=== PATIENT | female | born 1940 | race Caucasian/White ===

== ENCOUNTER 2016-08-03 08:55 | Outpatient (CLI) | payer MEDICARE ==
[2016-08-03 10:13] LABS: #Basophils 0.1 thou/uL (0.0-0.2); #Eosinphils 0.3 thou/uL (0.0-0.7); #Lymphocytes 1.1 thou/uL (1.20-3.40); #Monocytes 0.5 thou/uL (0.11-0.59); %Basophils 1.4 % (0.0-1.0); %Eosinophils 6.7 % (0.0-10.0); %Lymphocytes 21.3 % (21.0-51.0); %Monocytes 10.1 % (0.0-10.0); %Neutrophils 60.5 % (42.0-75.0); Hemoglobin 12.8 g/dL (12.0-16.0); Mean Corpuscular HGB CONC 31.1 g/dL (32.0-36.0); Mean Corpuscular Hemoglobin 30.8 pg (27.0-31.0); Mean Corpuscular Volume 98.8 fl (81.0-99.0); Mean Platelet Volume 9.2 fL (7.4-10.4); Platelet Count 172 thou/uL (130-400); RBC Distribution Width 15.2 % (11.5-14.5); Red Blood Cell (RBC) Count 4.15 mill/uL (4.20-5.40)
[2016-08-03 10:30] LABS: ALT (SGPT) 17 U/L (0-55); AST (SGOT) 25 U/L (5-34); Alkaline Phosphatase 111 U/L (40-150); Anion Gap 15 mmol/L (10-20); BUN (Urea Nitrogen) 16 mg/dL (9.8-20.1); Bilirubin, Total 0.5 mg/dL (0.2-1.2); Calc. Creatinine Clearance 0 mL/min (70-130); Calcium 9.3 mg/dL (7.8-10.44); Carbon Dioxide 27 mmol/L (23-31); Chloride 104 mmol/L (98-107); Cholesterol 200 mg/dL (< 200 Desired); Estimated GFR-MDRD 45; Globulin 2.4 g/dL (2.4-3.5); Glucose 93 mg/dL (83-110); HDL Cholesterol 40 mg/dL (>60 Neg Risk); LDL Cholesterol, Calculated 133 mg/dL; Potassium 4.6 mmol/L (3.5-5.1); Protein, Total 6.4 g/dL (5.8-8.1); Sodium 141 mmol/L (136-145); Triglycerides 137 mg/dL (Less than 150)
[2016-08-03 10:42] LABS: Bilirubin Negative (Negative); Blood, Urine Negative (Negative); Clarity Clear (Clear); Glucose, Urine (Dipstick) Negative (Negative); Leukocyte Negative (Negative); Nitrite Negative (Negative); Protein, Urine (Dipstick) Negative (Neg-Trace); Urobilinogen 0.2 mg/dL (0.2-1.0); pH, Urine 5.5 (5.0-9.0)
[2016-08-03 10:45] LABS: Specific Gravity, Urine 1.028 (1.002-1.036)
[2016-08-03 10:57] LABS: Bacteria/HPF None Seen HPF (None Seen); RBC/HPF None Seen HPF (0-3); Squamous Epithelial 0-3 HPF (0-3); WBC/HPF None Seen HPF (0-3)
[2016-08-03 10:59] LABS: Crystals/HPF 1+ URIC ACID HPF (Negative)
== END 2016-08-03 08:56 ==
LOC: MADLABBHPM 08:55
PROVIDERS: ATTEND Family Medicine
DX: E78.5 Hyperlipidemia, unspecified (principal); I10 Essential (primary) hypertension
CPT/HCPCS: 36415; 80053; 80061; 81001; 84443; 85025

== ENCOUNTER 2016-10-30 09:28 | Outpatient (CLI) | payer MEDICARE ==
[2016-10-30 10:12] LABS: #Basophils 0.1 thou/uL (0.0-0.2); #Eosinphils 0.2 thou/uL (0.0-0.7); #Monocytes 0.5 thou/uL (0.11-0.59); #Neutrophils 4.8 thou/uL (1.40-6.50); %Basophils 1.6 % (0.0-1.0); %Eosinophils 3.1 % (0.0-10.0); %Lymphocytes 15.1 % (21.0-51.0); %Monocytes 7.7 % (0.0-10.0); %Neutrophils 72.5 % (42.0-75.0); Hemoglobin 13.5 g/dL (12.0-16.0); Mean Corpuscular HGB CONC 32.6 g/dL (32.0-36.0); Mean Corpuscular Hemoglobin 32.7 pg (27.0-31.0); Mean Corpuscular Volume 100.2 fl (81.0-99.0); Platelet Count 162 thou/uL (130-400); RBC Distribution Width 13.1 % (11.5-14.5); Red Blood Cell (RBC) Count 4.13 mill/uL (4.20-5.40); White Blood Cell (WBC) Count 6.7 thou/uL (4.8-10.8)
[2016-10-30 10:26] LABS: Hemoglobin A1c 5.1 % (4.0-6.0)
[2016-10-30 10:38] LABS: ALT (SGPT) 18 U/L (8-55); AST (SGOT) 24 U/L (5-34); Albumin 3.7 g/dL (3.4-4.8); Alkaline Phosphatase 122 U/L (40-150); Anion Gap 14 mmol/L (10-20); BUN (Urea Nitrogen) 22 mg/dL (9.8-20.1); Bilirubin, Direct 0.3 mg/dL (0.1-0.3); Bilirubin, Total 0.7 mg/dL (0.2-1.2); Calc. Creatinine Clearance 0 mL/min (70-130); Carbon Dioxide 27 mmol/L (23-31); Cardiac Risk 4.5 (Less than 4.5); Chloride 106 mmol/L (98-107); Cholesterol 174 mg/dl (< 200 Desired); Estimated GFR-MDRD 50; Glucose 98 mg/dL (83-110); HDL Cholesterol 39 mg/dL (>60 Neg Risk); LDL Cholesterol, Calculated 107 mg/dL; Potassium 4.6 mmol/L (3.5-5.1); Protein, Total 6.2 g/dL (6.0-8.3); Sodium 142 mmol/L (136-145); Triglycerides 140 mg/dL (Less than 150)
== END 2016-10-30 09:29 | disposition home or self-care (01) ==
LOC: MADLABBHPM 09:28
PROVIDERS: ATTEND Family Medicine
DX: E78.5 Hyperlipidemia, unspecified (principal); N18.3 Chronic kidney disease, stage 3 (moderate)
CPT/HCPCS: 36415; 80048; 80061; 80076; 83036; 85025

== ENCOUNTER 2017-01-27 09:29 | Outpatient (CLI) | payer MEDICARE ==
[2017-01-27 11:37] LABS: ALT (SGPT) 24 U/L (8-55); AST (SGOT) 28 U/L (5-34); Albumin 3.9 g/dL (3.4-4.8); Alkaline Phosphatase 127 U/L (40-150); Anion Gap 11 mmol/L (10-20); BUN (Urea Nitrogen) 20 mg/dL (9.8-20.1); Bilirubin, Direct 0.2 mg/dL (0.1-0.3); Bilirubin, Total 0.6 mg/dL (0.2-1.2); Calc. Creatinine Clearance 0 mL/min (70-130); Calcium 9.2 mg/dL (7.8-10.44); Carbon Dioxide 26 mmol/L (23-31); Cardiac Risk 5.1 (Less than 4.5); Chloride 108 mmol/L (98-107); Cholesterol 195 mg/dl (< 200 Desired); Estimated GFR-MDRD 43; Glucose 95 mg/dL (83-110); HDL Cholesterol 38 mg/dL (>60 Neg Risk); LDL Cholesterol, Calculated 130 mg/dL; Potassium 4.3 mmol/L (3.5-5.1); Protein, Total 6.7 g/dL (6.0-8.3); Sodium 141 mmol/L (136-145); Triglycerides 133 mg/dL (Less than 150)
== END 2017-01-27 09:30 | disposition home or self-care (01) ==
LOC: MADLABBHPM 09:29
PROVIDERS: ATTEND Family Medicine
DX: E78.5 Hyperlipidemia, unspecified (principal); E55.9 Vitamin D deficiency, unspecified; I10 Essential (primary) hypertension
CPT/HCPCS: 36415; 80048; 80061; 80076; 82306

== ENCOUNTER 2018-03-15 18:49 | Inpatient (IN) | payer MEDICARE ==
[2018-03-15 19:57] VITALS: BMI 38.9
[2018-03-15] MEDS ORDERED: Acetaminophen 325 MG TAB PO PRN (21:47)
[2018-03-15] MEDS ORDERED: traMADol HCl 50 MG TAB PO SCH (22:30)
[2018-03-15] MEDS ORDERED: Fluticasone Propionate Nasal Spray 16 gm Bottle NASAL SCH (22:30)
[2018-03-15] MEDS ORDERED: Acyclovir 200 mg Capsule PO SCH (22:30)
[2018-03-15] MEDS ORDERED: Melatonin 3 MG TAB PO SCH (22:30)
[2018-03-15] MEDS ORDERED: Pregabalin 50 MG CAP PO SCH (22:30)
[2018-03-16] MEDS: Piperacillin/Tazobactam 4.5 GM in Sodium Chloride 0.9% 100 ML IVPB SCH ×4 (01:39→19:20)
[2018-03-16] MEDS: Acyclovir 200 mg Capsule PO SCH ×2 (08:01→20:52)
[2018-03-16] MEDS: Loratadine 10 MG TAB PO SCH (08:02)
[2018-03-16] MEDS: Pregabalin 50 MG CAP PO SCH ×2 (08:02→20:54)
[2018-03-16] MEDS: Diltiazem HCl SR 60 mg Capsule PO SCH (08:03)
[2018-03-16] MEDS: Aspirin 325 MG TAB PO SCH (08:04)
[2018-03-16] MEDS: Donepezil HCl 10 MG TAB PO SCH (08:05)
[2018-03-16] MEDS ORDERED: Prevnar 13-Val Conj/PF 0.5 ML SYRINGE IM ONE (09:00)
--- NOTE | 2018-03-16 13:28 | HP ---
Admitted to [facility] extended care on the evening of 03/15/2018. CHIEF COMPLAINT: Weakness and wound care. PRESENT ILLNESS: The patient is a 77-year-old white female who has a history of hypertension, paroxy smal atrial fibrillation, pulmonary embolism from a deep vein thrombosis in 2011 for which she underw ent an inferior vena caval filter placement. She also has a history of Alzheimer's dementia. The nyla watson lives at home and has been independent of her ADLs. The patient has a history of bunion deform ity of her feet. She has developed a chronic ulcer on the medial aspect of the MP joint of the left great toe. She was admitted to the hospital at [facility] on 03/09/2018 because the foot was red and appeared infected and appeared to be involved in the bone. The patient was hospitalized at [facility] from 03/09/2018 until 03/15/2018. There she was seen by Dr. Mcintosh, a podiat rist and required an amputation of the left great toe and partial amputation of the first metatarsal and debridement of an abscess. The wound was left open and packed with wet to dry dressing. The wou nd grew a Pseudomonas aeruginosa and Enterococcus species. She was seen in consultation by Dr. Sorto , Infectious Disease physician, who recommended treatment for the Pseudomonas, which had brought susc eptibility and for the Enterococcus using the Zosyn. Once the wound looks much better can switch her to Cipro and Augmentin p.o. for a 4-week period. The patient was discharged on the Zosyn with the i ntent to later switch her to these oral medications. The wound gradually improved and it was recomme nded that she be managed with the wound VAC. She was left very weak, had not really been up out of b ed. Her deep venous thrombosis prophylaxis was managed with Lovenox. While in the hospital the giovanna ent underwent an arterial Doppler of the left lower leg that showed no evidence of arterial occlusion . The patient was transferred to [facility] late on the evening of 03/15/2018 and her routine medicines were continued and the Zosyn was continued. The patient was seen early on the morning of 03/16/2018. She said she was feeling better. Her foot felt better and she was having no pain. The patient said she has not been up yet out of bed other th an to sit on the side of the bed. She said she is feeling better. At home she was independent of al l her ADLs. She lives with her and has family that looks in on her frequently. PAST HISTORY: Hospitalized at [facility] from 03/09/2018 until 03/15/2018 for osteomyelit is of the first metatarsal head and proximal phalanx of the left great toe requiring amputation of th e toe and partial amputation of the metatarsal on 03/11/2018. The wound healing by secondary intenti on. The patient has generalized osteoarthritis, has undergone a left total knee replacement in 2014, has hypertension, paroxysmal atrial fibrillation, history of pulmonary embolism of the left leg in 2 012 requiring placement of an inferior vena caval filter. The placement of the filter device was on 09/2013 after development of a deep vein thrombosis, history of a pulmonary embolus was in 2011. She has peripheral neuropathy of the lower extremity, chronic pain from the peripheral neuropathy manage d with Lyrica. She has trouble sleeping at night due to the pain and manages with tramadol. She has gastroesophageal reflux disease, Alzheimer's disease, herpes simplex, intermittent outbreaks managed with prophylactic medication. Obesity. The patient had a resection of the left fifth metatarsal he ad 2011. She has spondylosis of the LS spine. She has had orthoscopic surgery on the right shoulder and rotator cuff repair in 1998, this required a repeat right rotator cuff repair in 2002. She has had a stomach stapling done in 1981 and then removal of the stapling in 1984. She has had a VAN, hem orrhoidectomy, cholecystectomy. She has venous insufficiency of the lower extremities. The patient had a left heart catheterization in 2013 which showed no significant coronary artery disease. PRESENT MEDICATIONS: Acetaminophen 650 mg every 6 hours as needed, acyclovir 400 mg b.i.d., aspirin 325 mg daily, vitamin D3 4000 units daily, Diltiazem SR 120 mg daily, Aricept 5 mg daily, fluticasone 2 sprays in each nostrum daily, melatonin 3 mg at bedtime, Claritin 10 mg daily, Namenda 5 mg daily, pantoprazole 40 mg daily, Zosyn 4.5 grams q.6 hours, Lyrica 50 mg b.i.d., tramadol 50 mg at bedtime. ALLERGIES: MORPHINE. REVIEW OF SYSTEMS: The patient said she is just weak. She has had no fever. She does not think her weight has changed any. HEAD AND NECK: No complaints. PULMONARY: No shortness of breath. CARDIOVASCULAR: No chest pain. GASTROINTESTINAL: No nausea or vomiting. Appetite is not as good as usual. Bowels are moving well. MUSCULOSKELETAL: Left foot is not hurting. The patient said the swelling that she usually has in th e leg is much better since she has been at bed rest. ADLs: Ordinarily independent of her ADLs at [facility] prior to this hospitalization. HABITS: Alcohol none. Tobacco none. SOCIAL HISTORY: The patient lives at home with her , has family that lives close that assists her with her instrumental ADLs. CODE STATUS: Full code. PHYSICAL EXAMINATION: GENERAL: Shows a pleasant 77-year-old white female who is sitting up in bed. She recognizes me, rec ognizes her [id number], knows she is in the hospital and had no complaint. She appeared in no d istress. VITAL SIGNS: Shows a temperature of 98.2, pulse 71, respirations 20, O2 saturation 94% on room air, blood pressure 140/61. Her weight is 256. HEAD: Normocephalic and atraumatic. EYES: Pupils were equal, round, and reactive. EARS: Left TM clear, right TM blocked by some dry cerumen. NOSE: Normal. MOUTH AND THROAT: Normal. NECK: Carotids are equal and strong, no bruits. Thyroid not enlarged. LUNGS: Clear. HEART: Regular rate. No murmurs. ABDOMEN: Obese. There is no organomegaly nor areas of tenderness. EXTREMITIES: Lower extremities, no edema. Right foot, there is no edema. The patient has a very sm all hallux valgus deformity, left foot. The patient has had a recent amputation of the great toe and partial resection of the first metacarpal. The wound is open and there is a deep pocket that was pa cked with moistened gauze. This was removed. The pocket looks clean. There is no odor. The surrou nding tissue is not red. She has 1 holding suture proximal and distal. PT will be packing this usin g a wound VAC. The pulses in the foot are 2+. NEUROLOGIC: The patient is alert, oriented to person, place, and situation. There is no focal weakn ess, just generalized weakness. IMPRESSION: 1. Generalized weakness and deconditioning. A. Following recent amputation of the left first toe and partial resection of the metatarsal for ost eomyelitis. 2. Osteomyelitis involving the left first metatarsal head and proximal phalanx. A. Status post amputation of the left great toe and partial amputation of the metacarpal and debride ment of an abscess of the left foot on 03/11/[address] Paramjit Mcintosh, DPKillian. B. Cultures grew Pseudomonas aeruginosa and Enterococcus species. C. Managed initially with Zosyn and later will be switched to Cipro and Augmentin for a 4-week perio d. D. Wound management with a wound VAC as of 03/16/2018. 3. Hospitalized at [facility] from 03/09/2018 until 03/15/2018 for osteomyelitis of the p roximal phalanx of the left great toe and the metatarsal head. 4. Paroxysmal atrial fibrillation. A. Rate controlled. 5. History of pulmonary embolism from the left leg deep vein thrombosis 2011. A. Recurrence of the deep venous thrombosis of the lower extremity requiring inferior vena caval serafin ter placement in 2014. 6. Peripheral neuropathy of the lower extremities. 7. Spondylosis of the lumbosacral spine. 8. Chronic pain secondary to peripheral neuropathy of the extremities and generalized osteoarthritis . A. Controlled as of 03/16/2018. 9. Gastroesophageal reflux disease. 10. Insomnia. 11. Obesity. 12. Herpes simplex, intermittent. 13. Vitamin D deficiency. 14. Alzheimer's disease. PLAN: The patient has been admitted to [facility] for physical therapy for strengthening, cond itioning and gait training. Also, she has been admitted here for wound care using a wound VAC. PT w ill tend the wound and this wound VAC will be changed on Wednesday, Wednesday, and Fridays. The wound l ooks very clean. We will continue the Zosyn and after wound continues to improve we will switch to o ral medication using Cipro and Augmentin for a 4-week period.
[2018-03-16] MEDS ORDERED: Piperacillin/Tazobactam 4.5 GM VIAL ONE (19:03)
[2018-03-16] MEDS: Fluticasone Propionate Nasal Spray 16 gm Bottle NASAL SCH (20:51)
[2018-03-16] MEDS: traMADol HCl 50 MG TAB PO SCH (20:52)
[2018-03-16] MEDS: Melatonin 3 MG TAB PO SCH (20:54)
[2018-03-17] MEDS: Piperacillin/Tazobactam 4.5 GM in Sodium Chloride 0.9% 100 ML IVPB SCH ×4 (03:27→20:37)
[2018-03-17 05:56] LABS: #Basophils 0.1 thou/uL (0.0-0.2); #Eosinphils 0.5 thou/uL (0.0-0.7); #Monocytes 0.6 thou/uL (0.11-0.59); #Neutrophils 6.3 thou/uL (1.40-6.50); %Basophils 1.4 % (0.0-1.0); %Eosinophils 5.4 % (0.0-10.0); %Lymphocytes 11.7 % (21.0-51.0); %Monocytes 6.9 % (0.0-10.0); %Neutrophils 74.7 % (42.0-75.0); Hemoglobin 11.9 g/dL (12.0-16.0); Mean Corpuscular HGB CONC 32.2 g/dL (32.0-36.0); Mean Corpuscular Hemoglobin 29.5 pg (27.0-31.0); Mean Corpuscular Volume 91.5 fL (78.0-98.0); Mean Platelet Volume 9.4 fL (7.4-10.4); Platelet Count 235 thou/uL (130-400); RBC Distribution Width 13.6 % (11.5-14.5); Red Blood Cell (RBC) Count 4.03 mill/uL (4.20-5.40); White Blood Cell (WBC) Count 8.4 thou/uL (4.8-10.8)
[2018-03-17 06:08] LABS: ALT (SGPT) 9 U/L (8-55); AST (SGOT) 17 U/L (5-34); Albumin 2.9 g/dL (3.4-4.8); Alkaline Phosphatase 74 U/L (40-150); Anion Gap 13 mmol/L (10-20); BUN (Urea Nitrogen) 9 mg/dL (9.8-20.1); Bilirubin, Total 0.4 mg/dL (0.2-1.2); Calc. Creatinine Clearance 115 mL/min (70-130); Calcium 8.8 mg/dL (7.8-10.44); Carbon Dioxide 27 mmol/L (23-31); Chloride 106 mmol/L (98-107); Estimated GFR-MDRD 75; Globulin 2.6 g/dL (2.4-3.5); Glucose 129 mg/dL (83-110); Potassium 3.3 mmol/L (3.5-5.1); Protein, Total 5.5 g/dL (6.0-8.3); Sodium 143 mmol/L (136-145)
[2018-03-17] MEDS: Diltiazem HCl SR 60 mg Capsule PO SCH (08:50)
[2018-03-17] MEDS: Acyclovir 200 mg Capsule PO SCH ×2 (08:50→20:37)
[2018-03-17] MEDS: Pregabalin 50 MG CAP PO SCH ×2 (08:51→20:38)
[2018-03-17] MEDS: Aspirin 325 MG TAB PO SCH (08:52)
[2018-03-17] MEDS: Loratadine 10 MG TAB PO SCH (08:52)
[2018-03-17] MEDS: Donepezil HCl 10 MG TAB PO SCH (08:52)
[2018-03-17] MEDS: Enoxaparin Sodium 40 MG/0.4 ML SYRINGE SC SCH (08:52)
--- NOTE | 2018-03-17 09:07 | PRG ---
DATE OF SERVICE: 03/17/2018 SUBJECTIVE: The patient said that she slept good last night. She is feeling good this morning. Yes terday she sat up some and worked with therapy. The wound VAC was placed in the wound on the left fo ot and has been working fine. OBJECTIVE: The patient is lying in bed this with the head elevated. She is alert, talkative, appear s comfortable and in no distress. Her vital signs show a temperature of 97.4, pulse 72, respirations 20, O2 sat 95% on room air, blood pressure 139/72. Lungs are clear. Heart, regular rate. Extremit ies: No edema. The left foot is bandaged with a wound VAC. Lab shows an H&H of 11.9 and 36.9, WBC count 8400 with 75% segs, 12% lymphocytes, and platelet count of 235,000. Her sodium was 143, potassium 3.3, BUN 9, creatinine 0.75, glucose 129. ASSESSMENT: 1. Generalized weakness and deconditioning. A. Following recent amputation of the left first toe and partial resection of the metatarsal for ost eomyelitis. B. Improved, sitting up in a bedside chair some as of 03/17/2018. 2. Osteomyelitis involving the left first metatarsal head and proximal phalanx. A. Status post amputation of the left great toe and partial amputation of the metacarpal and debride ment of an abscess of the left foot on 03/11/[address] Paramjit Mcintosh, DPM. B. Cultures grew Pseudomonas aeruginosa and Enterococcus species. C. Managed initially with Zosyn and later will be switched to Cipro and Augmentin for a 4-week perio d. D. Wound management with a wound VAC that was initiated on 03/16/2018. 1. Stable as of 03/17/2018. 3. Hospitalized at [facility] from 03/09/2018 until 03/15/2018 for osteomyelitis of the p roximal phalanx of the left great toe and the metatarsal head. 4. Paroxysmal atrial fibrillation. A. Rate controlled. 5. History of pulmonary embolism from the left leg deep vein thrombosis 2011. A. Recurrence of the deep venous thrombosis of the lower extremity requiring inferior vena caval serafin ter placement in 2014. 6. Peripheral neuropathy of the lower extremities. 7. Spondylosis of the lumbosacral spine. 8. Chronic pain secondary to peripheral neuropathy of the extremities and generalized osteoarthritis . A. Controlled as of 03/16/2018. 9. Gastroesophageal reflux disease. 10. Insomnia. 11. Obesity. 12. Herpes simplex, intermittent. 13. Vitamin D deficiency. 14. Alzheimer's disease. 15. Mild hypokalemia. PLAN: Continue present care. Continue PT, OT. Will place the patient on potassium supplementation.
[2018-03-17] MEDS: Potassium Chloride 10 MEQ TAB PO SCH (17:07)
[2018-03-17] MEDS: Fluticasone Propionate Nasal Spray 16 gm Bottle NASAL SCH (20:37)
[2018-03-17] MEDS: Melatonin 3 MG TAB PO SCH (20:37)
[2018-03-17] MEDS: traMADol HCl 50 MG TAB PO SCH (20:39)
[2018-03-18] MEDS: Piperacillin/Tazobactam 4.5 GM in Sodium Chloride 0.9% 100 ML IVPB SCH ×4 (01:59→20:23)
[2018-03-18] MEDS: Aspirin 325 MG TAB PO SCH (09:48)
[2018-03-18] MEDS: Potassium Chloride 10 MEQ TAB PO SCH ×2 (09:49→17:08)
[2018-03-18] MEDS: Pregabalin 50 MG CAP PO SCH ×2 (09:49→20:25)
[2018-03-18] MEDS: Loratadine 10 MG TAB PO SCH (09:50)
[2018-03-18] MEDS: Diltiazem HCl SR 60 mg Capsule PO SCH (09:50)
[2018-03-18] MEDS: Donepezil HCl 10 MG TAB PO SCH (09:50)
[2018-03-18] MEDS: Enoxaparin Sodium 40 MG/0.4 ML SYRINGE SC SCH (09:51)
[2018-03-18] MEDS: Acyclovir 200 mg Capsule PO SCH ×2 (09:51→20:24)
[2018-03-18 10:12] LABS: ALT (SGPT) 9 U/L (8-55); AST (SGOT) 16 U/L (5-34); Albumin 3.2 g/dL (3.4-4.8); Alkaline Phosphatase 75 U/L (40-150); Anion Gap 15 mmol/L (10-20); BUN (Urea Nitrogen) 14 mg/dL (9.8-20.1); Bilirubin, Total 0.4 mg/dL (0.2-1.2); Calc. Creatinine Clearance 104 mL/min (70-130); Calcium 9.1 mg/dL (7.8-10.44); Carbon Dioxide 27 mmol/L (23-31); Chloride 107 mmol/L (98-107); Estimated GFR-MDRD 67; Globulin 2.5 g/dL (2.4-3.5); Glucose 142 mg/dL (83-110); Potassium 3.7 mmol/L (3.5-5.1); Protein, Total 5.7 g/dL (6.0-8.3); Sodium 145 mmol/L (136-145)
--- NOTE | 2018-03-18 10:26 | PRG ---
DATE OF SERVICE: 03/18/2018 SUBJECTIVE: The patient says she is doing better. She has been up sitting in the chair and physical therapy has been working with her. She has been walking up to 30 feet with a rolling walker and ass istance. A wound VAC on the left foot has been changed on Wednesday, Wednesday, and Fridays. OBJECTIVE: GENERAL: The patient is sitting up in a chair, is alert, appears very comfortable in no distress. V ITAL SIGNS: Her temperature is 98.5, pulse 69, respirations 20, O2 sat 95% on room air, blood pressu re 155/67. LUNGS: Clear. HEART: Regular rate. EXTREMITIES: Left foot dressing is dry. Wound VAC is in place. LABORATORY DATA: Hemoglobin A1c last done in October of last year was 5.1. ASSESSMENT: 1. Generalized weakness and deconditioning. A. Following recent amputation of the left first toe and partial resection of the metatarsal for ost eomyelitis. B. Improved, tolerating, sitting in bed, up chair and walking short distances as of 03/18/2018. 2. Osteomyelitis involving the left first metatarsal head and proximal phalanx. A. Status post amputation of the left great toe and partial amputation of the metacarpal and debride ment of an abscess of the left foot on 03/11/[address] Paramjit Mcintosh, DPKillian. B. Cultures grew Pseudomonas aeruginosa and Enterococcus species. C. Managed initially with Zosyn and later will be switched to Cipro and Augmentin for a 4-week perio d. D. Wound management with a wound VAC that was initiated on 03/16/2018. 1. Stable as of 03/18/2018. 3. Hospitalized at [facility] from 03/09/2018 until 03/15/2018 for osteomyelitis of the p roximal phalanx of the left great toe and the metatarsal head. 4. Paroxysmal atrial fibrillation. A. Rate controlled. 5. History of pulmonary embolism from the left leg deep vein thrombosis 2011. A. Recurrence of the deep venous thrombosis of the lower extremity requiring inferior vena caval serafin ter placement in 2014. 6. Peripheral neuropathy of the lower extremities. 7. Spondylosis of the lumbosacral spine. 8. Chronic pain secondary to peripheral neuropathy of the extremities and generalized osteoarthritis . A. Controlled as of 03/16/2018. 9. Gastroesophageal reflux disease. 10. Insomnia. 11. Obesity. 12. Herpes simplex, intermittent. 13. Vitamin D deficiency. 14. Alzheimer's disease. 15. Mild hypokalemia. PLAN: Continue PT and OT. Continue wound care. Continue antibiotics.
[2018-03-18] MEDS: Melatonin 3 MG TAB PO SCH (20:24)
[2018-03-18] MEDS: Fluticasone Propionate Nasal Spray 16 gm Bottle NASAL SCH (20:24)
[2018-03-18] MEDS: traMADol HCl 50 MG TAB PO SCH (20:25)
[2018-03-19] MEDS: Piperacillin/Tazobactam 4.5 GM in Sodium Chloride 0.9% 100 ML IVPB SCH ×4 (04:24→21:59)
[2018-03-19 05:50] LABS: #Basophils 0.2 thou/uL (0.0-0.2); #Eosinphils 0.7 thou/uL (0.0-0.7); #Monocytes 0.8 thou/uL (0.11-0.59); #Neutrophils 4.5 thou/uL (1.40-6.50); %Basophils 2.5 % (0.0-1.0); %Eosinophils 9.5 % (0.0-10.0); %Lymphocytes 13.6 % (21.0-51.0); %Monocytes 11.1 % (0.0-10.0); %Neutrophils 63.3 % (42.0-75.0); Hemoglobin 12.1 g/dL (12.0-16.0); Mean Corpuscular HGB CONC 33.1 g/dL (32.0-36.0); Mean Corpuscular Hemoglobin 30.3 pg (27.0-31.0); Mean Corpuscular Volume 91.5 fL (78.0-98.0); Mean Platelet Volume 8.6 fL (7.4-10.4); Platelet Count 241 thou/uL (130-400); RBC Distribution Width 13.6 % (11.5-14.5); White Blood Cell (WBC) Count 7.1 thou/uL (4.8-10.8)
[2018-03-19] MEDS: Diltiazem HCl SR 60 mg Capsule PO SCH (10:00)
[2018-03-19] MEDS: Loratadine 10 MG TAB PO SCH (10:00)
[2018-03-19] MEDS: Aspirin 325 MG TAB PO SCH (10:00)
[2018-03-19] MEDS: Potassium Chloride 10 MEQ TAB PO SCH ×2 (10:02→17:15)
[2018-03-19] MEDS: Acyclovir 200 mg Capsule PO SCH ×2 (10:02→20:34)
[2018-03-19] MEDS: Pregabalin 50 MG CAP PO SCH ×2 (10:02→20:35)
[2018-03-19] MEDS: Donepezil HCl 10 MG TAB PO SCH (10:03)
[2018-03-19] MEDS: Enoxaparin Sodium 40 MG/0.4 ML SYRINGE SC SCH (10:03)
[2018-03-19 15:17] LABS: Hemoglobin A1c 5.7 % (4.0-6.0)
[2018-03-19] MEDS: Melatonin 3 MG TAB PO SCH (20:35)
[2018-03-19] MEDS: Fluticasone Propionate Nasal Spray 16 gm Bottle NASAL SCH (20:35)
[2018-03-19] MEDS: traMADol HCl 50 MG TAB PO SCH (20:36)
[2018-03-20] MEDS: Piperacillin/Tazobactam 4.5 GM in Sodium Chloride 0.9% 100 ML IVPB SCH ×3 (04:15→17:08)
[2018-03-20] MEDS: Donepezil HCl 10 MG TAB PO SCH (09:00)
[2018-03-20] MEDS: Saccharomyces boulardii 250 MG CAP PO SCH (09:00)
[2018-03-20] MEDS: Acyclovir 200 mg Capsule PO SCH ×2 (09:00→20:25)
[2018-03-20] MEDS: Aspirin 325 MG TAB PO SCH (09:01)
[2018-03-20] MEDS: Loratadine 10 MG TAB PO SCH (09:01)
[2018-03-20] MEDS: Diltiazem HCl SR 60 mg Capsule PO SCH (09:01)
[2018-03-20] MEDS: Potassium Chloride 10 MEQ TAB PO SCH ×2 (09:01→17:08)
[2018-03-20] MEDS: Pregabalin 50 MG CAP PO SCH ×2 (09:01→20:26)
[2018-03-20] MEDS: Enoxaparin Sodium 40 MG/0.4 ML SYRINGE SC SCH (09:02)
[2018-03-20] MEDS ORDERED: Amoxicillin/Potassium Clav 875 MG TAB PO SCH (19:45)
[2018-03-20] MEDS: Fluticasone Propionate Nasal Spray 16 gm Bottle NASAL SCH (20:25)
[2018-03-20] MEDS: Ciprofloxacin 500 MG TAB PO SCH (20:25)
[2018-03-20] MEDS: Melatonin 3 MG TAB PO SCH (20:26)
[2018-03-20] MEDS: traMADol HCl 50 MG TAB PO SCH (20:27)
[2018-03-21] MEDS: Ciprofloxacin 500 MG TAB PO SCH ×2 (05:37→20:11)
[2018-03-21] MEDS: Acyclovir 200 mg Capsule PO SCH ×2 (08:34→20:11)
[2018-03-21] MEDS: Diltiazem HCl SR 60 mg Capsule PO SCH (08:34)
[2018-03-21] MEDS: Saccharomyces boulardii 250 MG CAP PO SCH (08:35)
[2018-03-21] MEDS: Amoxicillin/Potassium Clav 875 MG TAB PO SCH ×2 (08:35→17:17)
[2018-03-21] MEDS: Pregabalin 50 MG CAP PO SCH ×2 (08:35→20:11)
[2018-03-21] MEDS: Loratadine 10 MG TAB PO SCH (08:35)
[2018-03-21] MEDS: Potassium Chloride 10 MEQ TAB PO SCH ×2 (08:35→17:17)
[2018-03-21] MEDS: Aspirin 325 MG TAB PO SCH (08:36)
[2018-03-21] MEDS: Enoxaparin Sodium 40 MG/0.4 ML SYRINGE SC SCH (08:36)
[2018-03-21] MEDS: Donepezil HCl 10 MG TAB PO SCH (08:36)
--- NOTE | 2018-03-21 11:43 | PRG ---
DATE OF SERVICE: 03/19/2018 SUBJECTIVE: The patient said overall she is feeling better. They did have some trouble with restart ing of her IV that ceased working yesterday, but was able to be restarted. Hope to try to keep the s ite until 03/21/2018, in order to continue the piperacillin and tazobactam, plan on stopping that then. If the IV is lost, it cannot not be easily restarted. We will go ahead and make the swit ch to oral antibiotics before then. Nurses said that when the wound VAC was changed yesterday, [facility] said that the wound looked very, very good and clean. The patient has developed some diarrhea. Has not had the odor of C. difficile. She was recently started on some supplements that may be the c ulprit. She is not on any laxatives. OBJECTIVE: The patient is sitting up in a chair. She is alert, talkative, looks better, and appears in no acute distress. Her vital signs show a temperature 97.1, pulse 56, respirations 16, O2 sat 96 % on room air, blood pressure 167/88. Lungs are clear. Heart, regular rate. Lower extremities with trace edema. Left foot is wrapped and dressing is dry. There is a wound VAC present. LABORATORY DATA: Her lab shows an H and H of 12.1 and 36.6, white cell count 7100 with 63% segs, 14% lymphocytes, and a platelet count of 241,000. Sed rate 55. Sodium 145, potassium 3.7, BUN 14, crea tinine 0.83, GFR 67, glucose 142. ASSESSMENT: 1. Generalized weakness and deconditioning. A. Following recent amputation of the left first toe and partial resection of the metatarsal for ost eomyelitis. B. Improved, tolerating, sitting in bed, up chair and walking short distances as of 03/19/2018. 2. Osteomyelitis involving the left first metatarsal head and proximal phalanx. A. Status post amputation of the left great toe and partial amputation of the metacarpal and debride ment of an abscess of the left foot on 03/11/[address] Paramjit Mcintosh, DPKillian. B. Cultures grew Pseudomonas aeruginosa and Enterococcus species. C. Managed initially with Zosyn and later will be switched to Cipro and Augmentin for a 4-week perio d. D. Wound management with a wound VAC that was initiated on 03/16/2018. 1. Gradual improvement, VAC system working well as of 03/19/2018. 3. Hospitalized at [facility] from 03/09/2018 until 03/15/2018 for osteomyelitis of the p roximal phalanx of the left great toe and the metatarsal head. 4. Paroxysmal atrial fibrillation. A. Rate controlled. 5. History of pulmonary embolism from the left leg deep vein thrombosis 2011. A. Recurrence of the deep venous thrombosis of the lower extremity requiring inferior vena caval serafin ter placement in 2014. 6. Peripheral neuropathy of the lower extremities. 7. Spondylosis of the lumbosacral spine. 8. Chronic pain secondary to peripheral neuropathy of the extremities and generalized osteoarthritis . A. Controlled as of 03/16/2018. 9. Gastroesophageal reflux disease. 10. Insomnia. 11. Obesity. 12. Herpes simplex, intermittent. 13. Vitamin D deficiency. 14. Alzheimer's disease. 15. Mild hypokalemia. A. Improved with potassium up to 3.7. 16. Diarrhea. PLAN: We will continue present care. Continue wound VAC care. Continue PT/OT. We will stop the di etary supplements that may be contributing to the diarrhea and place patient on a probiotic. If the patient loses her IV site, we will switch to the oral antibiotics that she has Augmentin and Cipro fo r a 4-week period.
--- NOTE | 2018-03-21 11:45 | PRG ---
DATE OF SERVICE: 03/21/2018 SUBJECTIVE: The patient said she is doing better, feeling better. Her diarrhea is much improved. T he patient's IV infiltrated last night and the Zosyn was stopped and she was started on oral antibiot ics using Cipro 500 mg b.i.d. for 1 month, and Augmentin 875 b.i.d. for one month. The patient is ju st walking back to the bathroom to her room aid carrying her wound VAC and with her walker. She is s itting in a chair and looks comfortable and in no distress. Her vital signs show a temperature of 97 .7, pulse 68, respirations 97, blood pressure this morning is pending, yesterday morning 142/69, in t he evening, 178/84. Lungs are clear. Heart, regular rate. Lower extremities, no edema. Left foot is wrapped with a bandage and has the wound VAC attached. This is due to be changed by PT later toda y. The patient's hemoglobin A1c was 5.7. C-reactive protein was 2.38. ASSESSMENT: 1. Generalized weakness and deconditioning. A. Following recent amputation of the left first toe and partial resection of the metatarsal for ost eomyelitis. B. Improved, transferring easier and walking longer distances with the use of a walker as of 018. 2. Osteomyelitis involving the left first metatarsal head and proximal phalanx. A. Status post amputation of the left great toe and partial amputation of the metacarpal and debride ment of an abscess of the left foot on 03/11/[address] Paramjit Mcintosh, DPM. B. Cultures grew Pseudomonas aeruginosa and Enterococcus species. C. Initial management with Zosyn was stopped on the evening of 03/20/2018. The patient was switched to Cipro and Augmentin orally for a 4-week period as of the evening of 03/20/2018. D. Wound management with a wound VAC that was initiated on 03/16/2018. 1. Improved as of 03/21/2018. 3. Hospitalized at [facility] from 03/09/2018 until 03/15/2018 for osteomyelitis of the p roximal phalanx of the left great toe and the metatarsal head. 4. Paroxysmal atrial fibrillation. A. Rate controlled. 5. History of pulmonary embolism from the left leg deep vein thrombosis 2011. A. Recurrence of the deep venous thrombosis of the lower extremity requiring inferior vena caval serafin ter placement in 2014. 6. Peripheral neuropathy of the lower extremities. 7. Spondylosis of the lumbosacral spine. 8. Chronic pain secondary to peripheral neuropathy of the extremities and generalized osteoarthritis . A. Controlled as of 03/16/2018. 9. Gastroesophageal reflux disease. 10. Insomnia. 11. Obesity. 12. Herpes simplex, intermittent. 13. Vitamin D deficiency. 14. Alzheimer's disease. 15. Mild hypokalemia. PLAN: Continue present care. We will continue the PT. Continue the wound VAC. The patient will be on the Augmentin 875 mg b.i.d. and the Cipro 500 mg b.i.d. for 4 weeks. This was started on the nareshsandy shelbyg of 03/20/2018.
[2018-03-21] MEDS: Melatonin 3 MG TAB PO SCH (20:11)
[2018-03-21] MEDS: Fluticasone Propionate Nasal Spray 16 gm Bottle NASAL SCH (20:11)
[2018-03-21] MEDS: traMADol HCl 50 MG TAB PO SCH (20:12)
[2018-03-22] MEDS: Ciprofloxacin 500 MG TAB PO SCH ×2 (05:47→20:23)
[2018-03-22] MEDS: Enoxaparin Sodium 40 MG/0.4 ML SYRINGE SC SCH (09:00)
[2018-03-22] MEDS: Amoxicillin/Potassium Clav 875 MG TAB PO SCH ×2 (09:00→17:06)
[2018-03-22] MEDS: Acyclovir 200 mg Capsule PO SCH ×2 (09:01→20:23)
[2018-03-22] MEDS: Aspirin 325 MG TAB PO SCH (09:01)
[2018-03-22] MEDS: Donepezil HCl 10 MG TAB PO SCH (09:01)
[2018-03-22] MEDS: Diltiazem HCl SR 60 mg Capsule PO SCH (09:03)
[2018-03-22] MEDS: Loratadine 10 MG TAB PO SCH (09:03)
[2018-03-22] MEDS: Potassium Chloride 10 MEQ TAB PO SCH ×2 (09:03→17:07)
[2018-03-22] MEDS: Pregabalin 50 MG CAP PO SCH ×2 (09:04→20:24)
[2018-03-22] MEDS: Saccharomyces boulardii 250 MG CAP PO SCH (09:04)
--- NOTE | 2018-03-22 09:15 | PRG ---
DATE OF SERVICE: 03/22/2018 SUBJECTIVE: The patient thinks she is doing better. She said she is walking further with physical t herapy. Therapist had changed her dressing on the wound VAC on the left foot yesterday. Wound is do ing better. OBJECTIVE: The patient lying in bed, alert, appears comfortable, in no distress. Her vital signs sh ow a temperature of 97.5, pulse 57, respirations 18, O2 sat 97% on room air, blood pressure 156/81. Lungs are clear. Heart, regular rate. Extremities, no edema. Left foot has dressing on the wound V AC present. ASSESSMENT: 1. Generalized weakness and deconditioning. A. Following recent amputation of the left first toe and partial resection of the metatarsal for ost eomyelitis. B. Improved, transferring easier and walking longer distances with the use of a walker as of 018. 2. Osteomyelitis involving the left first metatarsal head and proximal phalanx. A. Status post amputation of the left great toe and partial amputation of the metacarpal and debride ment of an abscess of the left foot on 03/11/[address] Paramjit Mcintosh, DPM. B. Cultures grew Pseudomonas aeruginosa and Enterococcus species. C. Initial management with Zosyn was stopped on the evening of 03/20/2018. The patient was switched to Cipro and Augmentin orally for a 4-week period as of the evening of 03/20/2018. D. Wound management with a wound VAC that was initiated on 03/16/2018. 1. Improved as of 03/22/2018. 3. Hospitalized at [facility] from 03/09/2018 until 03/15/2018 for osteomyelitis of the p roximal phalanx of the left great toe and the metatarsal head. 4. Paroxysmal atrial fibrillation. A. Rate controlled. 5. History of pulmonary embolism from the left leg deep vein thrombosis 2011. A. Recurrence of the deep venous thrombosis of the lower extremity requiring inferior vena caval serafin ter placement in 2014. 6. Peripheral neuropathy of the lower extremities. 7. Spondylosis of the lumbosacral spine. 8. Chronic pain secondary to peripheral neuropathy of the extremities and generalized osteoarthritis . A. Controlled as of 03/16/2018. 9. Gastroesophageal reflux disease. 10. Insomnia. 11. Obesity. 12. Herpes simplex, intermittent. 13. Vitamin D deficiency. 14. Alzheimer's disease. 15. Mild hypokalemia. PLAN: Continue present care. Continue PT. Continue wound care with the wound VAC.
[2018-03-22] MEDS: Fluticasone Propionate Nasal Spray 16 gm Bottle NASAL SCH (20:23)
[2018-03-22] MEDS: Melatonin 3 MG TAB PO SCH (20:24)
[2018-03-22] MEDS: traMADol HCl 50 MG TAB PO SCH (20:25)
[2018-03-23] MEDS: Ciprofloxacin 500 MG TAB PO SCH ×2 (05:52→20:26)
[2018-03-23] MEDS: Loratadine 10 MG TAB PO SCH (08:57)
[2018-03-23] MEDS: Enoxaparin Sodium 40 MG/0.4 ML SYRINGE SC SCH (08:57)
[2018-03-23] MEDS: Potassium Chloride 10 MEQ TAB PO SCH ×2 (08:57→17:09)
[2018-03-23] MEDS: Saccharomyces boulardii 250 MG CAP PO SCH (08:58)
[2018-03-23] MEDS: Acyclovir 200 mg Capsule PO SCH ×2 (08:58→20:26)
[2018-03-23] MEDS: Diltiazem HCl SR 60 mg Capsule PO SCH (08:58)
[2018-03-23] MEDS: Donepezil HCl 10 MG TAB PO SCH (08:58)
[2018-03-23] MEDS: Aspirin 325 MG TAB PO SCH (08:59)
[2018-03-23] MEDS: Amoxicillin/Potassium Clav 875 MG TAB PO SCH ×2 (08:59→17:09)
[2018-03-23] MEDS: Pregabalin 50 MG CAP PO SCH ×2 (08:59→20:26)
--- NOTE | 2018-03-23 11:04 | PRG ---
DATE OF SERVICE: 03/23/2018 SUBJECTIVE: The patient said she is doing better. She is doing much better with therapy, walking fu rther. The patient said that she wants to go home. She lives with her family and they think that he r will be able to assist her as needed along with home health, to assist with in-home therapy and for the wound VAC care. OBJECTIVE: GENERAL: The patient is sitting up in a chair, preparing to eat breakfast. She is alert, talkative, in good spirits, in no distress. VITAL SIGNS: Shows a temperature of 97.4, pulse 70, respirations 18, O2 sat 97% on room air, blood p ressure 136/76. LUNGS: Clear. HEART: Regular rate. EXTREMITIES: No edema. A wrap on the left foot with wound VAC. ASSESSMENT: 1. Generalized weakness and deconditioning. A. Following recent amputation of the left first toe and partial resection of the metatarsal for ost eomyelitis. B. Improved, transferring easier and walking longer distances with the use of a walker as of 018. 2. Osteomyelitis involving the left first metatarsal head and proximal phalanx. A. Status post amputation of the left great toe and partial amputation of the metacarpal and debride ment of an abscess of the left foot on 03/11/[address] Paramjit Mcintosh, DPM. B. Cultures grew Pseudomonas aeruginosa and Enterococcus species. C. Initial management with Zosyn was stopped on the evening of 03/20/2018. The patient was switched to Cipro and Augmentin orally for a 4-week period as of the evening of 03/20/2018. D. Wound management with a wound VAC that was initiated on 03/16/2018. 1. Improved as of 03/23/2018. 3. Hospitalized at [facility] from 03/09/2018 until 03/15/2018 for osteomyelitis of the p roximal phalanx of the left great toe and the metatarsal head. 4. Paroxysmal atrial fibrillation. A. Rate controlled. 5. History of pulmonary embolism from the left leg deep vein thrombosis 2011. A. Recurrence of the deep venous thrombosis of the lower extremity requiring inferior vena caval serafin ter placement in 2014. 6. Peripheral neuropathy of the lower extremities. 7. Spondylosis of the lumbosacral spine. 8. Chronic pain secondary to peripheral neuropathy of the extremities and generalized osteoarthritis . A. Controlled as of 03/16/2018. 9. Gastroesophageal reflux disease. 10. Insomnia. 11. Obesity. 12. Herpes simplex, intermittent. 13. Vitamin D deficiency. 14. Alzheimer's disease. 15. Mild hypokalemia. PLAN: Continue present care. Continue PT. Continue wound VAC care. Nurses family are making arran gements for her discharge on 03/25/2018. Home health will be contacted for in-home PT and OT and wound VAC care.
[2018-03-23] MEDS: Melatonin 3 MG TAB PO SCH (20:26)
[2018-03-23] MEDS: Fluticasone Propionate Nasal Spray 16 gm Bottle NASAL SCH (20:26)
[2018-03-23] MEDS: traMADol HCl 50 MG TAB PO SCH (20:27)
[2018-03-24 05:27] LABS: #Basophils 0.1 thou/uL (0.0-0.2); #Eosinphils 0.5 thou/uL (0.0-0.7); #Lymphocytes 1.4 thou/uL (1.20-3.40); #Monocytes 0.7 thou/uL (0.11-0.59); #Neutrophils 4.4 thou/uL (1.40-6.50); %Basophils 1.7 % (0.0-1.0); %Eosinophils 6.7 % (0.0-10.0); %Lymphocytes 19.4 % (21.0-51.0); %Monocytes 9.5 % (0.0-10.0); %Neutrophils 62.7 % (42.0-75.0); Mean Corpuscular HGB CONC 32.3 g/dL (32.0-36.0); Mean Corpuscular Hemoglobin 29.9 pg (27.0-31.0); Mean Corpuscular Volume 92.5 fL (78.0-98.0); Mean Platelet Volume 8.4 fL (7.4-10.4); Platelet Count 292 thou/uL (130-400); RBC Distribution Width 13.8 % (11.5-14.5); Red Blood Cell (RBC) Count 4.01 mill/uL (4.20-5.40); White Blood Cell (WBC) Count 6.9 thou/uL (4.8-10.8)
[2018-03-24 05:33] LABS: Anion Gap 12 mmol/L (10-20); BUN (Urea Nitrogen) 11 mg/dL (9.8-20.1); Calc. Creatinine Clearance 107 mL/min (70-130); Calcium 9.3 mg/dL (7.8-10.44); Carbon Dioxide 27 mmol/L (23-31); Chloride 109 mmol/L (98-107); Estimated GFR-MDRD 69; Glucose 109 mg/dL (83-110); Potassium 4.5 mmol/L (3.5-5.1); Sodium 143 mmol/L (136-145)
[2018-03-24] MEDS: Ciprofloxacin 500 MG TAB PO SCH ×2 (05:33→19:59)
[2018-03-24] MEDS: Enoxaparin Sodium 40 MG/0.4 ML SYRINGE SC SCH (08:55)
[2018-03-24] MEDS: Aspirin 325 MG TAB PO SCH (08:56)
[2018-03-24] MEDS: Acyclovir 200 mg Capsule PO SCH ×2 (08:56→19:59)
[2018-03-24] MEDS: Saccharomyces boulardii 250 MG CAP PO SCH (08:56)
[2018-03-24] MEDS: Loratadine 10 MG TAB PO SCH (08:57)
[2018-03-24] MEDS: Diltiazem HCl SR 60 mg Capsule PO SCH (08:57)
[2018-03-24] MEDS: Pregabalin 50 MG CAP PO SCH ×2 (08:58→20:00)
[2018-03-24] MEDS: Amoxicillin/Potassium Clav 875 MG TAB PO SCH ×2 (08:58→17:10)
[2018-03-24] MEDS: Donepezil HCl 10 MG TAB PO SCH (08:58)
[2018-03-24] MEDS: Potassium Chloride 10 MEQ TAB PO SCH (09:58)
--- NOTE | 2018-03-24 09:59 | PRG ---
DATE OF SERVICE: 03/24/2018 SUBJECTIVE: The patient has been doing very well with her therapy. Yesterday observed while PT nathanael dos santosd the wound VAC and her wound on her left foot looked much better. The two sutures were removed on the proximal and distal end of the incisions. The wound looks much better, it is smaller. There is excellent granulation filling in and the depth of the wound is less. There was no surrounding redne ss, no odor, no drainage. The wound was redressed with the wound VAC. The patient said that they ar e making preparations for her discharge tomorrow 03/25/2018. Home health will hand picker on her care an d do the wound VAC care. OBJECTIVE: The patient is sitting up in her bedside chair. She is alert, is in no distress. She lo oks very comfortable. Her temperature is 96.8, pulse 72, respirations 20, O2 sat 96% on room air, bl ood pressure 145/69. Lungs are clear. Heart, regular rate. Extremities; no edema. Lab shows an H&H of 12 and 37.1, WBC count 6900 with 63% segs, 19% lymphocytes, platelet count of 292 ,000. Sodium 143, potassium 4.5, BUN 11, creatinine 0.81, GFR 69, glucose 109, hemoglobin A1c is 5.7 , done on 03/19/2018, C-reactive protein pending. ASSESSMENT: 1. Generalized weakness and deconditioning. A. Following recent amputation of the left first toe and partial resection of the metatarsal for ost eomyelitis. B. Improved, transferring easier and walking longer distances with the use of a walker as of 018. 2. Osteomyelitis involving the left first metatarsal head and proximal phalanx. A. Status post amputation of the left great toe and partial amputation of the metacarpal and debride ment of an abscess of the left foot on 03/11/[address] Paramjit Mcintosh, AKILAH. B. Cultures grew Pseudomonas aeruginosa and Enterococcus species. C. Initial management with Zosyn was stopped on the evening of 03/20/2018. The patient was switched to Cipro and Augmentin orally for a 4-week period as of the evening of 03/20/2018. D. Wound management with a wound VAC that was initiated on 03/16/2018. 1. Continued improvement as of 03/24/2018. 3. Hospitalized at [facility] from 03/09/2018 until 03/15/2018 for osteomyelitis of the p roximal phalanx of the left great toe and the metatarsal head. 4. Paroxysmal atrial fibrillation. A. Rate controlled. 5. History of pulmonary embolism from the left leg deep vein thrombosis 2011. A. Recurrence of the deep venous thrombosis of the lower extremity requiring inferior vena caval serafin ter placement in 2014. 6. Peripheral neuropathy of the lower extremities. 7. Spondylosis of the lumbosacral spine. 8. Chronic pain secondary to peripheral neuropathy of the extremities and generalized osteoarthritis . A. Controlled as of 03/24/2018. 9. Gastroesophageal reflux disease. 10. Insomnia. 11. Obesity. 12. Herpes simplex, intermittent. 13. Vitamin D deficiency. 14. Alzheimer's disease. 15. Mild hypokalemia. A. Resolved as of 03/24/2018. PLAN: Continue present care. Continue PT. Will stop the potassium supplementation. The patient is anticipating discharge tomorrow. Home health has been contacted and will hand picker on her wound VAC c are in the home.
[2018-03-24 12:46] LABS: CRP (Inflammatory) 1.18 mg/dL (= or < 0.5)
[2018-03-24] MEDS ORDERED: Bismuth Subs 17.5mg/mL Susp 120 ML BOT PO PRN ×4 (14:16→15:39)
[2018-03-24] MEDS: traMADol HCl 50 MG TAB PO SCH (19:59)
[2018-03-24] MEDS: Fluticasone Propionate Nasal Spray 16 gm Bottle NASAL SCH (20:00)
[2018-03-24] MEDS: Melatonin 3 MG TAB PO SCH (20:00)
[2018-03-25] MEDS: Ciprofloxacin 500 MG TAB PO SCH (05:42)
[2018-03-25 07:28] VITALS: BP 132/61; TEMP 97.8
[2018-03-25] MEDS: Diltiazem HCl SR 60 mg Capsule PO SCH (08:43)
[2018-03-25] MEDS: Enoxaparin Sodium 40 MG/0.4 ML SYRINGE SC SCH (08:43)
[2018-03-25] MEDS: Donepezil HCl 10 MG TAB PO SCH (08:44)
[2018-03-25] MEDS: Saccharomyces boulardii 250 MG CAP PO SCH (08:44)
[2018-03-25] MEDS: Loratadine 10 MG TAB PO SCH (08:44)
[2018-03-25] MEDS: Aspirin 325 MG TAB PO SCH (08:44)
[2018-03-25] MEDS: Amoxicillin/Potassium Clav 875 MG TAB PO SCH (08:45)
[2018-03-25] MEDS: Pregabalin 50 MG CAP PO SCH (08:45)
[2018-03-25] MEDS: Acyclovir 200 mg Capsule PO SCH (08:45)
[2018-03-25] MEDS ORDERED: AMOXicillin 250 MG CAP PO SCH (15:00)
--- NOTE | 2018-03-28 08:38 | DIS ---
DATE OF ADMISSION: 03/15/2018 DATE OF DISCHARGE: 03/25/2018 The patient was admitted to [facility] on 03/15/2018 and discharged on 03/25/2018 . FINAL DIAGNOSES: 1. Generalized weakness and deconditioning. A. Following recent amputation of the left first toe and partial resection of the metatarsal for ost eomyelitis. B. Improved as of 03/25/2018. Walking from 100-200 feet with a rolling walker. Transferring was [facility]. 2. Osteomyelitis involving the left first metatarsal head and proximal phalanx. A. Status post amputation of the left great toe and partial amputation of the metacarpal and debride ment of an abscess of the left foot on 03/11/[address] Paramjit Mcintosh, AKILAH. B. Cultures grew Pseudomonas aeruginosa and Enterococcus species. C. Initial management with Zosyn was stopped on the evening of 03/20/2018. The patient was switched to Cipro and Augmentin orally for a 4-week period as of the evening of 03/20/2018. D. Wound management with a wound VAC that was initiated on 03/16/2018. 1. Continued improvement with excellent granulation tissue formation as of 03/25/2018. 3. Hospitalized at [facility] from 03/09/2018 until 03/15/2018 for osteomyelitis of the p roximal phalanx of the left great toe and the metatarsal head. 4. Paroxysmal atrial fibrillation. A. Rate controlled. 5. History of pulmonary embolism from the left leg deep vein thrombosis 2011. A. Recurrence of the deep venous thrombosis of the lower extremity requiring inferior vena caval serafin ter placement in 2014. 6. Peripheral neuropathy of the lower extremities. 7. Spondylosis of the lumbosacral spine. 8. Chronic pain secondary to peripheral neuropathy of the extremities and generalized osteoarthritis . A. Controlled as of 03/24/2018. 9. Gastroesophageal reflux disease. 10. Insomnia. 11. Obesity. 12. Herpes simplex, intermittent. 13. Vitamin D deficiency. 14. Alzheimer's disease. 15. Mild hypokalemia. A. Resolved as of 03/24/2018. 16. Diarrhea. A. Suspect secondary to the antibiotic, Augmentin. SUMMARY: The patient is a 77-year-old white female who has a history of hypertension, paroxysmal atr ial fibrillation, pulmonary embolism from a deep vein thrombosis in 2011 for which she underwent an i nferior vena caval filtration placement. She has a history of Alzheimer's dementia. She is ordinari ly independent of all her ADLs. She lives at home with her , has her family that is there to assist her for all her instrumental ADLs. The patient had bunion formations on her feet and as a res ult had developed a chronic ulcer over the bunion on the left foot involving the first MP joint. Thi s gradually had eroded into the bone and she had developed an osteomyelitis. She was hospitalized at [facility] from 03/09/2018 until 03/15/2018. There, Dr. Mcintosh, her Podiatr y performed an amputation of left great toe and partial amputation of the first metatarsal distally w ith debridement of the abscess. Wound was left open with healing by secondary intention. Initially, they used wet to dry dressing and have switched her to a wound VAC. The wound grew Pseudomonas aeru ginosa and Enterococcus. These bacteria were sensitive to the Zosyn that she was receiving IV, also sensitive to amoxicillin, Augmentin and Cipro. The Infectious Disease mgmt consultant, Dr. Sorto had trevon mmended continuation of the Zosyn for a little longer and then switching her to Cipro and Augmentin f or a 4-week period. The patient underwent an arterial Doppler of the left lower leg that showed no e vidence of any arterial occlusion. She was referred to [facility] extended care for PT for str engthening exercise, gait training, conditioning exercise and also for wound care with the wound VAC. HOSPITAL COURSE: The patient made excellent progress with her physical therapy, had gone essentially just bed and chair rest to where she was walking 100-200 feet with a rolling walker, was able to tra nsfer independently with just standby assistance. Her wound over her left foot showed great improvem ent. The depth to the wound looked much smaller. There was excellent development of granulation tis mary carmen in the wound bed. She had a simple suture applied in the proximal and distal extent of the incis ion that were removed. The wound was the wound VAC on Wednesday, Wednesday and Wednesday. The patie nt was left on the Zosyn until 03/19/2018. Her IV had infiltrated and it had already been restarted on one occasion with difficulty. It was left out since the wound was doing very well and she was sta rted on Augmentin and Cipro. The patient later developed some very loose watery bowel movements that did not have any appearance or odor of C. diff. It is felt this may be related to the supplements s he was receiving, that is, the Zion and the Ensure. Both of these were stopped. She still had the diarrhea. It was felt that this may be related to the Augmentin. In review of the cultures from the foot, the Enterococcus was sensitive also to the amoxicillin and the Augmentin. Since the Augmentin is frequently the cause of upset stomach and diarrhea, we will try switching her to amoxicillin and see if this will help. This should give adequate coverage to the organism. The patient also had sto ol specimens ordered to be collected on the morning of the day of her discharge to ensure there was n ot a pathogen. Stools for C and S were ordered, stools for lactoferrin and stools for C. diff. Thes e hopefully will be collected prior to her discharge. If not, then this will be collected as an outp atient. The patient markedly improved and wanted to go home. The family felt that they could adequa tely take care of her there. Her son and [id number] live very close and are there to assist as needed and arrangements have been made for [facility] to come out and do the wound VAC care and the wound VAC reapplied on the day of her discharge, 03/25/2018. Home health will also continue with PT and OT. The patient was discharged in good condition on 03/25/2018. DISPOSITION: Regular diet. Activities, ambulate with the use of a walker. Wound care, [facility] will continue the wound VAC care to her left foot 3 days a week on Wednesday, Wednesday and Wed. The patient had been set up and has the equipment that she will need. Followup, the patient du e to be seen by her promotional model, Dr. Mcintosh on 03/28/2018. MEDICATIONS: Acetaminophen 325 mg 2 every 6 hours as needed; acyclovir 400 mg b.i.d.; amoxicillin 50 0 mg t.i.d. until 04/17/2018; aspirin 325 mg daily; vitamin D3 4000 units daily; Cipro 500 mg b.i.d. until 04/17/2018, that is, 23 more days; diltiazem SR 120 mg daily; donepezil 5 mg daily; fluticasone 2 sprays in each nostrum at bedtime; loratadine 10 mg daily; melatonin 10 mg at bedtime; Namenda 5 m g daily; pantoprazole 40 mg daily; Lyrica 50 mg b.i.d.; Florastor 250 mg daily and tramadol 50 mg at bedtime. FOLLOWUP: The patient will be seen in followup by myself in 2 weeks with a CBC, basic metabolic pane l, sed rate and CRP. The patient will follow up with Dr. Mcintosh, her promotional model on 03/28/2018 . CODE STATUS: Full code.
== END 2018-03-25 11:45 | disposition home health service (06) | DRG 540 ==
LOC: MADMS 18:49
PROVIDERS: ADMIT Family Medicine; ATTEND Family Medicine
DX: M86.8X7 Other osteomyelitis, ankle and foot (principal); K52.1 Toxic gastroenteritis and colitis; R53.1 Weakness; Z51.89 Encounter for other specified aftercare; I10 Essential (primary) hypertension; I48.0 Paroxysmal atrial fibrillation; Z86.711 Personal history of pulmonary embolism; Z86.718 Personal history of other venous thrombosis and embolism; G30.9 Alzheimer's disease, unspecified; F02.80 Dementia in other diseases classified elsewhere, unspecified severity, without behavioral disturbance, psychotic disturbance, mood disturbance, and anxiety; L97.529 Non-pressure chronic ulcer of other part of left foot with unspecified severity; Z89.412 Acquired absence of left great toe; M15.9 Polyosteoarthritis, unspecified; Z96.652 Presence of left artificial knee joint; K21.9 Gastro-esophageal reflux disease without esophagitis; B00.9 Herpesviral infection, unspecified; E66.9 Obesity, unspecified; G62.9 Polyneuropathy, unspecified; M47.897 Other spondylosis, lumbosacral region; G89.29 Other chronic pain; G47.00 Insomnia, unspecified; E55.9 Vitamin D deficiency, unspecified; E87.6 Hypokalemia; T36.95XA Adverse effect of unspecified systemic antibiotic, initial encounter; Z68.38 Body mass index [BMI] 38.0-38.9, adult
CPT/HCPCS: 36415; 36416; 80048; 80053; 83036; 85025; 85652; 86140; G8987-GO-CL; G8988-GO-CI; J1650; J2543; J7050

== ENCOUNTER 2018-04-09 08:15 | Outpatient (CLI) | payer MEDICARE ==
[2018-04-09 08:25] LABS: #Basophils 0.2 thou/uL (0.0-0.2); #Eosinphils 0.3 thou/uL (0.0-0.7); #Lymphocytes 1.3 thou/uL (1.20-3.40); #Monocytes 0.7 thou/uL (0.11-0.59); %Basophils 2.4 % (0.0-1.0); %Eosinophils 4.5 % (0.0-10.0); %Lymphocytes 17.1 % (21.0-51.0); %Monocytes 9.1 % (0.0-10.0); Mean Corpuscular HGB CONC 29.8 g/dL (32.0-36.0); Mean Corpuscular Volume 97.3 fL (78.0-98.0); Mean Platelet Volume 6.8 fL (7.4-10.4); Platelet Count 204 thou/uL (130-400); RBC Distribution Width 15.3 % (11.5-14.5); Red Blood Cell (RBC) Count 4.48 mill/uL (4.20-5.40); White Blood Cell (WBC) Count 7.5 thou/uL (4.8-10.8)
[2018-04-09 08:36] LABS: Anion Gap 22 mmol/L (10-20); BUN (Urea Nitrogen) 10 mg/dL (9.8-20.1); Calc. Creatinine Clearance 0 mL/min (70-130); Calcium 9.1 mg/dL (7.8-10.44); Carbon Dioxide 24 mmol/L (23-31); Chloride 105 mmol/L (98-107); Estimated GFR-MDRD 71; Potassium 4.3 mmol/L (3.5-5.1); Sodium 147 mmol/L (136-145)
[2018-04-09 11:14] LABS: Glucose 39 mg/dL (83-110)
[2018-04-09 15:02] LABS: ALT (SGPT) 21 U/L (8-55); AST (SGOT) 36 U/L (5-34); Albumin 3.4 g/dL (3.4-4.8); Alkaline Phosphatase 108 U/L (40-150); Anion Gap 13 mmol/L (10-20); BUN (Urea Nitrogen) 9 mg/dL (9.8-20.1); Bilirubin, Total 0.6 mg/dL (0.2-1.2); Calc. Creatinine Clearance 0 mL/min (70-130); Calcium 9.2 mg/dL (7.8-10.44); Carbon Dioxide 27 mmol/L (23-31); Chloride 107 mmol/L (98-107); Estimated GFR-MDRD 70; Globulin 2.8 g/dL (2.4-3.5); Glucose 121 mg/dL (83-110); Potassium 4.2 mmol/L (3.5-5.1); Protein, Total 6.2 g/dL (6.0-8.3); Sodium 143 mmol/L (136-145)
[2018-04-09 15:28] LABS: CRP (Inflammatory) 1.35 mg/dL (= or < 0.5)
[2018-04-12 18:11] LABS: Neutral Fats And/Or Soaps Normal (.)
== END 2018-04-09 08:16 | disposition home or self-care (01) ==
LOC: MADLAB 08:15
PROVIDERS: ATTEND Emergency Medicine Emergency Medical Services
DX: R19.7 Diarrhea, unspecified (principal); I48.0 Paroxysmal atrial fibrillation; I10 Essential (primary) hypertension; Z79.2 Long term (current) use of antibiotics
CPT/HCPCS: 80048; 80053; 82705; 85025; 85652; 86140; 87045; 87046; 87324; 87449; 87899

== ENCOUNTER 2018-12-23 11:04 | Emergency (ER) | payer MEDICARE ==
[2018-12-23 12:03] LABS: #Basophils 0.1 thou/uL (0.0-0.2); #Eosinphils 0.2 thou/uL (0.0-0.7); #Lymphocytes 0.9 thou/uL (1.20-3.40); #Monocytes 0.8 thou/uL (0.11-0.59); #Neutrophils 7.4 thou/uL (1.40-6.50); %Basophils 0.9 % (0.0-1.0); %Eosinophils 1.7 % (0.0-10.0); %Lymphocytes 9.8 % (21.0-51.0); %Monocytes 8.6 % (0.0-10.0); Hemoglobin 12.1 g/dL (12.0-16.0); Mean Corpuscular HGB CONC 30.6 g/dL (32.0-36.0); Mean Corpuscular Hemoglobin 27.2 pg (27.0-31.0); Mean Platelet Volume 9.4 fL (7.4-10.4); Platelet Count 155 thou/uL (130-400); RBC Distribution Width 16.5 % (11.5-14.5); Red Blood Cell (RBC) Count 4.43 mill/uL (4.20-5.40); White Blood Cell (WBC) Count 9.4 thou/uL (4.8-10.8)
[2018-12-23] MEDS ORDERED: cefTRIAXone\\ROCEPHIN 1 GM VIAL ONE (12:05)
[2018-12-23 12:16] LABS: Anion Gap 14 mmol/L (10-20); BUN (Urea Nitrogen) 20 mg/dL (9.8-20.1); Calc. Creatinine Clearance 0 mL/min (70-130); Calcium 9.1 mg/dL (7.8-10.44); Carbon Dioxide 24 mmol/L (23-31); Chloride 109 mmol/L (98-107); Estimated GFR-MDRD 49; Glucose 107 mg/dL (83-110); Sodium 143 mmol/L (136-145)
[2018-12-23] MEDS ORDERED: Sodium Chloride 0.9% 250 ML 250 ML ONE (13:01)
--- NOTE | 2018-12-23 13:24 | RAD ---
RIGHT FOOT 3 VIEWS: Date: 12/23/18 HISTORY: Wound infection. Redness and cellulitis. FINDINGS: Degenerative changes in the intertarsal joints and at the tarsometatarsal joints. Degenerative changes at the MTP joints. There are erosive changes involving the head of the fifth metatarsal which could represent changes of osteomyelitis. There is soft tissue swelling at this site. Soft tissue swelling is seen dorsally involving the midfoot and forefoot. IMPRESSION: Osteopenia and degenerative changes of the foot as described. Erosive changes involving the lateral a spect of the distal fifth metatarsal could represent changes of osteomyelitis. Diffuse soft tissue sw elling in the midfoot and forefoot. POS: [facility]
== END 2018-12-23 14:28 | disposition short-term general hospital (02) ==
LOC: MADERS 11:04
DX: M86.9 Osteomyelitis, unspecified (principal); I48.91 Unspecified atrial fibrillation; I49.9 Cardiac arrhythmia, unspecified; K21.9 Gastro-esophageal reflux disease without esophagitis; F03.90 Unspecified dementia, unspecified severity, without behavioral disturbance, psychotic disturbance, mood disturbance, and anxiety; Z79.899 Other long term (current) drug therapy; Z79.82 Long term (current) use of aspirin
CPT/HCPCS: 80048; 85025; 87040; 96365; 96375; J0696; J3370; J7050

== ENCOUNTER 2018-12-28 13:16 | Inpatient (IN) | payer MEDICARE ==
[2018-12-30] MEDS ORDERED: traMADol HCl 50 MG TAB PO PRN (18:12)
[2018-12-30] MEDS: AMOXicillin 250 MG CAP PO SCH (22:50)
[2018-12-31 05:08] LABS: #Basophils 0.1 thou/uL (0.0-0.2); #Eosinphils 0.4 thou/uL (0.0-0.7); #Lymphocytes 0.8 thou/uL (1.20-3.40); #Monocytes 0.7 thou/uL (0.11-0.59); #Neutrophils 6.7 thou/uL (1.40-6.50); %Basophils 1.2 % (0.0-1.0); %Eosinophils 4.5 % (0.0-10.0); %Lymphocytes 8.7 % (21.0-51.0); %Monocytes 7.6 % (0.0-10.0); %Neutrophils 77.9 % (42.0-75.0); Hemoglobin 11.3 g/dL (12.0-16.0); Mean Corpuscular HGB CONC 32.6 g/dL (32.0-36.0); Mean Corpuscular Hemoglobin 28.2 pg (27.0-31.0); Mean Corpuscular Volume 86.3 fL (78.0-98.0); Mean Platelet Volume 8.4 fL (7.4-10.4); Platelet Count 151 thou/uL (130-400); RBC Distribution Width 15.4 % (11.5-14.5); Red Blood Cell (RBC) Count 4.02 mill/uL (4.20-5.40); White Blood Cell (WBC) Count 8.6 thou/uL (4.8-10.8)
[2018-12-31 05:22] LABS: ALT (SGPT) 25 U/L (8-55); AST (SGOT) 25 U/L (5-34); Albumin 3.3 g/dL (3.4-4.8); Alkaline Phosphatase 94 U/L (40-150); Anion Gap 15 mmol/L (10-20); BUN (Urea Nitrogen) 30 mg/dL (9.8-20.1); Bilirubin, Total 0.4 mg/dL (0.2-1.2); Calc. Creatinine Clearance 40 mL/min (70-130); Carbon Dioxide 24 mmol/L (23-31); Chloride 112 mmol/L (98-107); Estimated GFR-MDRD 23; Globulin 2.8 g/dL (2.4-3.5); Glucose 117 mg/dL (83-110); Potassium 3.5 mmol/L (3.5-5.1); Protein, Total 6.1 g/dL (6.0-8.3); Sodium 147 mmol/L (136-145)
[2018-12-31] MEDS: AMOXicillin 250 MG CAP PO SCH ×2 (08:26→20:10)
[2018-12-31] MEDS: Donepezil HCl 10 MG TAB PO SCH (08:26)
[2018-12-31] MEDS: Aspirin 325 MG TAB PO SCH (08:26)
[2018-12-31] MEDS: Fluconazole 100 MG TAB PO SCH ×2 (08:32→08:33)
[2018-12-31] MEDS: Acetaminophen 325 MG TAB PO PRN (20:10)
[2019-01-01] MEDS: Aspirin 325 MG TAB PO SCH (08:29)
[2019-01-01] MEDS: AMOXicillin 250 MG CAP PO SCH ×2 (08:30→20:54)
[2019-01-01] MEDS: Donepezil HCl 10 MG TAB PO SCH (08:30)
[2019-01-01] MEDS: Fluconazole 100 MG TAB PO SCH (08:30)
[2019-01-01] MEDS ORDERED: Hydrocerin (Eucerin) Cream 120 gm Jar TOP PRN (13:30)
[2019-01-01] MEDS ORDERED: EUCERIN CREME 57 GRAM TUBE TP PRN (18:02)
[2019-01-01] MEDS: EUCERIN CREME 57 GRAM TUBE TP SCH (20:53)
[2019-01-01] MEDS: Acetaminophen 325 MG TAB PO PRN (20:54)
[2019-01-01] MEDS: Acyclovir 200 mg Capsule PO SCH (20:54)
[2019-01-01] MEDS ORDERED: Hydrocerin (Eucerin) Cream 120 gm Jar TOP SCH (21:00)
--- NOTE | 2019-01-02 07:53 | PRG ---
DATE OF SERVICE: 12/31/2018 SUBJECTIVE: Last night, the patient became much more alert and interactive and was talking to the nurses and trying to crawl out of bed with nurses are able to gradually comfort her and settle her down. Apparently, she had an uneventful night. This morning, she has been awake and talkative and very calm and has eaten breakfast. Her son, Gab, and [id number], Rosa are with her. Apparently, these episodes where she becomes just virtually unresponsive with her eyes open and not talking and not moving are interspersed with episodes where she is alert and will carry on conversation. This morning though, she seems to be markedly improved. OBJECTIVE: GENERAL: The patient is lying in bed with the head elevated about 45 degrees. She is alert, talkative, had no complaint. She said nothing is hurting her. She seems very calm. VITAL SIGNS: Show a temperature of 96.3, pulse 84, respirations 16, O2 saturation 93% on room air, blood pressure 180/81. LUNGS: Clear. HEART: Regular rate. EXTREMITIES: The amputation site of fifth toe with ulcer removed from the metatarsal head and is being changed by physical therapy. The wound looks excellent. It is very clean and red tissue. There is no surrounding redness. No odor. This is being cleaned and then repacked using the VAC system. LABORATORY DATA: Her lab shows an H and H of 11.3 and 34.7, white cell count 8600 with 78% segs, 9% lymphocytes, and a platelet count of 151,000. Sodium 147, potassium 3.5, BUN is 30, creatinine down to 2.08, glucose 117. ASSESSMENT: 1. Generalized weakness and deconditioning. 2. Osteomyelitis of the right fifth toe and metatarsal head. a. Status post amputation of the toe and the head of the fifth metatarsal on 12/27/[address] Paramjit Mcintosh, service coordinator. b. Healing by secondary intention with the aid of a wound VAC. c. On amoxicillin, Diflucan for 2 weeks. d. Wound very clean as of 12/31/2018. 3. Osteomyelitis of the left great toe and metatarsal head requiring: a. Status post amputation of the left great toe and metatarsal head on 03/11. b. Healing by secondary intention. c. Wound of superficial and down to 1.5 cm in diameter and clean as of 12/31. 4. Alzheimer dementia. a. Complicated by episodes of apathy and minimal responsiveness. b. Marked improvement where she is alert and interactive and in no distress as of the morning of 12/31/2018. 5. Hypertension. 6. Chronic renal disease. a. Creatinine down to 2.08 and GFR 23 as of 12/31/2018. PLAN: Continue present care. Continue wound care. Continue PT. Continue supportive care. We will continue the amoxicillin and Diflucan for 2 weeks. We will continue to monitor renal function. Job ID: [id number] [facility]
--- NOTE | 2019-01-02 08:16 | HP ---
CHIEF COMPLAINT: Generalized weakness and deconditioning following amputation of her right 5th toe and part of the metatarsal. HISTORY OF PRESENT ILLNESS: The patient is a 78-year-old white female, who has a history of hypertension, paroxysmal atrial fibrillation, pulmonary embolism from a DVT in 2011, for which she underwent an inferior vena cava filtration device. She also has had history of Alzheimer dementia that has been progressive. She has had a sore that developed initially on her left great toe that developed into an osteomyelitis and required an amputation of the left great toe and metatarsal head in 02/2018, post op this was managed with a wound VAC and is gradually healing and has diminished to about a cm in diameter. She recently developed redness, swelling, and drainage from her right 5th toe for which she was hospitalized at [facility] from 12/23/2018 until 12/30/2018. During this admission, she was initially treated with IV antibiotics including vancomycin. X-rays suggested osteomyelitis of the right 5th toe and metatarsal head. MRI was confirmatory. On 12/27/2018, her radio communications mechanician, Dr. Paramjit Mcintosh did an amputation of the right 5th toe along with resection of the portion of the distal metatarsal. The wound has been left open in order to heal by secondary intention and a wound VAC has being utilized to assist with this healing. At home, the patient lives with her who assists her with her care along with family that lives close that also assist her. She ambulates usually with a walker, is usually able to eat. With her Alzheimer's, she frequently has episodes where she is very confused and very quite and says very little. According to the nurses who were visiting with our nursing staff during her stay at [facility], she would have periods where she was basically unresponsive , nonverbal and weak and would not move any of the extremities. Later, she would be more mentally alert and was able to sit up in a chair with two-people assist and ambulate short distance with a walker with two-people assist. Her speech was usually very difficult to understand and often times she would not speak at all and when she did speak, it made a little sense. She had generalized weakness, but no focal weakness. Apparently, this has been her baseline. She was referred to [facility] for efforts at physical therapy and occupational therapy in the hopes to improve her general functional capability and also for wound care of the recent amputation of the right 5th toe and continued care of the amputation site of the left great toe. The patient was seen and examined soon after her admission. The patient was lying in bed with the head elevated. The nurse said that she would accept some pudding that she was given her and drink some fluids. Her eyes were open, but she would not move any of the extremities or talk. She did not appear in any distress. The patient could not give any history of what had happened. Her chart from [facility] was reviewed and my chart in recent hospitalization had been reviewed. PAST MEDICAL HISTORY: Hospitalized at [facility] from 12/23/2018 until 12/30/2018 for osteomyelitis of the right 5th toe and metatarsal head for which she underwent an amputation of the right 5th toe and metatarsal head. The wound healing by secondary intention. During this admission, she had problems with acute kidney injury that may be related to the vancomycin. Her creatinine subha from admission of 1.08 on 12/23 to a high of 2.7 on 12/28 and dropped to 2.14 on 12/30. The patient was hospitalized at [facility] on 03/11/2018 to 03/15/2018 for amputation of the left great toe and resection of the metatarsal head secondary to the osteomyelitis by Dr. Paramjit Mcintosh. The patient then was managed at [facility] from 03/15 to 03/25. The patient has paroxysmal atrial fibrillation with rates controlled. She had a pulmonary embolism from the left leg DVT, 2011. She had a recurrence of the deep vein thrombosis of the lower extremity for which she received an inferior vena caval filtration device in 2014. She has a peripheral neuropathy of the lower extremities, spondylosis of the lumbar spine, chronic pain from the peripheral neuropathy, gastroesophageal reflux disease, obesity, insomnia, intermittent herpes simplex, vitamin D deficiency, Alzheimer dementia, that has been progressive. The patient has also undergone a right rotator cuff repair in 2002 and also in 1998. She has had a stomach stapling in 1981 and removal of the stapling in 1984. She has had a VAN, hemorrhoidectomy, cholecystectomy. She had a left heart catheterization in 2013, which showed no significant coronary artery disease. She has venous insufficiency of the lower extremities. PRESENT MEDICINES: 1. Pepto-Bismol 30 mL t.i.d. p.r.n. 2. Atorvastatin 40 mg daily. 3. Acetaminophen 325 mg two every 4 hours as needed. 4. Tramadol 50 mg at bedtime. 5. Lyrica 50 mg in the morning, 75 mg in the evening. 6. Aspirin 325 mg daily. 7. Namenda 5 mg daily. 8. Donepezil 5 mg daily. 9. Omeprazole 20 mg at bedtime. 10. Diltiazem ER 120 mg daily. 11. Vitamin D3 4000 units daily. 12. Amoxicillin 500 mg b.i.d. ALLERGIES: MORPHINE, CODEINE, AND MELOXICAM UPSETS HER STOMACH. MECLIZINE INCREASES VERTIGO SYMPTOMS. REVIEW OF SYSTEMS: The patient is not able to answer review of systems. HABITS: Alcohol, none. Tobacco, none. SOCIAL HISTORY: The patient had been living at home with her and family that lives close, assisting with her care. She ambulates with the use of a walker. Requires some assistance bathing and dressing, usually able to feed herself. CODE STATUS: Full code. PHYSICAL EXAMINATION: GENERAL: Shows a 78-year-old white female, who is lying in bed with the head elevated about 45 degrees. The nurses feeding her some pudding and she is taking sips of water. Her eyes are open, but she would not answer any question or really participate in her exam. She looks very weak, will not move any extremities. VITAL SIGNS: Show a temperature 97.1, her pulse is 69, respirations 18, O2 saturation 96% on room air, blood pressure is 194/88. HEENT: Head, normocephalic and atraumatic. Eyes, pupils are equal, round, and reactive. Sclerae are nonicteric. Ears, TMs are blocked by some cerumen. Nose is normal. Mouth and throat are normal. NECK: Carotids are equal and strong with no bruits. Thyroid is not enlarged. LUNGS: Clear. HEART: Regular rate. No murmurs. ABDOMEN: Soft. No organomegaly in the mid abdomen. There is a ventral hernia that is not incarcerated and nontender. The patient has a little bruising on the abdomen from Lovenox injections. LOWER EXTREMITIES: No edema. Left foot, the patient has a healing wound on the left foot from an amputation of the left great toe and metatarsal head. The wound is down to 1.5 cm in diameter. The red base is being dressed and covered with a Medihoney pad and Allevyn dressing. Her right foot, the patient has had an amputation of the right 5th toe and metatarsal head. The wound has a wound VAC and is covered. NEUROLOGIC: The patient eyes are open. She would not attempt to answer any questions or participate with any exam. She has severe generalized weakness and will not move any of the extremities. The extremities can be picked up and moved and she does not resist this movement. She would not respond to verbal or tactile stimulation. IMPRESSION: 1. Generalized weakness and deconditioning. a. Following amputation of her right 5th toe and metatarsal head on 2018. b. Requires assistance with all her ADLs. c. Ambulating with maximum assist, very short distance. 2. Advanced Alzheimer disease. a. Manifest with marked decline in her speech capabilities and very poor memory. b. Manifest with episodes where she becomes just very apathetic with eyes open, will not move any extremities and later will awake and help participate in her care and sitting in chair, walking. 3. Osteomyelitis of the right 5th toe and metatarsal head. a. Status post amputation of the right 5th toe and metatarsal head on 2018, surgeon Paramjit Mcintosh, radio communications mechanician. b. Wound will heal by secondary intention with the aid of a wound VAC. 4. Osteomyelitis involving the left 1st toe and metatarsal head. a. Status post amputation of the left great toe metatarsal head on 2017. b. Wound healing by secondary intention and down to approximately 1.5 cm in diameter and superficial. 5. Paroxysmal atrial fibrillation. 6. History of pulmonary embolism from deep vein thrombosis in the left leg, 2011. a. History of recurrence of the deep vein thrombosis in the lower extremity. b. Status post placement of an inferior vena cava filtration device in 2014. 7. Peripheral neuropathy of the lower extremity. 8. Spondylosis of the lumbar spine. 9. Ventral hernia, not incarcerated, asymptomatic. 10. Obesity. 11. Herpes simplex, intermittent. a. Presently asymptomatic. PLAN: The patient has been admitted to [facility]. She presently in a very apathetic state where her eyes are open, but she does not move any of extremities or attempts to talk, but will eat and drink fluid when given to her. Apparently, this waxes and wanes. We will stop her Lyrica in the event this is creating any lethargy. We will increase her donepezil to 10 mg daily. We will continue the wound care to the left foot with cleansing and application of a Medihoney pad and covering it an Allevyn every 2-3 days. Right foot wound will be dressed with a wound VAC and changed ever 3 days. We will utilize Tylenol for pain and we will utilize tramadol at nighttime if she needs it for any discomfort. We will gradually work her back up into a chair and have PT, OT evaluation. Code status, full. Job ID: [id number] [facility]
[2019-01-02] MEDS: Donepezil HCl 10 MG TAB PO SCH (08:19)
[2019-01-02] MEDS: AMOXicillin 250 MG CAP PO SCH ×2 (08:19→21:23)
[2019-01-02] MEDS: Acyclovir 200 mg Capsule PO SCH ×2 (08:19→21:23)
[2019-01-02] MEDS: Fluconazole 100 MG TAB PO SCH (08:19)
[2019-01-02] MEDS: Aspirin 325 MG TAB PO SCH (08:19)
[2019-01-02] MEDS: EUCERIN CREME 57 GRAM TUBE TP SCH ×2 (08:19→21:23)
[2019-01-02] MEDS ORDERED: Clotrimazole 1% Cream 15 GM TUBE TOP PRN (12:25)
--- NOTE | 2019-01-02 13:43 | PRG ---
DATE OF SERVICE: 01/02/2019 SUBJECTIVE: The patient is feeling a little better. She has not required any of the tramadol and she has not complained any more with her peripheral neuropathy since she has been off the Neurontin. There have not been any major behavioral issues. This morning, she is up in a Karolina chair, preparing for lunch. Physical Therapy is working with her. She is requiring moderate assistance with any transfers and is only walking 3 to 4 feet with a rolling walker and moderate assistance. She is due to have the wound VAC change on her right foot today. Nurses have found that she has had a little outbreak of the herpes simplex on her buttock that being cleaned, overlying dressing applied, and she has been started back on her acyclovir. OBJECTIVE: GENERAL: The patient is sitting up in a chair. She is alert, recognizes me and said she is okay and does not need anything. She is slow to speech and speaks in a very low tone, but she appears in no distress. VITAL SIGNS: Her temperature is 97, pulse 63, respirations 20, O2 saturation 97 % on room air, blood pressure was 190/88, earlier it has been down to 166/75. LUNGS: Clear. HEART: Regular rate. EXTREMITIES: No edema. Dressings are all intact. The wound VAC on the right foot is intact. On the lower skin just above the gluteal crease, there is a little small cluster of blisters and some red spots on the right and the left side. ASSESSMENT: 1. Generalized weakness and deconditioning. a. Improved. Walking 3 or 4 steps with rolling walker and assistance. Requiring moderate assistance with any transfers as 01/02/2019. 2. Osteomyelitis of the right fifth toe and metatarsal head. a. Status post amputation of the toe and the head of the fifth metatarsal on 12/27/[address] Paramjit Mcintosh, connie cleaner. b. Healing by secondary intention with the aid of a wound VAC. c. On amoxicillin, Diflucan for 2 weeks. d. Wound very clean as of 12/31/2018. 3. Osteomyelitis of the left great toe and metatarsal head requiring: a. Status post amputation of the left great toe and metatarsal head on 2017. b. Healing by secondary intention. c. Wound of superficial and down to 1.5 cm in diameter and clean as of 2018. 4. Alzheimer dementia. a. Complicated by episodes of apathy and minimal responsiveness. b. Marked improvement where she is alert and interactive and in no distress as of the morning of 12/31/2018. c. Controlled. 5. Hypertension. 6. Chronic renal disease. a. Creatinine down to 2.08 and GFR 23 as of 12/31/2018. 7. Peripheral neuropathy. a. Presently asymptomatic. 8. Spondylosis of the LS spine. 9. Herpes simplex, intermittent. a. Acute outbreak over the low back as of 01/01/2019. PLAN: The patient has been started back on the acyclovir. Continue PT/OT. Continue wound care to the feet. We will stop the tramadol since she has not required this. Continue the amoxicillin and fluconazole. The patient has little redness in the perineal area, for which she will be placed on clotrimazole cream. The Diflucan will also assists this. Job ID: [id number] [facility]
[2019-01-02] MEDS: Clotrimazole 1% Cream 15 GM TUBE TOP SCH (21:23)
[2019-01-03] MEDS: Aspirin 325 MG TAB PO SCH (08:54)
[2019-01-03] MEDS: Acyclovir 200 mg Capsule PO SCH ×2 (08:54→21:06)
[2019-01-03] MEDS: AMOXicillin 250 MG CAP PO SCH ×2 (08:54→21:06)
[2019-01-03] MEDS: Donepezil HCl 10 MG TAB PO SCH (08:55)
[2019-01-03] MEDS: Fluconazole 100 MG TAB PO SCH (08:55)
[2019-01-03] MEDS: Clotrimazole 1% Cream 15 GM TUBE TOP SCH ×2 (09:01→21:06)
[2019-01-03] MEDS: EUCERIN CREME 57 GRAM TUBE TP SCH ×2 (09:02→21:05)
[2019-01-03] MEDS ORDERED: Amlodipine 5 MG TAB PO SCH (10:45)
--- NOTE | 2019-01-03 12:17 | PRG ---
DATE OF SERVICE: 01/03/2019 SUBJECTIVE: The patient has been up and worked with physical therapy and walked just a few steps. Nurses said she is having a little trouble with her swallowing. The patient did not have any complaints. She did answer questions, but answers slowly in a low tone. OBJECTIVE: GENERAL: The patient is sitting up in a geriatric chair. She is alert, interactive, appears comfortable, in no distress. VITAL SIGNS: Her blood pressure was 179/89, pulse 64, temperature 97.9, respirations 16, and O2 saturation 98% on room air. LUNGS: Clear. HEART: Regular rate. EXTREMITIES: No edema. Dressings over both feet with a wound VAC over the right foot. ASSESSMENT: 1. Generalized weakness and deconditioning. a. Improved. Walking 3 or 4 steps with rolling walker and assistance. Requiring moderate assistance with any transfers as 01/03/2019. 2. Osteomyelitis of the right fifth toe and metatarsal head. a. Status post amputation of the toe and the head of the fifth metatarsal on 12/27/[address] Paramjit Mcintosh, food crops farm hand. b. Healing by secondary intention with the aid of a wound VAC. c. On amoxicillin, Diflucan for 2 weeks. d. Wound change every 3 days. Changed yesterday and wound clean as of 01/03. 3. Osteomyelitis of the left great toe and metatarsal head requiring: a. Status post amputation of the left great toe and metatarsal head on 03/11. b. Healing by secondary intention. c. Wound of superficial and down to 1.5 cm in diameter and clean as of 01/03. 4. Alzheimer dementia. a. Complicated by episodes of apathy and minimal responsiveness. b. Marked improvement where she is alert and interactive and in no distress as of the morning of 12/31/2018. c. Stable. Slow to respond to answers in low tone, but no more episodes of unresponsiveness as of 01/03/2019. 5. Hypertension. a. Not adequately controlled as of 01/03/2019. 6. Chronic renal disease. a. Creatinine down to 2.08 and GFR 23 as of 12/31/2018. 7. Peripheral neuropathy. a. Presently asymptomatic. 8. Spondylosis of the LS spine. 9. Herpes simplex, intermittent. a. Acute outbreak over the low back as of 01/01/2019. PLAN: We will start the patient on amlodipine 5 mg daily for blood pressure. Continue wound care. Continue the amoxicillin and the fluconazole. [facility] [id number] [facility]
[2019-01-03] MEDS: Acetaminophen 325 MG TAB PO PRN (21:06)
[2019-01-04 05:04] LABS: #Basophils 0.1 thou/uL (0.0-0.2); #Eosinphils 0.4 thou/uL (0.0-0.7); #Lymphocytes 1.2 thou/uL (1.20-3.40); #Monocytes 0.6 thou/uL (0.11-0.59); #Neutrophils 7.8 thou/uL (1.40-6.50); %Eosinophils 4.2 % (0.0-10.0); %Lymphocytes 12.2 % (21.0-51.0); %Monocytes 5.7 % (0.0-10.0); %Neutrophils 76.8 % (42.0-75.0); Hemoglobin 12.9 g/dL (12.0-16.0); Mean Corpuscular HGB CONC 32.1 g/dL (32.0-36.0); Mean Corpuscular Hemoglobin 27.5 pg (27.0-31.0); Mean Corpuscular Volume 85.8 fL (78.0-98.0); Platelet Count 208 thou/uL (130-400); RBC Distribution Width 15.4 % (11.5-14.5); Red Blood Cell (RBC) Count 4.69 mill/uL (4.20-5.40); White Blood Cell (WBC) Count 10.1 thou/uL (4.8-10.8)
[2019-01-04 05:20] LABS: Anion Gap 18 mmol/L (10-20); BUN (Urea Nitrogen) 25 mg/dL (9.8-20.1); Calc. Creatinine Clearance 50 mL/min (70-130); Carbon Dioxide 26 mmol/L (23-31); Chloride 109 mmol/L (98-107); Estimated GFR-MDRD 32; Glucose 128 mg/dL (83-110); Sodium 150 mmol/L (136-145)
[2019-01-04 05:34] LABS: Potassium 2.6 mmol/L (3.5-5.1)
[2019-01-04] MEDS: Aspirin 325 MG TAB PO SCH (08:35)
[2019-01-04] MEDS: Donepezil HCl 10 MG TAB PO SCH (08:35)
[2019-01-04] MEDS: Acyclovir 200 mg Capsule PO SCH ×2 (08:35→21:00)
[2019-01-04] MEDS: AMOXicillin 250 MG CAP PO SCH ×2 (08:35→21:00)
[2019-01-04] MEDS: Potassium Chloride 20 MEQ TAB PO SCH ×2 (08:35→21:00)
[2019-01-04] MEDS: EUCERIN CREME 57 GRAM TUBE TP SCH ×2 (08:36→21:00)
[2019-01-04] MEDS: Fluconazole 100 MG TAB PO SCH (08:36)
[2019-01-04] MEDS: Amlodipine 5 MG TAB PO SCH (08:36)
[2019-01-04] MEDS: Clotrimazole 1% Cream 15 GM TUBE TOP SCH ×2 (08:36→21:00)
--- NOTE | 2019-01-04 09:22 | PRG ---
DATE OF SERVICE: 01/04/2019 SUBJECTIVE: The patient said she is doing okay. She had no complaint. Speech therapy had seen yesterday because the nurses noticed that she was coughing a little bit after eating and drinking. Speech therapist has modified her diet to mechanical soft with added gravies. OBJECTIVE: GENERAL: The patient is lying in bed. She is alert, answers questions appropriately. Appears in no distress. VITAL SIGNS: Her vital signs shows a temperature of 97.5, pulse 92, respirations 16, O2 saturation 94% on room air, and blood pressure 180/74, last night was 147 /65 and 124/61. LUNGS: Clear. HEART: Regular rate. EXTREMITIES: Her right foot wound from the amputation of the first toe and metatarsal head is healing. The wound is now is 1.5 cm in diameter with a good red granulation base. No surrounding redness. The right foot has a wound VAC present. This was changed yesterday and reported the wound looked very clean. LABORATORY DATA: Her lab showed an H and H of 12.9 and 40.2 with a white cell count of 10,100 with 77% segs, 12% lymphocytes, and a platelet count of 208. Sodium is 150, potassium 2.6, her BUN is 25, creatinine down to 1.57, and glucose 128. ASSESSMENT: 1. Generalized weakness and deconditioning. a. Improved, walking some in her room with a rolling walker with assistance. Requiring moderate assistance with transfers as of 01/04/2019. 2. Osteomyelitis of the right fifth toe and metatarsal head. a. Status post amputation of the toe and the head of the fifth metatarsal on 12/27/[address] Paramjit Mcintosh, duct layer. b. Healing by secondary intention with the aid of a wound VAC. c. On amoxicillin, Diflucan for 2 weeks. d. Wound change every 3 days. Changed yesterday and wound clean as of 01/03. 3. Osteomyelitis of the left great toe and metatarsal head requiring: a. Status post amputation of the left great toe and metatarsal head on 03/11. b. Healing by secondary intention. c. Wound of superficial and down to 1.5 cm in diameter and clean as of 01/04. 4. Alzheimer dementia. a. Complicated by episodes of apathy and minimal responsiveness. b. Marked improvement where she is alert and interactive and in no distress as of the morning of 12/31/2018. c. Stable. Answers questions appropriately as of 01/04/2019. 5. Hypertension. a. Control improved as of 01/04/2019. 6. Chronic renal disease. a. Improved with creatinine down to 1.57 and GFR up to 32 as of 01/04/2019. 7. Peripheral neuropathy. a. Presently asymptomatic. 8. Spondylosis of the LS spine. 9. Herpes simplex, intermittent. a. Acute outbreak over the low back as of 01/01/2019. 10. Hypokalemia. a. Potassium 2.6 as of 01/04/2019. Started on potassium supplementation. 11. Hypernatremia. a. Sodium 150 as of 01/04/2019. PLAN: We will place the patient on potassium supplementation with 20 mEq b.i.d. The patient is not on any diuretics. We will encourage liquids. We will recheck electrolytes in the morning. [facility] ID: [id number] [facility]
[2019-01-04] MEDS: Acetaminophen 325 MG TAB PO PRN (21:01)
[2019-01-05 05:19] LABS: Anion Gap 18 mmol/L (10-20); BUN (Urea Nitrogen) 28 mg/dL (9.8-20.1); Calc. Creatinine Clearance 52 mL/min (70-130); Calcium 9.2 mg/dL (7.8-10.44); Carbon Dioxide 26 mmol/L (23-31); Chloride 108 mmol/L (98-107); Estimated GFR-MDRD 33; Glucose 123 mg/dL (83-110); Potassium 3.1 mmol/L (3.5-5.1); Sodium 149 mmol/L (136-145)
[2019-01-05] MEDS: Aspirin 325 MG TAB PO SCH (08:35)
[2019-01-05] MEDS: Acyclovir 200 mg Capsule PO SCH ×2 (08:35→20:30)
[2019-01-05] MEDS: AMOXicillin 250 MG CAP PO SCH ×2 (08:35→20:29)
[2019-01-05] MEDS: Amlodipine 5 MG TAB PO SCH (08:36)
[2019-01-05] MEDS: EUCERIN CREME 57 GRAM TUBE TP SCH ×2 (08:36→20:30)
[2019-01-05] MEDS: Fluconazole 100 MG TAB PO SCH (08:36)
[2019-01-05] MEDS: Donepezil HCl 10 MG TAB PO SCH (08:36)
[2019-01-05] MEDS: Clotrimazole 1% Cream 15 GM TUBE TOP SCH ×2 (08:36→20:30)
[2019-01-05] MEDS: Potassium Chloride 20 MEQ TAB PO SCH ×2 (08:37→20:29)
--- NOTE | 2019-01-05 09:12 | PRG ---
DATE OF SERVICE: 01/05/2019 SUBJECTIVE: The patient says she feels a little better today. She said she is not able to walk very far. Physical Therapy continues to work with her. Yesterday , she walked up 3 to 5 feet with a rolling walker and caregiver assistance and required moderate assistance with transfers, which is an improvement. OBJECTIVE: GENERAL: The patient is lying in bed. She is alert and answers to questions appropriately. Appears in no distress. VITAL SIGNS: Her temperature is 96.1, pulse 63, respirations 16, O2 saturation 99% on room air, and blood pressure 151/82. LUNGS: Clear. HEART: Regular rate. EXTREMITIES: There is no edema. The dressing is dry on the feet. There is a wound VAC on the right foot. LABORATORY DATA: Labs show sodium is down to 149, potassium is up to 3.1, BUN 28, and creatinine 1.5. FBS 123. ASSESSMENT: 1. Generalized weakness and deconditioning. a. Improved. Walking 3 to 5 feet with a rolling walker and caregiver assist , requiring moderate assistance with transfers as of 01/05/2019. 2. Osteomyelitis of the right fifth toe and metatarsal head. a. Status post amputation of the toe and the head of the fifth metatarsal on 12/27/[address] Paramjit Mcintosh, neurophysiologist. b. Healing by secondary intention with the aid of a wound VAC. c. On amoxicillin, Diflucan for 2 weeks. d. Wound change every 3 days. Changed yesterday and wound clean as of 01/03. 3. Osteomyelitis of the left great toe and metatarsal head requiring: a. Status post amputation of the left great toe and metatarsal head on 03/11. b. Healing by secondary intention. c. Wound of superficial and down to 1.5 cm in diameter and clean as of 01/04. 4. Alzheimer dementia. a. Complicated by episodes of apathy and minimal responsiveness. b. Marked improvement where she is alert and interactive and in no distress as of the morning of 12/31/2018. c. Stable. Answers questions appropriately as of 01/05/2019. 5. Hypertension. a. Control improved as of 01/04/2019. 6. Chronic renal disease. a. Improved with creatinine down to 1.57 and GFR up to 32 as of 01/04/2019. 7. Peripheral neuropathy. a. Presently asymptomatic. 8. Spondylosis of the LS spine. 9. Herpes simplex, intermittent. a. Acute outbreak over the low back as of 01/01/2019. 10. Hypokalemia. a. Potassium 2.6 as of 01/04/2019. Started on potassium supplementation. b. Improved with potassium of 3.1 as of 01/05/2019. 11. Hypernatremia. a. Sodium down from 150 to 149 as of 01/05/2019. PLAN: Continue present care. We will recheck electrolytes in the morning. Encourage liquids. Continue present wound care. [facility] [id number] [facility]
[2019-01-06 05:18] LABS: Anion Gap 17 mmol/L (10-20); BUN (Urea Nitrogen) 34 mg/dL (9.8-20.1); Calc. Creatinine Clearance 54 mL/min (70-130); Calcium 9.2 mg/dL (7.8-10.44); Carbon Dioxide 27 mmol/L (23-31); Chloride 108 mmol/L (98-107); Estimated GFR-MDRD 35; Glucose 121 mg/dL (83-110); Sodium 149 mmol/L (136-145)
[2019-01-06] MEDS: Amlodipine 5 MG TAB PO SCH (08:26)
[2019-01-06] MEDS: Potassium Chloride 20 MEQ TAB PO SCH ×3 (08:26→20:14)
[2019-01-06] MEDS: Fluconazole 100 MG TAB PO SCH (08:26)
[2019-01-06] MEDS: Aspirin 325 MG TAB PO SCH (08:26)
[2019-01-06] MEDS: AMOXicillin 250 MG CAP PO SCH ×2 (08:26→20:14)
[2019-01-06] MEDS: Acyclovir 200 mg Capsule PO SCH ×2 (08:27→20:14)
[2019-01-06] MEDS: Donepezil HCl 10 MG TAB PO SCH (08:27)
[2019-01-06] MEDS: Clotrimazole 1% Cream 15 GM TUBE TOP SCH ×2 (08:29→20:15)
[2019-01-06] MEDS: EUCERIN CREME 57 GRAM TUBE TP SCH ×2 (08:29→20:15)
--- NOTE | 2019-01-06 11:54 | PRG ---
DATE OF SERVICE: 01/06/2019 SUBJECTIVE: The patient said she is doing okay. She has not yet gotten up this morning, it's still early. Yesterday, Physical Therapy worked with her and she walked 5 feet with a 4-wheeled walker and minimal assistance, but needed moderate amount of assistance for transferring. OBJECTIVE: GENERAL: The patient is lying in bed, comfortable, answers questions appropriately, but with low volume and slowness. VITAL SIGNS: Her temperature is 97, pulse 75, respirations 16, O2 saturation 98 % on room air, blood pressure 134/60. LUNGS: Clear. HEART: Regular rate. EXTREMITIES: No edema. WOUNDS: Dressing and vac on right foot will be changed today by PT. The herpetic infection on the back, the areas are still raw, but are being cleaned and dressed daily. LABORATORY DATA: Shows sodium 149, potassium is 3.0, BUN 34, creatinine 1.44, GFR 35, glucose 121. ASSESSMENT: 1. Generalized weakness and deconditioning. a. Walking up to 5 feet with a rolling walker and minimal caregiver assist. Still requiring moderate amount of assistance for any transfer as of 2018. 2. Osteomyelitis of the right fifth toe and metatarsal head. a. Status post amputation of the toe and the head of the fifth metatarsal on 12/27/[address] Paramjit Mcintosh, product assembler. b. Healing by secondary intention with the aid of a wound VAC. c. On amoxicillin, Diflucan for 2 weeks. d. Wound change every 3 days. Changed yesterday and wound clean as of 01/03. 3. Osteomyelitis of the left great toe and metatarsal head requiring: a. Status post amputation of the left great toe and metatarsal head on 03/11. b. Healing by secondary intention. c. Wound of superficial and down to 1.5 cm in diameter and clean as of 01/04. 4. Alzheimer dementia. a. Complicated by episodes of apathy and minimal responsiveness. b. Marked improvement where she is alert and interactive and in no distress as of the morning of 12/31/2018. c. Stable. Answers questions appropriately as of 01/06/2019. 5. Hypertension. a. Control improved as of 01/04/2019. 6. Chronic renal disease. a. Improved with GFR up to 35 as of 01/06/2019. 7. Peripheral neuropathy. a. Presently asymptomatic. 8. Spondylosis of the LS spine. 9. Herpes simplex, intermittent. a. Acute outbreak over the low back as of 01/01/2019. 10. Hypokalemia. a. Potassium initially 2.6 on 01/04. With supplementation, up to 3.1 on . Now, 3.0 as of 01/06. 11. Hypernatremia. a. Sodium down from 150 to 149 as of 01/05/2019. b. Sodium stable at 149. PLAN: Continue to encourage liquids. We will increase patient's potassium to 3 times a day. Recheck electrolytes in the morning. Continue wound care to the feet. Continue wound care to the herpetic infection on her buttock and back. Job ID: [id number] [facility]
[2019-01-07 05:22] LABS: Anion Gap 15 mmol/L (10-20); BUN (Urea Nitrogen) 36 mg/dL (9.8-20.1); Calc. Creatinine Clearance 54 mL/min (70-130); Calcium 8.9 mg/dL (7.8-10.44); Carbon Dioxide 25 mmol/L (23-31); Chloride 108 mmol/L (98-107); Estimated GFR-MDRD 35; Glucose 120 mg/dL (83-110); Potassium 3.3 mmol/L (3.5-5.1); Sodium 145 mmol/L (136-145)
[2019-01-07] MEDS: Amlodipine 5 MG TAB PO SCH (09:04)
[2019-01-07] MEDS: Acyclovir 200 mg Capsule PO SCH ×2 (09:04→20:37)
[2019-01-07] MEDS: Aspirin 325 MG TAB PO SCH (09:05)
[2019-01-07] MEDS: Fluconazole 100 MG TAB PO SCH (09:05)
[2019-01-07] MEDS: AMOXicillin 250 MG CAP PO SCH ×2 (09:05→20:37)
[2019-01-07] MEDS: Donepezil HCl 10 MG TAB PO SCH (09:05)
[2019-01-07] MEDS: Clotrimazole 1% Cream 15 GM TUBE TOP SCH ×2 (09:06→20:37)
[2019-01-07] MEDS: Potassium Chloride 20 MEQ TAB PO SCH ×3 (09:06→20:37)
[2019-01-07] MEDS: EUCERIN CREME 57 GRAM TUBE TP SCH ×2 (09:06→20:38)
[2019-01-08] MEDS: Acyclovir 200 mg Capsule PO SCH ×2 (08:41→20:23)
[2019-01-08] MEDS: Aspirin 325 MG TAB PO SCH (08:42)
[2019-01-08] MEDS: Amlodipine 5 MG TAB PO SCH (08:42)
[2019-01-08] MEDS: AMOXicillin 250 MG CAP PO SCH ×2 (08:42→20:23)
[2019-01-08] MEDS: Donepezil HCl 10 MG TAB PO SCH (08:43)
[2019-01-08] MEDS: Potassium Chloride 20 MEQ TAB PO SCH ×3 (08:44→20:24)
[2019-01-08] MEDS: Clotrimazole 1% Cream 15 GM TUBE TOP SCH ×2 (08:47→20:24)
[2019-01-08] MEDS: EUCERIN CREME 57 GRAM TUBE TP SCH ×2 (08:47→20:24)
[2019-01-08] MEDS: Fluconazole 100 MG TAB PO SCH (08:48)
[2019-01-09 05:22] LABS: Anion Gap 15 mmol/L (10-20)
[2019-01-09 05:24] LABS: BUN (Urea Nitrogen) 36 mg/dL (9.8-20.1); Calc. Creatinine Clearance 61 mL/min (70-130); Calcium 9.2 mg/dL (7.8-10.44); Carbon Dioxide 24 mmol/L (23-31); Chloride 110 mmol/L (98-107); Estimated GFR-MDRD 40; Glucose 113 mg/dL (83-110); Potassium 4.5 mmol/L (3.5-5.1); Sodium 144 mmol/L (136-145)
[2019-01-09] MEDS ORDERED: Potassium Chloride 10 MEQ TAB PO SCH (08:30)
[2019-01-09] MEDS: Amlodipine 5 MG TAB PO SCH (08:51)
[2019-01-09] MEDS: Aspirin 325 MG TAB PO SCH (08:52)
[2019-01-09] MEDS: Clotrimazole 1% Cream 15 GM TUBE TOP SCH ×2 (08:52→20:27)
[2019-01-09] MEDS: Fluconazole 100 MG TAB PO SCH (08:52)
[2019-01-09] MEDS: AMOXicillin 250 MG CAP PO SCH ×2 (08:52→20:26)
[2019-01-09] MEDS: Donepezil HCl 10 MG TAB PO SCH (08:52)
[2019-01-09] MEDS: EUCERIN CREME 57 GRAM TUBE TP SCH ×2 (08:53→20:27)
--- NOTE | 2019-01-09 09:02 | PRG ---
DATE OF SERVICE: 01/07/2019 SUBJECTIVE: The patient said she is feeling good. Today, her and daughter are visiting. They said she looks much better. Her speech is much better, much more understandable, and family said she is eating good. OBJECTIVE: GENERAL: The patient is sitting up in a geriatric chair, is smiling and talking, appears very comfortable, and in no distress. VITAL SIGNS: Show a temperature of 97.4, pulse 72, blood pressure 154/67, respirations 18, O2 saturation 100% on room air. LUNGS: Clear. HEART: Regular rate. EXTREMITIES: No edema. LABORATORY DATA: Her lab shows a sodium of 144, potassium is up to 3.3, BUN is 36, creatinine 1.45, sodium down to 145, GFR stable at 35, and glucose 120. ASSESSMENT: 1. Generalized weakness and deconditioning. a. Walking up to 5 feet with a rolling walker and minimal caregiver assist. Still requiring moderate amount of assistance for any transfer as of 2018. 2. Osteomyelitis of the right fifth toe and metatarsal head. a. Status post amputation of the toe and the head of the fifth metatarsal on 12/27/[address] Paramjit Mcintosh, ceramics technician. b. Healing by secondary intention with the aid of a wound VAC. c. On amoxicillin, Diflucan for 2 weeks. d. Wound change every 3 days. Wound has been very clean as of 01/07/2019. 3. Osteomyelitis of the left great toe and metatarsal head requiring: a. Status post amputation of the left great toe and metatarsal head on 03/11. b. Healing by secondary intention. c. Wound is superficial, approximately 1.5 cm in diameter, very clean as of 01/07/2019. 4. Alzheimer dementia. a. Complicated by episodes of apathy and minimal responsiveness. b. continued improvement. Answers questions appropriately, approaching her baseline as of 01/07/2019. c. Stable. Answers questions appropriately as of 01/06/2019. 5. Hypertension. a. Control improved as of 01/04/2019. 6. Chronic renal disease. a. Improved with GFR up to 35 as of 01/06/2019. 7. Peripheral neuropathy. a. Presently asymptomatic. 8. Spondylosis of the LS spine. 9. Herpes simplex, intermittent. a. Acute outbreak over the low back as of 01/01/2019. 10. Hypokalemia. a. Improved. Potassium up to 3.3 as of 01/07/2019. 11. Hypernatremia. a. Sodium down from 150 to 149 as of 01/05/2019. b. Sodium stable at 149. c. Resolved with sodium of 145. PLAN: Continue present care. Continue PT/OT. Continue present wound care. We will recheck electrolytes on Wednesday, 01/09. [facility] [id number] [facility]
--- NOTE | 2019-01-09 13:42 | PRG ---
DATE OF SERVICE: 01/09/2019 SUBJECTIVE: The patient had no complaint. The patient should be getting a wound VAC changed out today on the right foot. The dressing on the left foot changed. Nurses report no new problems. OBJECTIVE: GENERAL: The patient is lying in bed, alert, and answers questions appropriately. She appears in no distress. VITAL SIGNS: Her vital signs shows a temperature 97.6, pulse 63, respirations 18 , O2 saturation 99% on room air, and blood pressure 140/66. LUNGS: Clear. HEART: Regular rate. EXTREMITIES: No edema. Dressings in the feet are dry. ASSESSMENT: 1. Generalized weakness and deconditioning. a. Walking a little further with a rolling walker with minimal caregiver assist. Still requiring moderate assistance for any transfers as of 01/09/2019. 2. Osteomyelitis of the right fifth toe and metatarsal head. a. Status post amputation of the toe and the head of the fifth metatarsal on 12/27/[address] Paramjit Mcintosh, freelance interpreter/translator. b. Healing by secondary intention with the aid of a wound VAC. c. On amoxicillin, Diflucan for 2 weeks. d. Wound change every 3 days. Changed yesterday and wound clean as of 01/03. 3. Osteomyelitis of the left great toe and metatarsal head requiring: a. Status post amputation of the left great toe and metatarsal head on 03/11. b. Healing by secondary intention. c. Wound gradually healing as of 01/09/2019. 4. Alzheimer dementia. a. Complicated by episodes of apathy and minimal responsiveness. b. Marked improvement where she is alert and interactive and in no distress as of the morning of 12/31/2018. c. Stable. Slow to respond to answers in low tone, but no more episodes of unresponsiveness as of 01/09/2019. 5. Hypertension. a. Controlled as of 01/09/0605/05/2019. 6. Chronic renal disease. a. Creatinine down to 2.08 and GFR 23 as of 12/31/2018. 7. Peripheral neuropathy. a. Presently asymptomatic. 8. Spondylosis of the LS spine. 9. Herpes simplex, intermittent. a. Acute outbreak over the low back as of 01/01/2019. PLAN: Continue PT. Continue wound care, but the patient's potassium is up to 4.5 and sodium 144. We will reduce her potassium to 10 mEq b.i.d. and recheck potassium in 2 days. Job ID: [id number] [facility]
[2019-01-09] MEDS: Potassium Chloride 10 MEQ TAB PO SCH (17:31)
[2019-01-10] MEDS: Fluconazole 100 MG TAB PO SCH (08:35)
[2019-01-10] MEDS: Aspirin 325 MG TAB PO SCH (08:35)
[2019-01-10] MEDS: Amlodipine 5 MG TAB PO SCH (08:35)
[2019-01-10] MEDS: AMOXicillin 250 MG CAP PO SCH ×2 (08:35→21:43)
[2019-01-10] MEDS: Potassium Chloride 10 MEQ TAB PO SCH ×2 (08:35→17:01)
[2019-01-10] MEDS: Donepezil HCl 10 MG TAB PO SCH (08:36)
[2019-01-10] MEDS: Clotrimazole 1% Cream 15 GM TUBE TOP SCH ×2 (08:36→21:44)
[2019-01-10] MEDS: EUCERIN CREME 57 GRAM TUBE TP SCH ×2 (08:36→21:44)
[2019-01-10] MEDS: Acyclovir 200 mg Capsule PO SCH ×2 (08:42→21:43)
--- NOTE | 2019-01-10 10:02 | PRG ---
DATE OF SERVICE: 01/10/2019 SUBJECTIVE: The patient thinks she is doing good. She continues to work with physical therapy. Yesterday, she walked 8 feet over the last few days. She has been walking up to 10 feet using a rolling walker with caregiver assist that is minimal and is requiring some minimal now assistance with transfers. OBJECTIVE: GENERAL: The patient is sitting up in a chair. She is alert, appears comfortable, in no distress. VITAL SIGNS: Her temp is 96.9, pulse 68, respirations 16, O2 saturation 96%, blood pressure 141/63. LUNGS: Clear. HEART: Regular rate. EXTREMITIES: Dressings were changed early this morning on the foot, on the left. PT is changing the wound VAC Wednesday, Wednesday, and Wednesday on the right foot. ASSESSMENT: 1. Generalized weakness and deconditioning. a. Improved, walking 8 to 10 feet with a rolling walker and minimal caregiver assist. Transferring with minimal to moderate assistance as of 2018. 2. Osteomyelitis of the right fifth toe and metatarsal head. a. Status post amputation of the toe and the head of the fifth metatarsal on 12/27/[address] Paramjit Mcintosh, asset coordinator. b. Healing by secondary intention with the aid of a wound VAC. c. On amoxicillin, Diflucan for 2 weeks. d. Wound change every 3 days. Changed yesterday and wound clean as of 01/03. 3. Osteomyelitis of the left great toe and metatarsal head requiring: a. Status post amputation of the left great toe and metatarsal head on 03/11. b. Healing by secondary intention. c. Wound gradually healing as of 01/10/2019. 4. Alzheimer dementia. a. Complicated by episodes of apathy and minimal responsiveness. b. Marked improvement where she is alert and interactive and in no distress as of the morning of 12/31/2018. c. Stable. Slow to respond to answers in low tone, but no more episodes of unresponsiveness as of 01/10/2019. 5. Hypertension. a. Controlled as of 01/09/0605/05/2019. 6. Chronic renal disease. a. Creatinine down to 2.08 and GFR 23 as of 12/31/2018. 7. Peripheral neuropathy. a. Presently asymptomatic. 8. Spondylosis of the LS spine. 9. Herpes simplex, intermittent. a. Acute outbreak over the low back as of 01/01/2019. PLAN: PLAN: Continue present care. Continue present wound care. Continue PT. Job ID: [id number] [facility]
[2019-01-10] MEDS: Atorvastatin Calcium 40 MG TAB PO SCH (21:43)
[2019-01-11 06:16] LABS: Anion Gap 15 mmol/L (10-20); BUN (Urea Nitrogen) 38 mg/dL (9.8-20.1); Calc. Creatinine Clearance 64 mL/min (70-130); Calcium 9.7 mg/dL (7.8-10.44); Carbon Dioxide 25 mmol/L (23-31); Chloride 106 mmol/L (98-107); Estimated GFR-MDRD 42; Glucose 114 mg/dL (83-110); Potassium 4.3 mmol/L (3.5-5.1); Sodium 142 mmol/L (136-145)
[2019-01-11] MEDS: Acyclovir 200 mg Capsule PO SCH ×2 (08:57→20:35)
[2019-01-11] MEDS: Aspirin 325 MG TAB PO SCH (08:57)
[2019-01-11] MEDS: Fluconazole 100 MG TAB PO SCH (08:57)
[2019-01-11] MEDS: AMOXicillin 250 MG CAP PO SCH ×2 (08:58→20:35)
[2019-01-11] MEDS: Potassium Chloride 10 MEQ TAB PO SCH ×2 (08:58→17:28)
[2019-01-11] MEDS: Donepezil HCl 10 MG TAB PO SCH (08:58)
[2019-01-11] MEDS: Amlodipine 5 MG TAB PO SCH (08:58)
[2019-01-11] MEDS: EUCERIN CREME 57 GRAM TUBE TP SCH ×2 (08:58→20:36)
[2019-01-11] MEDS: Clotrimazole 1% Cream 15 GM TUBE TOP SCH ×2 (08:59→20:35)
--- NOTE | 2019-01-11 09:20 | PRG ---
DATE OF SERVICE: 01/11/2019 SUBJECTIVE: Patient has no complaint this morning. She is doing better. Her ability to walk has been limited due to the wound VAC on her right foot. She has difficulty trying to walk on the heel only, to avoid pressure against the wound, therapy though continues to work with her and she is making slow progress. The wounds are reported have been very clean and are doing better. OBJECTIVE: GENERAL: The patient is lying in bed, alert, appears comfortable, in no distress. VITAL SIGNS: Her temperature is 97, pulse 63, and respirations 16. Her O2 saturation is 95% on room air and blood pressure 129/63. LUNGS: Clear. HEART: Regular rate. EXTREMITIES: There is no edema. The dressings on her feet are dry. LABORATORY DATA: Shows a sodium of 142, potassium 4.3, BUN of 38, creatinine 1.23, GFR improved to 42 from a low of 17 on 12/28/2018, and glucose 114. ASSESSMENT: 1. Generalized weakness and deconditioning. a. Improved, able to walk short distances with a rolling walker, has trouble with walking due to the bandaging of the wound and the wound VAC on the right forefoot. Requiring moderate assistance still with transfers as of 01/11/2019. 2. Osteomyelitis of the right fifth toe and metatarsal head. a. Status post amputation of the toe and the head of the fifth metatarsal on 12/27/[address] Paramjit Mcintosh, pharmacist's aide. b. Healing by secondary intention with the aid of a wound VAC. c. On amoxicillin, Diflucan for 2 weeks. d. Wound clean and gradually improving as of 01/11/2019. 3. Osteomyelitis of the left great toe and metatarsal head requiring: a. Status post amputation of the left great toe and metatarsal head on 03/11. b. Healing by secondary intention. c. Wound gradually healing as of 01/11/2019. 4. Alzheimer dementia. a. Complicated by episodes of apathy and minimal responsiveness. b. Marked improvement where she is alert and interactive and in no distress as of the morning of 12/31/2018. c. Improved as of 01/11, much more interactive. 5. Hypertension. a. Controlled as of 01/11/0611/11/2018. 6. Chronic renal disease. a. Creatinine down to 2.08 and GFR 23 as of 12/31/2018. 7. Peripheral neuropathy. a. Presently asymptomatic. 8. Spondylosis of the LS spine. 9. Herpes simplex, intermittent. a. Acute outbreak over the low back as of 01/01/2019. b. Lesions are all drying up as of 01/11/2019. PLAN: Continue present wound care. Continue PT. Job ID: [id number] [facility]
[2019-01-11] MEDS: Atorvastatin Calcium 40 MG TAB PO SCH (20:35)
[2019-01-12] MEDS: AMOXicillin 250 MG CAP PO SCH ×2 (09:00→20:27)
[2019-01-12] MEDS: Donepezil HCl 10 MG TAB PO SCH (09:00)
[2019-01-12] MEDS: Potassium Chloride 10 MEQ TAB PO SCH ×2 (09:00→17:28)
[2019-01-12] MEDS: Aspirin 325 MG TAB PO SCH (09:00)
[2019-01-12] MEDS: Acyclovir 200 mg Capsule PO SCH ×2 (09:00→20:27)
[2019-01-12] MEDS: Fluconazole 100 MG TAB PO SCH (09:01)
[2019-01-12] MEDS: Amlodipine 5 MG TAB PO SCH (09:02)
[2019-01-12] MEDS: Clotrimazole 1% Cream 15 GM TUBE TOP SCH ×2 (09:03→20:28)
[2019-01-12] MEDS: EUCERIN CREME 57 GRAM TUBE TP SCH ×2 (09:04→20:28)
--- NOTE | 2019-01-12 10:43 | PRG ---
DATE OF SERVICE: 01/12/2019 SUBJECTIVE: The patient is still in bed this morning and will be getting up soon for breakfast and PT. She had no complaint. Yesterday, she was able to walk up to 15 feet with a rolling walker and caregiver assist. She yesterday required moderate amount of assistance with transfers. OBJECTIVE: GENERAL: The patient is lying in bed, alert, answers questions appropriately. Appears in no distress. VITAL SIGNS: Her temp is 97.7, pulse 76, respirations 16, O2 saturation 97% on room air, blood pressure 132/65. LUNGS: Clear. HEART: Regular rate. LOWER EXTREMITIES: No edema. Dressings are dry. ASSESSMENT: 1. Generalized weakness and deconditioning. a. Walking up to 15 feet with a rolling walker and caregiver assist. Still requiring minimum to moderate assistance with any transfers as of 2018. 2. Osteomyelitis of the right fifth toe and metatarsal head. a. Status post amputation of the toe and the head of the fifth metatarsal on 12/27/[address] Paramjit Mcintosh, assistant attorney general. b. Healing by secondary intention with the aid of a wound VAC. c. On amoxicillin, Diflucan for 2 weeks. d. Wound clean and gradually improving as of 01/12/2019. 3. Osteomyelitis of the left great toe and metatarsal head requiring: a. Status post amputation of the left great toe and metatarsal head on 03/11. b. Healing by secondary intention. c. Wound gradually healing as of 01/12/2019. 4. Alzheimer dementia. a. Complicated by episodes of apathy and minimal responsiveness. b. Marked improvement where she is alert and interactive and in no distress as of the morning of 12/31/2018. c. Stable with no behavioral issues as of 01/12/2019. 5. Hypertension. a. Controlled as of 01/11/0611/11/2018. 6. Chronic renal disease. a. Creatinine down to 2.08 and GFR 23 as of 12/31/2018. 7. Peripheral neuropathy. a. Presently asymptomatic. 8. Spondylosis of the LS spine. 9. Herpes simplex, intermittent. a. Acute outbreak over the low back as of 01/01/2019. b. Lesions are all drying up as of 01/11/2019. PLAN: Continue present care. Continue PT. Continue wound care. Job ID: [id number] [facility]
[2019-01-12] MEDS: Bismuth Subs 17.5mg/mL Susp 120 ML BOT PO PRN (18:12)
[2019-01-12] MEDS: Acetaminophen 325 MG TAB PO PRN (18:13)
[2019-01-12] MEDS: Atorvastatin Calcium 40 MG TAB PO SCH (20:27)
[2019-01-13] MEDS: AMOXicillin 250 MG CAP PO SCH ×2 (08:05→21:09)
[2019-01-13] MEDS: Potassium Chloride 10 MEQ TAB PO SCH ×2 (08:05→17:31)
[2019-01-13] MEDS: Acyclovir 200 mg Capsule PO SCH ×2 (08:05→21:08)
[2019-01-13] MEDS: Amlodipine 5 MG TAB PO SCH (08:06)
[2019-01-13] MEDS: Donepezil HCl 10 MG TAB PO SCH (08:06)
[2019-01-13] MEDS: Aspirin 325 MG TAB PO SCH (08:06)
[2019-01-13] MEDS: Fluconazole 100 MG TAB PO SCH (08:06)
[2019-01-13] MEDS: EUCERIN CREME 57 GRAM TUBE TP SCH ×2 (08:07→21:09)
[2019-01-13] MEDS: Clotrimazole 1% Cream 15 GM TUBE TOP SCH ×2 (08:07→21:09)
--- NOTE | 2019-01-13 13:46 | PRG ---
DATE OF SERVICE: 01/13/2019 SUBJECTIVE: The patient says she is doing good this morning. She had no complaint. She continues to work with Physical Therapy. Yesterday, she walked 20 feet twice with a rolling walker and caregiver assist. She was requiring minimal-to- moderate assistance with transfers. She is due to have the wound VAC on the right foot and dressing change on the left foot today. OBJECTIVE: GENERAL: The patient is sitting up in a Karolina chair. She is alert, answers questions appropriately, and appears in no distress. VITAL SIGNS: Her temperature is 97.4, her pulse is 66, blood pressure 137/63, respirations are 16, O2 saturation 98% on room air. LUNGS: Clear. HEART: Regular rate. EXTREMITIES: Lower extremities, no edema. Left foot, the wound over is smaller. There is no surrounding redness, and it looks clean. There is a little eschar developing on the edges of the wound. ASSESSMENT: 1. Generalized weakness and deconditioning. a. improved. Walking 20 feet x2 yesterday with a rolling walker and caregiver assist. Still requires pdqeqgm-[id number] assistance with transfers as of 01/13/2019. 2. Osteomyelitis of the right fifth toe and metatarsal head. a. Status post amputation of the toe and the head of the fifth metatarsal on 12/27/[address] Paramjit Mcintosh, stain sprayer. b. Healing by secondary intention with the aid of a wound VAC. c. On amoxicillin, Diflucan for 2 weeks. d. Wound clean and gradually improving as of 01/13/2019. 3. Osteomyelitis of the left great toe and metatarsal head requiring: a. Status post amputation of the left great toe and metatarsal head on 03/11. b. Healing by secondary intention. c. The wound is clean and gradually getting smaller as of 01/13/2019. 4. Alzheimer dementia. a. Complicated by episodes of apathy and minimal responsiveness. b. Marked improvement where she is alert and interactive and in no distress as of the morning of 12/31/2018. c. Stable with no behavioral issues as of 01/13/2019. 5. Hypertension. a. Controlled as of 01/13/0613/11/2018. 6. Chronic renal disease. a. Creatinine down to 2.08 and GFR 23 as of 12/31/2018. 7. Peripheral neuropathy. a. Presently asymptomatic. 8. Spondylosis of the LS spine. 9. Herpes simplex, intermittent. a. Acute outbreak over the low back as of 01/01/2019. b. Lesions are all drying up as of 01/11/2019. PLAN: Continue present wound care. Continue PT. Job ID: [id number] [facility]
[2019-01-13] MEDS: Atorvastatin Calcium 40 MG TAB PO SCH (21:09)
[2019-01-14] MEDS: Acyclovir 200 mg Capsule PO SCH ×2 (08:52→21:18)
[2019-01-14] MEDS: Fluconazole 100 MG TAB PO SCH (08:53)
[2019-01-14] MEDS: Donepezil HCl 10 MG TAB PO SCH (08:53)
[2019-01-14] MEDS: Potassium Chloride 10 MEQ TAB PO SCH ×2 (08:53→17:08)
[2019-01-14] MEDS: AMOXicillin 250 MG CAP PO SCH (08:53)
[2019-01-14] MEDS: Clotrimazole 1% Cream 15 GM TUBE TOP SCH ×2 (08:53→21:18)
[2019-01-14] MEDS: Aspirin 325 MG TAB PO SCH (08:53)
[2019-01-14] MEDS: EUCERIN CREME 57 GRAM TUBE TP SCH ×2 (08:53→21:18)
[2019-01-14] MEDS: Amlodipine 5 MG TAB PO SCH (08:53)
[2019-01-14] MEDS: Atorvastatin Calcium 40 MG TAB PO SCH (21:19)
[2019-01-15] MEDS: Donepezil HCl 10 MG TAB PO SCH (08:11)
[2019-01-15] MEDS: Potassium Chloride 10 MEQ TAB PO SCH ×2 (08:11→17:04)
[2019-01-15] MEDS: Aspirin 325 MG TAB PO SCH (08:11)
[2019-01-15] MEDS: Amlodipine 5 MG TAB PO SCH (08:11)
[2019-01-15] MEDS: Acyclovir 200 mg Capsule PO SCH ×2 (08:11→20:38)
[2019-01-15] MEDS: EUCERIN CREME 57 GRAM TUBE TP SCH ×2 (08:12→20:39)
[2019-01-15] MEDS: Clotrimazole 1% Cream 15 GM TUBE TOP SCH ×2 (08:12→20:39)
[2019-01-15] MEDS: Atorvastatin Calcium 40 MG TAB PO SCH (20:39)
--- NOTE | 2019-01-16 07:37 | PRG ---
DATE OF SERVICE: 01/14/2019 SUBJECTIVE: The patient had no complaint. She is just wanting to go home. She is not yet strong enough to where the family could adequately take care of her. Primary caregiver is her , who is in a lower leg walking cast and only toe touching. Family is close, but not in the home. The patient has improved, but not at a point, where she could manage at home. The nurse said that she has had three loose stools, a little greenish. She has requested a C diff evaluation with the next stool, which has been ordered. OBJECTIVE: GENERAL: The patient is sitting up in a chair. She is alert, appears comfortable, in no distress. VITAL SIGNS: Her temperature is 98.3, pulse 66, respirations 18, O2 saturation 98% on room air, blood pressure 120/58. LUNGS: Clear. HEART: Regular rate. EXTREMITIES: No edema. The wound on the right foot was seen yesterday during dressing change and looks excellent. There is excellent base of granulation tissue. The deep recess of the wound is such that the recess is almost leveled with rest of the wound. There is no surrounding redness. The wound is smaller. The wound on the left foot is smaller and has good granulation base. ASSESSMENT: 1. Generalized weakness and deconditioning. a. improved. Walking 20 feet x2 yesterday with a rolling walker and caregiver assist. Still requires [id number]-[id number] assistance with transfers as of 01/14/2019. 2. Osteomyelitis of the right fifth toe and metatarsal head. a. Status post amputation of the toe and the head of the fifth metatarsal on 12/27/[address] Paramjit Mcintosh, blasting entryman. b. Wound is very clean and smaller with excellent granulation tissue. Continues to use the wound VAC as of 01/14. c. Has completed 2-week course of amoxicillin and Diflucan as of 2018. 3. Osteomyelitis of the left great toe and metatarsal head requiring: a. Status post amputation of the left great toe and metatarsal head on 03/11. b. Healing by secondary intention. c. The wound is clean and gradually getting smaller as of 01/14/2019. 4. Alzheimer dementia. a. Complicated by episodes of apathy and minimal responsiveness. b. Marked improvement where she is alert and interactive and in no distress as of the morning of 12/31/2018. c. Stable with no behavioral issues as of 01/14/2019. 5. Hypertension. a. Controlled as of 01/13/0613/11/2018. 6. Chronic renal disease. a. Creatinine down to 2.08 and GFR 23 as of 12/31/2018. 7. Peripheral neuropathy. a. Presently asymptomatic. 8. Spondylosis of the LS spine. 9. Herpes simplex, intermittent. a. Acute outbreak over the low back as of 01/01/2019. b. Lesions are all drying up as of 01/11/2019. PLAN: The patient is having some loose stools that may be from the Ensure supplement that she is drinking. This has been stopped. If she has additional stools that are runny, we will have to order a C difficile antigen and toxin. Continue PT and OT. Continue present wound care. The patient needs to stay longer until her strength is better. At this time, it would be difficult to manage her in the home. Stop the amoxicillin and Diflucan. Job ID: [id number] [facility]
[2019-01-16] MEDS: EUCERIN CREME 57 GRAM TUBE TP SCH ×2 (08:24→20:42)
[2019-01-16] MEDS: Amlodipine 5 MG TAB PO SCH (08:25)
[2019-01-16] MEDS: Donepezil HCl 10 MG TAB PO SCH (08:25)
[2019-01-16] MEDS: Acyclovir 200 mg Capsule PO SCH ×2 (08:25→20:42)
[2019-01-16] MEDS: Potassium Chloride 10 MEQ TAB PO SCH ×2 (08:25→17:14)
[2019-01-16] MEDS: Aspirin 325 MG TAB PO SCH (08:25)
[2019-01-16] MEDS: Clotrimazole 1% Cream 15 GM TUBE TOP SCH ×2 (08:25→20:42)
[2019-01-16] MEDS: Vancomycin HCl 25 MG/ML Oral PO SCH ×3 (09:54→20:42)
--- NOTE | 2019-01-16 12:55 | PRG ---
DATE OF SERVICE: 01/16/2019 SUBJECTIVE: The patient is up in her geriatric chair. She is alert and feeling better. The diarrhea is better since she has stopped the Ensure. Her C diff antigen and toxin were both positive. She has been placed in isolation. Will be started on vancomycin this morning. OBJECTIVE: GENERAL: The patient looks alert, talkative, appears very comfortable and in no distress. VITAL SIGNS: Her temp is 97.7, pulse 64, respirations 18, O2 saturation 98% on room air, blood pressure 130/63. LUNGS: Clear. HEART: Regular rate. EXTREMITIES: No edema. LABORATORY DATA: C diff antigen and toxin were both positive. ASSESSMENT: 1. Generalized weakness and deconditioning. a. Improved. Walking 20 feet x2 yesterday with a rolling walker and caregiver assist. Still requires ksskisg-[id number] assistance with transfers as of 01/16/2019. 2. Osteomyelitis of the right fifth toe and metatarsal head. a. Status post amputation of the toe and the head of the fifth metatarsal on 12/27/[address] Paramjit Mcintosh, ice cream dispenser. b. Healing by secondary intention with the aid of a wound VAC. c. Completed 2-week course of amoxicillin and Diflucan. d. Wound clean and gradually improving as of 01/16/2019. 3. Osteomyelitis of the left great toe and metatarsal head requiring: a. Status post amputation of the left great toe and metatarsal head on 03/11. b. Healing by secondary intention. c. The wound is clean and gradually getting smaller as of 01/16/2019. 4. Alzheimer dementia. a. Complicated by episodes of apathy and minimal responsiveness. b. Marked improvement where she is alert and interactive and in no distress as of the morning of 12/31/2018. c. Stable with no behavioral issues as of 01/13/2019. 5. Hypertension. a. Controlled as of 01/16/2019. 6. Chronic renal disease. a. Creatinine down to 1.23 and GFR 42 on 01/11/2019. 7. Peripheral neuropathy. a. Presently asymptomatic. 8. Spondylosis of the LS spine. 9. Herpes simplex, intermittent. a. Acute outbreak over the low back as of 01/01/2019. b. Lesions are all drying up as of 01/11/2019. 10. C diff colitis. a. C diff antigen and toxin positive reported back on the evening of 2018. b. Two-week course of vancomycin started on 01/16/19. PLAN: Continue PT, OT. The patient is in isolation for the C diff infection. We will place the patient on vancomycin 125 mg q.i.d. for 14 days. Continue present wound care. Job ID: [id number] [facility]
[2019-01-16] MEDS: Atorvastatin Calcium 40 MG TAB PO SCH (20:42)
[2019-01-17] MEDS: Vancomycin HCl 25 MG/ML Oral PO SCH ×4 (03:06→21:13)
[2019-01-17 05:16] LABS: #Basophils 0.2 thou/uL (0.0-0.2); #Eosinphils 0.8 thou/uL (0.0-0.7); #Lymphocytes 1.1 thou/uL (1.20-3.40); #Monocytes 0.9 thou/uL (0.11-0.59); #Neutrophils 6.9 thou/uL (1.40-6.50); %Basophils 1.7 % (0.0-1.0); %Eosinophils 8.3 % (0.0-10.0); %Lymphocytes 11.5 % (21.0-51.0); %Monocytes 9.2 % (0.0-10.0); %Neutrophils 69.4 % (42.0-75.0); Hemoglobin 12.7 g/dL (12.0-16.0); Mean Corpuscular HGB CONC 31.4 g/dL (32.0-36.0); Mean Corpuscular Volume 89.1 fL (78.0-98.0); Mean Platelet Volume 8.5 fL (7.4-10.4); Platelet Count 150 thou/uL (130-400); RBC Distribution Width 16.5 % (11.5-14.5); Red Blood Cell (RBC) Count 4.55 mill/uL (4.20-5.40)
[2019-01-17 05:27] LABS: Anion Gap 18 mmol/L (10-20); BUN (Urea Nitrogen) 33 mg/dL (9.8-20.1); Calc. Creatinine Clearance 76 mL/min (70-130); Calcium 9.2 mg/dL (7.8-10.44); Carbon Dioxide 19 mmol/L (23-31); Chloride 107 mmol/L (98-107); Estimated GFR-MDRD 51; Glucose 107 mg/dL (83-110); Potassium 4.4 mmol/L (3.5-5.1); Sodium 140 mmol/L (136-145)
[2019-01-17] MEDS: Aspirin 325 MG TAB PO SCH (08:38)
[2019-01-17] MEDS: Clotrimazole 1% Cream 15 GM TUBE TOP SCH ×2 (08:38→21:13)
[2019-01-17] MEDS: Donepezil HCl 10 MG TAB PO SCH (08:39)
[2019-01-17] MEDS: Potassium Chloride 10 MEQ TAB PO SCH ×2 (08:39→18:05)
[2019-01-17] MEDS: Acyclovir 200 mg Capsule PO SCH ×2 (08:39→21:12)
[2019-01-17] MEDS: Amlodipine 5 MG TAB PO SCH (08:39)
[2019-01-17] MEDS: EUCERIN CREME 57 GRAM TUBE TP SCH ×2 (08:40→21:13)
--- NOTE | 2019-01-17 10:16 | PRG ---
DATE OF SERVICE: 01/17/2019 SUBJECTIVE: The patient is up in a Karolina chair. She did not have any complaints. Nurses did not report any change in her condition. Her loose stools are improved. OBJECTIVE: GENERAL: The patient is alert, appears comfortable, no distress. VITAL SIGNS: Temp 97, pulse 71, respirations 18, O2 saturation 94%, blood pressure 144/65. LUNGS: Clear. HEART: Regular rate. EXTREMITIES: No edema. LABORATORY DATA: Her H and H 12.7 and 40.6 with a white blood cell count of 10, 000 with 69% segs, 11% lymphocytes, and platelet count of a 150,000. Sodium 140, potassium 4.4, BUN down to 33, creatinine 1.05, GFR up to 51, glucose 107. ASSESSMENT: 1. Generalized weakness and deconditioning. a. improved. Walking 20 feet x2 yesterday with a rolling walker and caregiver assist. Still requires kjfmwop-qh-hwuaurya assistance with transfers as of 01/17/2019. 2. Osteomyelitis of the right fifth toe and metatarsal head. a. Status post amputation of the toe and the head of the fifth metatarsal on 12/27/[address] Paramjit Mcintosh, corset maker. b. Healing by secondary intention with the aid of a wound VAC. c. Completed 2-week course of amoxicillin and Diflucan. d. Wound clean and gradually improving as of 01/17/2019. 3. Osteomyelitis of the left great toe and metatarsal head requiring: a. Status post amputation of the left great toe and metatarsal head on 03/11. b. Healing by secondary intention. c. The wound is clean and gradually getting smaller as of 01/17/2019. 4. Alzheimer dementia. a. Complicated by episodes of apathy and minimal responsiveness. b. Marked improvement where she is alert and interactive and in no distress as of the morning of 12/31/2018. c. Stable with no behavioral issues as of 01/17/2019. 5. Hypertension. a. Controlled as of 01/17/2019. 6. Chronic renal disease. a. Creatinine down to 1.23 and GFR 42 on 01/11/2019. b. GFR up to 51 as of 01/17/2019. 7. Peripheral neuropathy. a. Presently asymptomatic. 8. Spondylosis of the LS spine. 9. Herpes simplex, intermittent. a. Acute outbreak over the low back as of 01/01/2019. b. Healing as of 01/17/2019. 10. C diff colitis. a. C diff antigen and toxin positive reported back on the evening of 2018. b. Two-week course of vancomycin started on 01/16/19. PLAN: Continue present care. Continue PT/OT. Continue the p.o. vancomycin. Job ID: [id number] [facility]
[2019-01-17] MEDS: Bismuth Subs 17.5mg/mL Susp 120 ML BOT PO PRN (18:08)
[2019-01-17] MEDS: Atorvastatin Calcium 40 MG TAB PO SCH (21:12)
[2019-01-18] MEDS: Vancomycin HCl 25 MG/ML Oral PO SCH ×4 (02:41→20:54)
[2019-01-18] MEDS: Aspirin 325 MG TAB PO SCH (08:41)
[2019-01-18] MEDS: Donepezil HCl 10 MG TAB PO SCH (08:41)
[2019-01-18] MEDS: Potassium Chloride 10 MEQ TAB PO SCH ×2 (08:41→17:17)
[2019-01-18] MEDS: Acyclovir 200 mg Capsule PO SCH ×2 (08:41→20:55)
[2019-01-18] MEDS: Amlodipine 5 MG TAB PO SCH (08:41)
[2019-01-18] MEDS: Clotrimazole 1% Cream 15 GM TUBE TOP SCH ×2 (08:42→20:56)
[2019-01-18] MEDS: EUCERIN CREME 57 GRAM TUBE TP SCH ×2 (08:42→20:56)
--- NOTE | 2019-01-18 10:08 | PRG ---
DATE OF SERVICE: 01/18/2019 SUBJECTIVE: The patient had no complaint this morning of diarrhea. She said it is much better resolving. She still remains on the vancomycin. She is doing good with therapy. Her wounds are being changed on Wednesday, Wednesday, and Wednesday. OBJECTIVE: GENERAL: The patient is sitting up in a Karolina chair. She looks happy, in no distress. VITAL SIGNS: Her temperature is 97, pulse 59, respirations 16, O2 saturation 94 % on room air, and blood pressure 148/65. LUNGS: Clear. HEART: Regular rate. EXTREMITIES: No edema. Dressings are dry. ASSESSMENT: 1. Generalized weakness and deconditioning. a. Improved. Walking a little further with a rolling walker and caregiver assist. Still requires [id number] assistance with transfers as of 01/18. 2. Osteomyelitis of the right fifth toe and metatarsal head. a. Status post amputation of the toe and the head of the fifth metatarsal on 12/27/[address] Paramjit Mcintosh, set up operator. b. Healing by secondary intention with the aid of a wound VAC. c. Completed 2-week course of amoxicillin and Diflucan. d. Wound clean and gradually improving as of 01/18/2019. 3. Osteomyelitis of the left great toe and metatarsal head requiring: a. Status post amputation of the left great toe and metatarsal head on 03/11. b. Healing by secondary intention. c. The wound is clean and gradually getting smaller as of 01/18/2019. 4. Alzheimer dementia. a. Complicated by episodes of apathy and minimal responsiveness. b. Marked improvement where she is alert and interactive and in no distress as of the morning of 12/31/2018. c. Stable with no behavioral issues as of 01/18/2019. 5. Hypertension. a. Controlled as of 01/18/2019. 6. Chronic renal disease. a. Creatinine down to 1.23 and GFR 42 on 01/11/2019. b. GFR up to 51 as of 01/17/2019. 7. Peripheral neuropathy. a. Presently asymptomatic. 8. Spondylosis of the LS spine. 9. Herpes simplex, intermittent. a. Acute outbreak over the low back as of 01/01/2019. b. Healing as of 01/17/2019. 10. C diff colitis. a. C diff antigen and toxin positive reported back on the evening of 2018. b. Two-week course of vancomycin started on 01/16/19. c. Improving as of 01/18/2019. PLAN: Continue present care. Continue the 2-week course of p.o. vancomycin. Continue wound care. Continue PT. Job ID: [id number] [facility]
[2019-01-18] MEDS: Atorvastatin Calcium 40 MG TAB PO SCH (20:54)
[2019-01-19] MEDS: Vancomycin HCl 25 MG/ML Oral PO SCH ×4 (03:05→21:22)
[2019-01-19] MEDS: Potassium Chloride 10 MEQ TAB PO SCH ×2 (09:19→17:01)
[2019-01-19] MEDS: Amlodipine 5 MG TAB PO SCH (09:20)
[2019-01-19] MEDS: Donepezil HCl 10 MG TAB PO SCH (09:20)
[2019-01-19] MEDS: Aspirin 325 MG TAB PO SCH (09:20)
[2019-01-19] MEDS: Acyclovir 200 mg Capsule PO SCH ×2 (09:20→21:23)
[2019-01-19] MEDS: Clotrimazole 1% Cream 15 GM TUBE TOP SCH ×2 (09:20→21:22)
[2019-01-19] MEDS: EUCERIN CREME 57 GRAM TUBE TP SCH ×2 (09:20→21:22)
[2019-01-19 12:16] VITALS: BMI 33.6
[2019-01-19] MEDS: Bismuth Subs 17.5mg/mL Susp 120 ML BOT PO PRN (16:17)
[2019-01-19] MEDS: Atorvastatin Calcium 40 MG TAB PO SCH (21:23)
[2019-01-20] MEDS: Vancomycin HCl 25 MG/ML Oral PO SCH ×4 (03:07→20:11)
[2019-01-20] MEDS: Acyclovir 200 mg Capsule PO SCH ×2 (09:52→20:10)
[2019-01-20] MEDS: Amlodipine 5 MG TAB PO SCH (09:52)
[2019-01-20] MEDS: Donepezil HCl 10 MG TAB PO SCH (09:52)
[2019-01-20] MEDS: Aspirin 325 MG TAB PO SCH (09:52)
[2019-01-20] MEDS: Potassium Chloride 10 MEQ TAB PO SCH ×2 (09:52→17:31)
[2019-01-20] MEDS: EUCERIN CREME 57 GRAM TUBE TP SCH ×2 (09:53→20:11)
[2019-01-20] MEDS: Clotrimazole 1% Cream 15 GM TUBE TOP SCH ×2 (09:54→20:11)
--- NOTE | 2019-01-20 12:02 | PRG ---
DATE OF SERVICE: 01/20/2019 SUBJECTIVE: The patient says she is doing good this morning. She said she has not had any diarrhea. Her wounds are being dressed Wednesday, Wednesday, and Wednesday. The wounds are improving. Yesterday, she walked up to 20 feet on 2 occasions with her 4-wheeled walker and caregiver assist. She is requiring minimum assistance for transfers. OBJECTIVE: GENERAL: The patient is sitting up in her geriatric chair. She is alert, talkative, appears in no distress. VITAL SIGNS: Her temperature 96.6, pulse 64, respirations 20, O2 saturation 97% , blood pressure 136/63. LUNGS: Clear. HEART: Regular rate. EXTREMITIES: No edema. ASSESSMENT: 1. Generalized weakness and deconditioning. a. Improved. Walking up to 20 feet 2 times a day with her 4-wheeled walker and minimum assistance. Transferring with minimal assistance as of 2018. 2. Osteomyelitis of the right fifth toe and metatarsal head. a. Status post amputation of the toe and the head of the fifth metatarsal on 12/27/[address] Paramjit Mcintosh, concrete technician. b. Healing by secondary intention with the aid of a wound VAC. c. Completed 2-week course of amoxicillin and Diflucan. d. Wound clean and gradually improving as of 01/20/2019. 3. Osteomyelitis of the left great toe and metatarsal head requiring: a. Status post amputation of the left great toe and metatarsal head on 03/11. b. Healing by secondary intention. c. The wound is clean and gradually getting smaller as of 01/20/2019. 4. Alzheimer dementia. a. Complicated by episodes of apathy and minimal responsiveness. b. Marked improvement where she is alert and interactive and in no distress as of the morning of 12/31/2018. c. Stable with no behavioral issues as of 01/20/2019. 5. Hypertension. a. Controlled as of 01/20/2019. 6. Chronic renal disease. a. Creatinine down to 1.23 and GFR 42 on 01/11/2019. b. GFR up to 51 as of 01/17/2019. 7. Peripheral neuropathy. a. Presently asymptomatic. 8. Spondylosis of the LS spine. 9. Herpes simplex, intermittent. a. Acute outbreak over the low back as of 01/01/2019. b. Healing as of 01/17/2019. 10. C diff colitis. a. C diff antigen and toxin positive reported back on the evening of 2018. b. Two-week course of vancomycin started on 01/16/19. c. Diarrhea resolved as of 01/20/2019. PLAN: Continue present care. Continue PT. Continue wound care. The patient plans on going on a pass tomorrow to her home. She will have plenty of support and see how this goes. If this goes well, we will probably be able to then target the discharge date. Job ID: [id number] MTDD
[2019-01-20] MEDS: Atorvastatin Calcium 40 MG TAB PO SCH (20:10)
[2019-01-21] MEDS: Vancomycin HCl 25 MG/ML Oral PO SCH ×4 (04:44→20:54)
[2019-01-21] MEDS: Potassium Chloride 10 MEQ TAB PO SCH ×2 (08:38→16:15)
[2019-01-21] MEDS: Amlodipine 5 MG TAB PO SCH (08:39)
[2019-01-21] MEDS: Aspirin 325 MG TAB PO SCH (08:39)
[2019-01-21] MEDS: Donepezil HCl 10 MG TAB PO SCH (08:39)
[2019-01-21] MEDS: Acyclovir 200 mg Capsule PO SCH ×2 (08:39→20:54)
[2019-01-21] MEDS: EUCERIN CREME 57 GRAM TUBE TP SCH ×2 (08:40→20:57)
[2019-01-21] MEDS: Clotrimazole 1% Cream 15 GM TUBE TOP SCH ×2 (08:40→20:55)
[2019-01-21] MEDS: Bismuth Subs 17.5mg/mL Susp 120 ML BOT PO PRN (08:41)
[2019-01-21] MEDS: Atorvastatin Calcium 40 MG TAB PO SCH (20:54)
[2019-01-22] MEDS: Vancomycin HCl 25 MG/ML Oral PO SCH ×4 (03:04→20:12)
[2019-01-22] MEDS: Acyclovir 200 mg Capsule PO SCH ×2 (09:43→20:12)
[2019-01-22] MEDS: Potassium Chloride 10 MEQ TAB PO SCH ×2 (09:43→16:05)
[2019-01-22] MEDS: Aspirin 325 MG TAB PO SCH (09:43)
[2019-01-22] MEDS: Amlodipine 5 MG TAB PO SCH (09:44)
[2019-01-22] MEDS: Donepezil HCl 10 MG TAB PO SCH (09:44)
[2019-01-22] MEDS: EUCERIN CREME 57 GRAM TUBE TP SCH ×2 (09:45→20:13)
[2019-01-22] MEDS: Clotrimazole 1% Cream 15 GM TUBE TOP SCH ×2 (09:45→20:13)
[2019-01-22] MEDS: Bismuth Subs 17.5mg/mL Susp 120 ML BOT PO PRN (16:06)
[2019-01-22] MEDS: Atorvastatin Calcium 40 MG TAB PO SCH (20:12)
[2019-01-23] MEDS: Vancomycin HCl 25 MG/ML Oral PO SCH ×4 (02:40→20:12)
[2019-01-23] MEDS: Donepezil HCl 10 MG TAB PO SCH (08:41)
[2019-01-23] MEDS: Aspirin 325 MG TAB PO SCH (08:41)
[2019-01-23] MEDS: Acyclovir 200 mg Capsule PO SCH ×2 (08:41→20:12)
[2019-01-23] MEDS: Potassium Chloride 10 MEQ TAB PO SCH ×2 (08:41→17:13)
[2019-01-23] MEDS: Amlodipine 5 MG TAB PO SCH (08:42)
[2019-01-23] MEDS: EUCERIN CREME 57 GRAM TUBE TP SCH ×2 (08:42→20:13)
[2019-01-23] MEDS: Clotrimazole 1% Cream 15 GM TUBE TOP SCH ×2 (08:42→20:13)
[2019-01-23] MEDS: Bismuth Subs 17.5mg/mL Susp 120 ML BOT PO PRN (08:45)
--- NOTE | 2019-01-23 09:01 | PRG ---
DATE OF SERVICE: 01/23/2019 SUBJECTIVE: The patient said she had a great visit at home on Sunday 01/21, and everything seemed to go fine. She is hoping to plan on going home soon. OBJECTIVE: GENERAL: The patient is sitting up on the edge of her bed. She is alert and talkative. Appears very comfortable, in no distress. She has had no more diarrhea. VITAL SIGNS: Her temperature is 97.7, pulse 81, respirations 20, O2 saturation 99%, blood pressure 130/89. LUNGS: Clear. HEART: Regular rate. EXTREMITIES: Dressings are dry on the feet. The wounds are due to be dressed today and reportedly are improving. ASSESSMENT: 1. Generalized weakness and deconditioning. a. Improved. Walking up to 20 feet 2 times a day with her 4-wheeled walker and minimum assistance. Transferring with minimal assistance as of 2018. 2. Osteomyelitis of the right fifth toe and metatarsal head. a. Status post amputation of the toe and the head of the fifth metatarsal on 12/27/[address] Paramjit Mcintosh, operating room manager. b. Healing by secondary intention with the aid of a wound VAC. c. Completed 2-week course of amoxicillin and Diflucan. d. Wound clean and gradually improving as of 01/23/2019. 3. Osteomyelitis of the left great toe and metatarsal head requiring: a. Status post amputation of the left great toe and metatarsal head on 03/11. b. Healing by secondary intention. c. The wound is clean and gradually getting smaller as of 01/23/2019. 4. Alzheimer dementia. a. Complicated by episodes of apathy and minimal responsiveness. b. Marked improvement where she is alert and interactive and in no distress as of the morning of 12/31/2018. c. Stable with no behavioral issues as of 01/23/2019. 5. Hypertension. a. Controlled as of 01/23/2019. 6. Chronic renal disease. a. Creatinine down to 1.23 and GFR 42 on 01/11/2019. b. GFR up to 51 as of 01/17/2019. 7. Peripheral neuropathy. a. Presently asymptomatic. 8. Spondylosis of the LS spine. 9. Herpes simplex, intermittent. a. Acute outbreak over the low back as of 01/01/2019. b. Healing as of 01/17/2019. 10. C diff colitis. a. C diff antigen and toxin positive reported back on the evening of 2018. b. Two-week course of vancomycin started on 01/16/19. c. Diarrhea resolved as of 01/20/2019. d. Asymptomatic as of 01/23. Has completed 7 of 14-day course of vancomycin. PLAN: Continue present care. Continue present wound care. Continue PT. Job ID: [id number] [facility]
[2019-01-23] MEDS: Atorvastatin Calcium 40 MG TAB PO SCH (20:13)
[2019-01-24] MEDS: Vancomycin HCl 25 MG/ML Oral PO SCH ×4 (04:22→21:44)
[2019-01-24] MEDS: Donepezil HCl 10 MG TAB PO SCH (08:30)
[2019-01-24] MEDS: Acyclovir 200 mg Capsule PO SCH ×3 (08:30→21:51)
[2019-01-24] MEDS: Aspirin 325 MG TAB PO SCH (08:30)
[2019-01-24] MEDS: Potassium Chloride 10 MEQ TAB PO SCH ×2 (08:31→17:17)
[2019-01-24] MEDS: Amlodipine 5 MG TAB PO SCH (08:31)
[2019-01-24] MEDS: Clotrimazole 1% Cream 15 GM TUBE TOP SCH ×2 (08:31→21:34)
[2019-01-24] MEDS: EUCERIN CREME 57 GRAM TUBE TP SCH (08:31)
--- NOTE | 2019-01-24 09:00 | PRG ---
DATE OF SERVICE: 01/24/2019 SUBJECTIVE: The patient said she is feeling better. She is walking up to 20 feet with a rolling walker. Her wounds were improving. OBJECTIVE: GENERAL: The patient is sitting up in a chair. She is alert and talkative, looks much better. Appears in no distress. VITAL SIGNS: Shows a temperature 97.3, pulse 59, respirations 16, O2 saturation 97% on room air, blood pressure 122/64. LUNGS: Clear. HEART: Regular rate. EXTREMITIES: No edema. Dressings in feet are dry and clean. ASSESSMENT: 1. Generalized weakness and deconditioning. a. Improved. Walking up to 20 feet 2 times a day with her 4-wheeled walker and minimum assistance. Transferring with minimal assistance as of 2018. 2. Osteomyelitis of the right fifth toe and metatarsal head. a. Status post amputation of the toe and the head of the fifth metatarsal on 12/27/[address] Paramjit Mcintosh, group leader. b. Healing by secondary intention with the aid of a wound VAC. c. Completed 2-week course of amoxicillin and Diflucan. d. Wound clean and gradually improving as of 01/24/2019. 3. Osteomyelitis of the left great toe and metatarsal head requiring: a. Status post amputation of the left great toe and metatarsal head on 03/11. b. Healing by secondary intention. c. The wound is clean and gradually getting smaller as of 01/24/2019. 4. Alzheimer dementia. a. Complicated by episodes of apathy and minimal responsiveness. b. Marked improvement where she is alert and interactive and in no distress as of the morning of 12/31/2018. c. Stable with no behavioral issues as of 01/24/2019. 5. Hypertension. a. Controlled as of 01/24/2019. 6. Chronic renal disease. a. Creatinine down to 1.23 and GFR 42 on 01/11/2019. b. GFR up to 51 as of 01/17/2019. 7. Peripheral neuropathy. a. Presently asymptomatic. 8. Spondylosis of the LS spine. 9. Herpes simplex, intermittent. a. Acute outbreak over the low back as of 01/01/2019. b. Healing as of 01/17/2019. 10. C diff colitis. a. C diff antigen and toxin positive reported back on the evening of 2018. b. Two-week course of vancomycin started on 01/16/19. c. Diarrhea resolved as of 01/20/2019. d. Asymptomatic as of 01/24/2019. He is on day 9 of 14 of vancomycin. PLAN: Continue present care. Continue PT. Job ID: [id number] MTDD
[2019-01-24] MEDS ORDERED: Sodium Chloride Irrig Solution 250 ML BOT ONE (10:56)
[2019-01-24] MEDS ORDERED: Sterile Water Irrigation 250 ML BOT ONE (10:56)
[2019-01-24] MEDS: Atorvastatin Calcium 40 MG TAB PO SCH (21:32)
[2019-01-24] MEDS ORDERED: Acyclovir 200 mg Capsule PO SCH (21:45)
[2019-01-25] MEDS: EUCERIN CREME 57 GRAM TUBE TP SCH ×3 (02:53→21:15)
[2019-01-25] MEDS: Vancomycin HCl 25 MG/ML Oral PO SCH ×4 (03:28→21:12)
[2019-01-25] MEDS: Amlodipine 5 MG TAB PO SCH (08:31)
[2019-01-25] MEDS: Aspirin 325 MG TAB PO SCH (08:31)
[2019-01-25] MEDS: Potassium Chloride 10 MEQ TAB PO SCH ×2 (08:31→17:34)
[2019-01-25] MEDS: Donepezil HCl 10 MG TAB PO SCH (08:31)
[2019-01-25] MEDS: Clotrimazole 1% Cream 15 GM TUBE TOP SCH ×2 (08:32→21:15)
[2019-01-25] MEDS: Acyclovir 200 mg Capsule PO SCH ×2 (08:43→21:16)
--- NOTE | 2019-01-25 10:08 | PRG ---
DATE OF SERVICE: 01/25/2019 SUBJECTIVE: The patient said she is feeling better. She had no complaint. She is doing better with physical therapy. Yesterday walked up to 60 feet twice with her four-wheel walker and supervision. Transferring better with just standby assistance. OBJECTIVE: GENERAL: The patient is sitting up in her geriatric chair. She is alert. Appears in no distress. VITAL SIGNS: Her temperature 97, pulse 63, respirations 16, O2 saturation 97% on room air, and blood pressure 120/61. LUNGS: Clear. HEART: Regular rate. EXTREMITIES: No edema. Wounds were reported by physical therapy as improving and very clean. ASSESSMENT: 1. Generalized weakness and deconditioning. a. Improved. Walking up to 60 feet 2 times a day with her four-wheel walker and minimum assistance. Transferring with minimal assistance as of 2018. 2. Osteomyelitis of the right fifth toe and metatarsal head. a. Status post amputation of the toe and the head of the fifth metatarsal on 12/27/[address] Paramjit Mcintosh, automation tech. b. Healing by secondary intention with the aid of a wound VAC. c. Completed 2-week course of amoxicillin and Diflucan. d. Wound clean and gradually improving as of 01/25/2019. 3. Osteomyelitis of the left great toe and metatarsal head requiring: a. Status post amputation of the left great toe and metatarsal head on 03/11. b. Healing by secondary intention. c. The wound is clean and gradually getting smaller as of 01/25/2019. 4. Alzheimer dementia. a. Complicated by episodes of apathy and minimal responsiveness. b. Marked improvement where she is alert and interactive and in no distress as of the morning of 12/31/2018. c. Stable with no behavioral issues as of 01/25/2019. 5. Hypertension. a. Controlled as of 01/25/2019. 6. Chronic renal disease. a. Creatinine down to 1.23 and GFR 42 on 01/11/2019. b. GFR up to 51 as of 01/17/2019. 7. Peripheral neuropathy. a. Presently asymptomatic. 8. Spondylosis of the LS spine. 9. Herpes simplex, intermittent. a. Acute outbreak over the low back as of 01/01/2019. b. Healing as of 01/17/2019. 10. C diff colitis. a. C diff antigen and toxin positive reported back on the evening of 2018. b. Two-week course of vancomycin started on 01/16/19. c. Diarrhea resolved as of 01/20/2019.d. Asymptomatic as of 01/24/2019. d. Asymptomatic as of 01/25/2019. On day 10 of 14 days of vancomycin p.o. PLAN: Continue present wound care. Continue PT. Job ID: [id number] MTDD
[2019-01-25] MEDS: Atorvastatin Calcium 40 MG TAB PO SCH (21:12)
[2019-01-25] MEDS ORDERED: Acyclovir 200 mg Capsule PO SCH (21:15)
[2019-01-26] MEDS: Vancomycin HCl 25 MG/ML Oral PO SCH ×4 (03:30→20:31)
[2019-01-26] MEDS: Aspirin 325 MG TAB PO SCH (08:43)
[2019-01-26] MEDS: Acyclovir 200 mg Capsule PO SCH ×2 (08:43→20:32)
[2019-01-26] MEDS: Donepezil HCl 10 MG TAB PO SCH (08:43)
[2019-01-26] MEDS: Amlodipine 5 MG TAB PO SCH (08:43)
[2019-01-26] MEDS: Potassium Chloride 10 MEQ TAB PO SCH ×2 (08:43→16:45)
[2019-01-26] MEDS: Clotrimazole 1% Cream 15 GM TUBE TOP SCH ×2 (08:44→20:33)
[2019-01-26] MEDS: EUCERIN CREME 57 GRAM TUBE TP SCH ×2 (08:44→20:33)
--- NOTE | 2019-01-26 12:01 | PRG ---
DATE OF SERVICE: 01/26/2019 SUBJECTIVE: The patient says she is doing better. Yesterday, she said she had a good workout with Physical Therapy. She walked up to 55 feet already this morning. She has been walking up to 60 feet a couple of times a day with her four-wheeled walker and supervision, and was transferring with just caregiver assist. OBJECTIVE: GENERAL: The patient is sitting up in her geriatric chair. She is alert and talkative. Looks in no distress. She looks much improved. VITAL SIGNS: Her temperature is 96.8, pulse is 63, respirations 18, O2 saturation 100% on room air, blood pressure 154/67. LUNGS: Clear. HEART: Regular rate. EXTREMITIES: No edema. Yesterday, her wound was changed on the right foot and the wound looks excellent. There is no surrounding erythema. The wound has excellent granulation base, is much more shallow and smaller. ASSESSMENT: 1. Generalized weakness and deconditioning. a. Improved. Walking up to 60 feet 2 times a day with her four-wheel walker and minimum assistance. Transferring with minimal assistance as of 2018. 2. Osteomyelitis of the right fifth toe and metatarsal head. a. Status post amputation of the toe and the head of the fifth metatarsal on 12/27/[address] Paramjit Mcintosh, sign poster. b. Healing by secondary intention with the aid of a wound VAC. c. Completed 2-week course of amoxicillin and Diflucan. d. Wound is clean with excellent granulation bed. No surrounding erythema and smaller from pictures reviewed from wound change on 01/25/2019. 3. Osteomyelitis of the left great toe and metatarsal head requiring: a. Status post amputation of the left great toe and metatarsal head on 03/11. b. Healing by secondary intention. c. The wound is clean and gradually getting smaller as of 01/26/2019. 4. Alzheimer dementia. a. Complicated by episodes of apathy and minimal responsiveness. b. Marked improvement where she is alert and interactive and in no distress as of the morning of 12/31/2018. c. Stable with no behavioral issues as of 01/26/2019. 5. Hypertension. a. Controlled as of 01/25/2019. 6. Chronic renal disease. a. Creatinine down to 1.23 and GFR 42 on 01/11/2019. b. GFR up to 51 as of 01/17/2019. 7. Peripheral neuropathy. a. Presently asymptomatic. 8. Spondylosis of the LS spine. 9. Herpes simplex, intermittent. a. Acute outbreak over the low back as of 01/01/2019. b. Healing as of 01/17/2019. 10. C diff colitis. a. C diff antigen and toxin positive reported back on the evening of 2018. b. Two-week course of vancomycin started on 01/16/19. c. Diarrhea resolved as of 01/20/2019.d. Asymptomatic as of 01/24/2019. d. Asymptomatic as of 01/26/2019. On day 11 of 14 days of vancomycin p.o. PLAN: Continue present wound care. Continue PT. The patient is scheduled to see a sign poster, who did the surgery on her right foot, is scheduled for 01/27/2019. Job ID: [id number] MTDD
[2019-01-26 20:01] VITALS: TEMP 97.3
[2019-01-26] MEDS: Acetaminophen 325 MG TAB PO PRN (20:31)
[2019-01-26] MEDS: Atorvastatin Calcium 40 MG TAB PO SCH (20:31)
[2019-01-27] MEDS: Vancomycin HCl 25 MG/ML Oral PO SCH ×2 (02:37→07:59)
[2019-01-27] MEDS: Potassium Chloride 10 MEQ TAB PO SCH (07:58)
[2019-01-27] MEDS: Aspirin 325 MG TAB PO SCH (08:00)
[2019-01-27] MEDS: Donepezil HCl 10 MG TAB PO SCH (08:00)
[2019-01-27] MEDS: Acyclovir 200 mg Capsule PO SCH (08:00)
[2019-01-27] MEDS: Amlodipine 5 MG TAB PO SCH (08:01)
[2019-01-27] MEDS: Clotrimazole 1% Cream 15 GM TUBE TOP SCH (08:02)
[2019-01-27 08:03] VITALS: BP 140/60
[2019-01-27] MEDS: EUCERIN CREME 57 GRAM TUBE TP SCH (08:03)
--- NOTE | 2019-01-28 11:36 | DIS ---
DATE OF ADMISSION: 12/30/2018 DATE OF DISCHARGE: 01/27/2019 FINAL DIAGNOSES: 1. Generalized weakness and deconditioning. a. Improved. Walking up to 125 feet with her four-wheeled walker and minimal assistance. Transferring with minimal assistance as of 01/27/2019. 2. Osteomyelitis of the right fifth toe and metatarsal head. a. Status post amputation of the toe and the head of the fifth metatarsal on 12/27/[address] Paramjit Mcintosh, lay out machine operator. b. Healing by secondary intention with the aid of a wound VAC. c. Completed 2-week course of amoxicillin and Diflucan. d. Wound is clean with excellent granulation bed. No surrounding erythema and smaller from pictures reviewed from wound change on 01/25/2019. 3. Osteomyelitis of the left great toe and metatarsal head requiring: a. Status post amputation of the left great toe and metatarsal head on 2017. b. Healing by secondary intention. c. The wound is clean and gradually getting smaller as of 01/26/2019. 4. Alzheimer dementia. a. Complicated by episodes of apathy and minimal responsiveness. b. Marked improvement where she is alert and interactive and in no distress as of the morning of 12/31/2018. c. Stable with no behavioral issues as of 01/26/2019. 5. Hypertension. a. Controlled as of 01/25/2019. 6. Chronic renal disease. a. Creatinine down to 1.23 and GFR 42 on 01/11/2019. b. GFR up to 51 as of 01/17/2019. 7. Peripheral neuropathy. a. Presently asymptomatic. 8. Spondylosis of the LS spine. 9. Herpes simplex, intermittent. a. Acute outbreak over the low back as of 01/01/2019. b. Healing as of 01/17/2019. 10. C diff colitis. a. C diff antigen and toxin positive reported back on the evening of 2018. b. Two-week course of vancomycin started on 01/16/19. c. Diarrhea resolved as of 01/20/2019.d. Asymptomatic as of 01/24/2019. d. Asymptomatic as of 01/27/2019. On day 12 of 14-day course of vancomycin p.o. SUMMARY: The patient is a 78-year-old white female, who has a history of Alzheimer disease, hypertension, chronic renal disease, peripheral neuropathy, spondylosis of her LS spine. The patient had developed osteomyelitis of her left great toe and metatarsal head requiring amputation of the great toe and metatarsal head on 03/11/2018. Wound was gradually healing by secondary intention and had gradually closed to approximately 1.5 cm wound. She then developed an osteomyelitis of the right fifth toe and metatarsal head and required amputation of the toe in the head of fifth metatarsal on 12/27/2018 by her lay out machine operator, Dr. Paramjit Mcintosh. This wound was left open and with the intent to heal by secondary intention with the aid of a wound VAC. The patient was transferred to [facility] on 12/30/2018 for wound care and strengthening exercise. She had had a marked decline in her general strength, deconditioning, and gait abnormality, particularly with the recent amputation of the right fifth toe and the application of the wound VAC to that foot. HOSPITAL COURSE: When the patient first arrived at the hospital, she seemed very withdrawn and would not speak and seemed frightened gradually with reassurance. She became interactive and begin working with the nursing staff and begin working with Physical Therapy. She had been placed on a 2-week course of amoxicillin and then Diflucan for the cellulitis of the right foot, which she completed during her hospitalization. The wounds were clean, and then, a wound VAC applied to the right foot. The left foot wound was clean and Medihoney applied and then overlying Mepilex and these dressings were changed on Wednesday, Wednesday, and Wednesday. The left foot continued to improve with gradual decrease in the size and a good clean base. The right foot, the area wound markedly improved throughout her hospitalization. She developed a very excellent bed of granulation tissue, where the wound bed was just about up to the rest of the skin edge. The surrounding skin looked excellent with no redness and showed excellent signs of healing. With her Alzheimer's, she had episodes where she was a little bit more confused and forgetful, but she had no more episodes, where she was very apathetic and withdrawn. She gradually got back to her usual baseline six days before her discharge. She was taken out on a pass to her home by her family and this worked out very well and seemed to really give her an uplift in her spirits. During her hospital stay, she had developed a diarrhea that was very malodorous. The C. diff antigen and toxin were positive. The patient was placed on vancomycin 125 mg four times a day for 14-day cycle. During this time, the diarrhea resolved. She was placed in isolation with this infection, but the symptoms all resolved. She had completed 12 of 14-day course by the time of her discharge on 01/27. The patient was scheduled to see Dr. Paramjit Mcintosh, her lay out machine operator, who had done the amputation on the morning of 01/27/2019. They will be seeing him and he will determine whether or not, she needs to continue the wound VAC. If she does, [facility] will miner pick on this care with a wound VAC. Otherwise, we will also miner pick their care for dressing changes and physical therapy. At the time of her discharge, she was ambulating up to 125 feet with a rolling four-wheeled walker with just standby assistance was transferring with minimal assistance. Her condition improved such as family felt very comfortable managing her home and planned to take her home on 01/27/[address] Mcintosh. DISPOSITION: 1. Diet: Regular diet, no added salt. 2. Activities: Ambulate with her four-wheeled walker. Wound care to the left foot, clean with saline, apply Medihoney and then an overlying Mepilex dressing. This maybe changed on Wednesday, Wednesday, and Wednesday. The right foot, wound care had been cleansing with saline and application of a wound VAC on these dressing changes on Wednesday, Wednesday, and Wednesday. The patient is seeing Dr. Mcintosh and will follow his recommendations on wound care. MEDICATIONS: 1. Acetaminophen 325 mg two every 4 hours as needed for pain. 2. Acyclovir 400 mg b.i.d. 3. Amlodipine 5 mg daily. 4. Aspirin 325 mg daily. 5. Atorvastatin 40 mg daily. 6. Pepto-Bismol 30 mL t.i.d. p.r.n. 7. Clotrimazole cream applied to skin fold areas for redness b.i.d. p.r.n. 8. Cardizem CD 120 mg daily. 9. Aricept 10 mg daily. 10. Namenda 5 mg daily. 11. Vancomycin 125 mg q.i.d. x2 days. FOLLOWUP: Home [facility] with [facility] will see the patient for wound care as outlined above and also for PT and OT. The patient will see her lay out machine operator in followup this morning, 01/27/2019, and as he recommends afterwards, we will schedule to see the patient in my office in 2 weeks with CBC and basic metabolic panel. CODE STATUS: DNR. Job ID: [id number] MTDD
== END 2019-01-27 11:20 | disposition home or self-care (01) | DRG 948 ==
LOC: MADMS 12-30 16:28
PROVIDERS: ADMIT Family Medicine; ATTEND Family Medicine
DX: R53.1 Weakness (principal); A04.72 Enterocolitis due to Clostridium difficile, not specified as recurrent; Z47.81 Encounter for orthopedic aftercare following surgical amputation; I48.0 Paroxysmal atrial fibrillation; G30.9 Alzheimer's disease, unspecified; F02.80 Dementia in other diseases classified elsewhere, unspecified severity, without behavioral disturbance, psychotic disturbance, mood disturbance, and anxiety; Z89.421 Acquired absence of other right toe(s); G89.29 Other chronic pain; K21.9 Gastro-esophageal reflux disease without esophagitis; E66.9 Obesity, unspecified; G47.00 Insomnia, unspecified; Z90.49 Acquired absence of other specified parts of digestive tract; Z95.5 Presence of coronary angioplasty implant and graft; Z79.82 Long term (current) use of aspirin; Z88.5 Allergy status to narcotic agent; Z88.6 Allergy status to analgesic agent; Z88.8 Allergy status to other drugs, medicaments and biological substances; Z86.711 Personal history of pulmonary embolism; Z86.718 Personal history of other venous thrombosis and embolism; Z68.33 Body mass index [BMI] 33.0-33.9, adult; M47.817 Spondylosis without myelopathy or radiculopathy, lumbosacral region; B00.9 Herpesviral infection, unspecified; R45.3 Demoralization and apathy; G62.9 Polyneuropathy, unspecified; I12.9 Hypertensive chronic kidney disease with stage 1 through stage 4 chronic kidney disease, or unspecified chronic kidney disease; N18.9 Chronic kidney disease, unspecified
CPT/HCPCS: 36415; 80048; 80053; 85025; 87324; 87449; 87493

== ENCOUNTER 2019-02-24 11:47 | Outpatient (CLI) | payer MEDICARE ==
--- NOTE | 2019-02-24 13:26 | RAD ---
4 VIEWS RIGHT KNEE: Date: 02/24/19 COMPARISON: None. HISTORY: Evaluate right knee joint effusion. FINDINGS: There is a total knee arthroplasty on the right. No evidence for hardware failure. No acute fracture or dislocation. There is a small/moderate nonspecific right knee joint effusion suspected given increased soft tissue density in the suprapatellar bursa and slight anterior deviation of the patellar tendon. IMPRESSION: Probable knee joint effusion. No associated fracture or dislocation. POS: OFF
== END 2019-02-24 11:48 | disposition home or self-care (01) ==
LOC: MADRAD 11:47
PROVIDERS: ATTEND Family Medicine
DX: M25.461 Effusion, right knee (principal)

== ENCOUNTER 2019-05-04 11:53 | Inpatient (IN) | payer MEDICARE ==
[2019-05-04 12:39] LABS: #Basophils 0.1 thou/uL (0.0-0.2); #Lymphocytes 0.2 thou/uL (1.20-3.40); #Monocytes 0.3 thou/uL (0.11-0.59); #Neutrophils 13.7 thou/uL (1.40-6.50); %Basophils 0.7 % (0.0-1.0); %Lymphocytes 1.3 % (21.0-51.0); %Monocytes 2.4 % (0.0-10.0); %Neutrophils 95.7 % (42.0-75.0); Hemoglobin 11.9 g/dL (12.0-16.0); Mean Corpuscular HGB CONC 30.1 g/dL (32.0-36.0); Mean Corpuscular Hemoglobin 28.7 pg (27.0-31.0); Mean Corpuscular Volume 95.1 fL (78.0-98.0); Mean Platelet Volume 7.9 fL (7.4-10.4); Platelet Count 175 thou/uL (130-400); RBC Distribution Width 13.6 % (11.5-14.5); Red Blood Cell (RBC) Count 4.14 mill/uL (4.20-5.40); White Blood Cell (WBC) Count 14.3 thou/uL (4.8-10.8)
--- NOTE | 2019-05-04 12:39 | RAD ---
Chest one view HISTORY: Fever. COMPARISON: 06/01/2018. FINDINGS: Cardiac silhouette remains magnified, enlarged, and partially obscured by an elevated right hemidiaphragm is unchanged in appearance. Pulmonary vasculature is engorged and accentuated by shallow inspiration. No lobar consolidation or e vidence of pneumothorax. Degenerative changes left shoulder. Postoperative changes right shoulder. IMPRESSION: Cardiomegaly with mild pulmonary vascular congestion. Chronic-type findings are stable. No abnormalities are demonstrated to explain fever.
[2019-05-04 12:58] LABS: ALT (SGPT) 16 U/L (8-55); AST (SGOT) 21 U/L (5-34); Albumin 3.7 g/dL (3.4-4.8); Alkaline Phosphatase 106 U/L (40-110); Anion Gap 17 mmol/L (10-20); BUN (Urea Nitrogen) 18 mg/dL (9.8-20.1); Bilirubin, Total 0.8 mg/dL (0.2-1.2); Calc. Creatinine Clearance 0 mL/min (70-130); Calcium 9.3 mg/dL (7.8-10.44); Carbon Dioxide 19 mmol/L (23-31); Chloride 108 mmol/L (98-107); Estimated GFR-MDRD 54; Globulin 2.7 g/dL (2.4-3.5); Glucose 141 mg/dL (83-110); Potassium 3.8 mmol/L (3.5-5.1); Protein, Total 6.4 g/dL (6.0-8.3); Sodium 140 mmol/L (136-145)
[2019-05-04 13:05] LABS: Bilirubin Negative (Negative); Blood, Urine Small (Negative); Glucose, Urine (Dipstick) Negative (Negative); Leukocyte Small (Negative); Nitrite Positive (Negative); Protein, Urine (Dipstick) 30 mg/dL (Neg-Trace); Urobilinogen 0.2 mg/dL (Less than 2)
[2019-05-04 13:06] LABS: Bacteria/HPF 3+ HPF (None Seen); Clarity Hazy (Clear); RBC/HPF 0-3 HPF (0-3); Squamous Epithelial 0-3 HPF (0-3); WBC/HPF Greater than 50 HPF (0-3)
[2019-05-04] MEDS ORDERED: Sodium Chloride 0.9% 100 ML ONE (13:18)
[2019-05-04] MEDS ORDERED: Piperacillin/Tazobactam 4.5 GM VIAL ONE (13:18)
[2019-05-04] MEDS ORDERED: Enoxaparin Sodium 40 MG/0.4 ML SYRINGE ONE (14:55)
[2019-05-04] MEDS ORDERED: Ondansetron ODT 4 MG TAB PO PRN (15:38)
[2019-05-04] MEDS ORDERED: Acetaminophen 325 MG TAB PO PRN (15:38)
[2019-05-04] MEDS ORDERED: Enoxaparin Sodium 40 MG/0.4 ML SYRINGE SC SCH (15:45)
[2019-05-04 16:23] LABS: Lactic Acid 2.4 mmol/L (0.5-2.2)
[2019-05-04 18:02] VITALS: BMI 37.8
[2019-05-04] MEDS: Piperacillin/Tazobactam 4.5 GM in Sodium Chloride 0.9% 100 ML IVPB SCH (18:03)
[2019-05-04] MEDS: Atorvastatin Calcium 40 MG TAB PO SCH (20:32)
[2019-05-04] MEDS: Acyclovir 200 mg Capsule PO SCH (20:32)
[2019-05-04] MEDS: Donepezil HCl 10 MG TAB PO SCH (20:33)
[2019-05-04] MEDS: Acetaminophen 325 MG TAB PO PRN (20:34)
[2019-05-04] MEDS: Melatonin 3 MG TAB PO SCH (20:34)
[2019-05-05] MEDS: Piperacillin/Tazobactam 4.5 GM in Sodium Chloride 0.9% 100 ML IVPB SCH ×4 (00:48→17:59)
[2019-05-05 06:17] LABS: Anion Gap 15 mmol/L (10-20); BUN (Urea Nitrogen) 14 mg/dL (9.8-20.1); Calc. Creatinine Clearance 76 mL/min (70-130); Calcium 8.7 mg/dL (7.8-10.44); Carbon Dioxide 25 mmol/L (23-31); Chloride 107 mmol/L (98-107); Estimated GFR-MDRD 50; Glucose 122 mg/dL (83-110); Sodium 143 mmol/L (136-145)
[2019-05-05 06:18] LABS: Band 20 % (5-11); Hemoglobin 11.5 g/dL (12.0-16.0); Lymphocytes 5 % (21-51); MDiff Complete? YES; Mean Corpuscular HGB CONC 30.8 g/dL (32.0-36.0); Mean Corpuscular Hemoglobin 28.8 pg (27.0-31.0); Mean Corpuscular Volume 93.5 fL (78.0-98.0); Monocytes 2 % (0-10); Neutrophil 73 % (42-75); Platelet Count 166 thou/uL (130-400); RBC Distribution Width 13.5 % (11.5-14.5); Red Blood Cell (RBC) Count 3.98 mill/uL (4.20-5.40); White Blood Cell (WBC) Count 11.4 thou/uL (4.8-10.8)
--- NOTE | 2019-05-05 07:16 | HP ---
CHIEF COMPLAINT: Fever. HISTORY OF PRESENT ILLNESS: The patient is a 78-year-old white female, who has a history of Alzheimer's disease, hypertension, chronic renal disease, peripheral neuropathy of the lower extremities, spondylosis of the LS spine, and paroxysmal atrial fibrillation. She has a history of osteomyelitis of the left great toe that required amputation and amputation of the metatarsal head that is all healing by secondary intention very gradually. She also required amputation of the right fifth toe for osteomyelitis, which is healed. She lives at home, where she is attended by her and son and utydqcnm-gu-fjg. She is able to walk with her walker some within the house. She has some problems with urinary incontinence and gradually increasing memory difficulty and intermittent confusion. I visited with the patient's emmwtpmw-wn-clh, Rosa, who said that the evening prior to admission, she became more confused than usual. Her face was very flushed and she was hot to the touch and had a temperature of 103. Her uewsrsrn-zq-xvp said, who is a nurse, examined her and said that her lungs were clear. Her feet looked about the same. She had developed over the last few weeks a decubitus over the left heel that has a little drainage, but no increased redness. She checked the dip urine on her, that was positive for nitrites and that was positive for leukocytes. She was treated with Tylenol. Her fever came down. The confusion seemed to go back to her baseline, the following morning. The day of admission , she was still running a low-grade fever. She was brought to the emergency room. There, she was evaluated, underwent chest x-ray, which showed poor inspiratory effort with chronic elevation of the right hemidiaphragm. No definite infiltrate. Stable appearing chest x-ray compared to previous x-rays. LABORATORY DATA: Her labs showed an H and H of 11.9 and 39.4. The white cell count of 14,300 with 96% segs, 1% lymphocytes, and a platelet count of 175,000. Sodium 140, potassium 3.8, BUN 18, creatinine 1.0, GFR 54, and glucose 141. Lactic acid 2.6. Troponin I 0.021. Her urine showed specific gravity of 1.025, nitrite was positive, wbc's were greater than 50, rbc's 0 to 3, and epithelial cells 0 to 3 with 3+ bacteria. In the emergency room, the patient was started on some IV fluids, had blood cultures, urine culture obtained and then was started on IV Levaquin and Zosyn and was admitted to the hospital with a diagnosis with urinary tract infection. The patient was seen soon after her admission to her room. Her ebunjwyj-kl-bfp, Rosa Navarro was in attendance and was able to review the history of recent illness. The patient could not give much historical information. The patient presently under the care of Dr. Lamar, a dental manager for ongoing care of her feet. PAST HISTORY: Last hospitalization was at [facility] in extended care from 12/30 until 01/27/2019 for general weakness and deconditioning. She had been hospitalized at [facility] for osteomyelitis of the right fifth toe and the head of fifth metatarsal. She underwent amputation of the right fifth toe and head of fifth metatarsal on 12/27/2018, that area has healed by secondary intention. She also had osteomyelitis of the left great toe and metatarsal head requiring amputation of the great toe and metatarsal head on 03/11/2018. The wound is healed except for small opening to the medial aspect of the distal foot. There is no drainage or redness. The patient has Alzheimer's dementia, hypertension, chronic renal disease, peripheral neuropathy of the lower extremity, spondylosis of the LS spine, herpes simplex intermittent, paroxysmal atrial fibrillation. The patient DVT of the left leg in 2011, pulmonary embolism, underwent inferior vena cava filtration device placement in 2014. She has a ventral hernia that is not incarcerated and obesity. She has been treated in the past for C diff infections. She has undergone a right rotator cuff repair in 2002 and 1998. She had a bariatric surgical procedure, where her stomach was stapled in 1981, later this was taken down in 1984. She has had a VAN, hemorrhoidectomy, cholecystectomy, left heart catheterization in 2013 showed no significant coronary artery disease, venous insufficiency of the lower extremities, and hyperlipidemia. She also has a history of macular degeneration. S/P bilateral total knee replacemet. PRESENT MEDICINES: 1. Acyclovir 400 mg b.i.d. 2. Cardizem CD 120 mg daily. 3. Atorvastatin 20 mg at bedtime. 4. Omeprazole 20 mg daily. 5. Donepezil 5 mg daily. 6. Aspirin 325 mg daily. 7. Namenda 5 mg daily. 8. Eye vitamins AREDS for macular degeneration one b.i.d. 9. Zyrtec 10 mg daily. 10. Vitamin D3 of 5000 units daily. 11. Melatonin 3 mg at bedtime. 12. Flonase 2 respiration each nostrum daily. ALLERGIES: MORPHINE, CODEINE, MELOXICAM UPSETS HER STOMACH, MECLIZINE INCREASES VERTIGINOUS SYMPTOMS. REVIEW OF SYSTEMS: GENERAL: This was assisted with by the patient's xgcjijny-kz-cai and the patient. No recent weight gain or loss. VITAL SIGNS: Temperature on the evening prior to admission of 103. HEAD AND NECK: No complaints. PULMONARY: No cough. No shortness of breath. CARDIOVASCULAR: No chest pain. GI: No nausea, vomiting, or change in her bowel habits. : The patient is incontinent of urine. SKIN: The patient has developed a decubitus over the left heel with little drainage. The wound from the amputation of the right fifth toe is healed. Amputation site of left great toe is healed except for small area just on the medial aspect of the first metatarsal. These are being followed by Dr. Lamar, dental manager. NEUROPSYCHIATRIC: The patient has problems with short-term memory and episodes of confusion. HABITS: Alcohol, none. Tobacco, none. ADLs: The patient is incontinent of urine. The patient able to feed herself. The patient is able to walk within the house with her walker. SOCIAL HISTORY: The patient lives at home with her and son, Grzegorz and yrovjhqh-je-zrq, Rosa, all assist with her care as needed. CODE STATUS: Full code. PHYSICAL EXAMINATION: GENERAL: Shows a 78-year-old white female, who is lying in bed. She looks comfortable. She is talkative and appears in no acute distress. VITAL SIGNS: Show a temperature of 98.4, pulse 76, respirations 18, O2 saturation 97% on room air, and blood pressure 166/71. Her weight is 241. HEENT: Her head is normocephalic and atraumatic. Ears, left TM clear. Right TM obscured by cerumen. Eyes, pupils are equal, round, and reactive. Sclerae are nonicteric. Nose normal. Mouth and throat, normal. NECK: Carotids are equal and strong. No bruits. Thyroid not enlarged. LUNGS: Clear. HEART: Regular rate. No murmurs. ABDOMEN: Soft. No organomegaly. No areas of tenderness. BACK: There is no CVA tenderness. EXTREMITIES: There is no edema. There is no calf tenderness. The right lower leg is little larger than the left, which is her chronic. Right foot, the right fifth toe has been amputated. The wound is completely healed. Left foot, the patient has had an amputation of the great toe in the first metatarsal head. This area has all healed other than a scab and just on the medial aspect of the distal first metatarsal, there is a small opening that is less than 7 mm and probably 5 mm deep with a yellowish base. There is no surrounding redness. On the heel of the left foot, there is a decubitus that look like had an overlying blister that has ruptured. There is a little slightly mucoid base. There is some surrounding little purpleness to this tissue. There is no surrounding redness and the foot area was nontender. NEUROLOGIC: The patient is alert and disoriented to place and person. She has generalized weakness that is nonfocal. IMPRESSION: 1. Urinary tract infection/pyelonephritis. a. Complicated by possible sepsis. Hemodynamically she is stable. Blood cultures had been started and IV antibiotics started. 2. ALZHEIMER disease. a. Complicated by increased confusion with the onset of the fever on the evening of 05/03/2019. 3. Hypertension. 4. Paroxysmal atrial fibrillation. 5. Chronic kidney disease. a. GFR on 05/04 at 19:54. 6. Peripheral neuropathy of the lower extremities. 7. History of osteomyelitis of the right fifth toe. a. Status post amputation of the fifth toe and head of fifth metatarsal, . b. Healed. 8. Osteomyelitis of the left great toe and metatarsal head. a. Status post amputation of the left great toe and metatarsal head on 03/11. b. All healed except for tiny wound on the medial aspect of the distal first metatarsal portion of the foot. 9. Decubitus ulcer of the left heel. 10. Herpes simplex infection. a. Intermittent outbreaks. b. Controlled with acyclovir. 11. Weakness. 12. Gait abnormality. a. Stabilized with walker. 13. Obesity. 14. History of pulmonary embolism and deep venous thrombosis of the left leg in 2011. a. Status post placement of an inferior vena cava filtration device in 2014. PLAN: The patient has been admitted to the hospital here per the family's request. She has had blood and urine cultures obtained. She has been started on IV Levaquin and Zosyn for this probable upper urinary tract infection/pyelonephritis that may be complicated by a bacteremia. Presently, she is hemodynamically stable. We will continue her routine medicines. We will place her on DVT prophylaxis with Lovenox. Care of the foot, offload the heels. Clean the wounds with saline daily. Apply a calcium alginate pad and cover with Mepilex. Once the patient is little up, we will allow the patient up in a chair as tolerated. We will have PT evaluate her in the morning and OT. Code status at present is full. Job ID: [id number] MTDD
[2019-05-05] MEDS: Loratadine 10 MG TAB PO SCH (08:18)
[2019-05-05] MEDS: Acyclovir 200 mg Capsule PO SCH ×2 (08:18→21:13)
[2019-05-05] MEDS: Aspirin 325 MG TAB PO SCH (08:18)
[2019-05-05] MEDS: Enoxaparin Sodium 40 MG/0.4 ML SYRINGE SC SCH (08:19)
[2019-05-05] MEDS: Fluticasone Propionate Nasal Spray 16 gm Bottle NASAL SCH (08:20)
[2019-05-05] MEDS ORDERED: FLU VACC TS2019-20(65YR UP)/PF 180 MCG/0.5 ML SYRINGE IM ONE (09:00)
[2019-05-05 12:19] LABS: Hemoglobin A1c 5.7 % (4.0-6.0)
[2019-05-05] MEDS: Atorvastatin Calcium 40 MG TAB PO SCH (21:13)
[2019-05-05] MEDS: Donepezil HCl 10 MG TAB PO SCH (21:14)
[2019-05-05] MEDS: Melatonin 3 MG TAB PO SCH (21:15)
[2019-05-05] MEDS: Acetaminophen 325 MG TAB PO PRN (21:18)
[2019-05-06] MEDS: Piperacillin/Tazobactam 4.5 GM in Sodium Chloride 0.9% 100 ML IVPB SCH ×4 (00:47→17:46)
[2019-05-06] MEDS: Acyclovir 200 mg Capsule PO SCH ×2 (08:39→21:14)
[2019-05-06] MEDS: Aspirin 325 MG TAB PO SCH (08:40)
[2019-05-06] MEDS: Enoxaparin Sodium 40 MG/0.4 ML SYRINGE SC SCH (08:40)
[2019-05-06] MEDS: Loratadine 10 MG TAB PO SCH (08:40)
[2019-05-06] MEDS: Fluticasone Propionate Nasal Spray 16 gm Bottle NASAL SCH (08:41)
[2019-05-06] MEDS: Atorvastatin Calcium 40 MG TAB PO SCH (21:15)
[2019-05-06] MEDS: Donepezil HCl 10 MG TAB PO SCH (21:16)
[2019-05-06] MEDS: Acetaminophen 325 MG TAB PO PRN (21:17)
[2019-05-06] MEDS: Melatonin 3 MG TAB PO SCH (21:17)
[2019-05-07] MEDS: Piperacillin/Tazobactam 4.5 GM in Sodium Chloride 0.9% 100 ML IVPB SCH ×2 (00:34→06:06)
[2019-05-07] MEDS: Acyclovir 200 mg Capsule PO SCH (08:18)
[2019-05-07] MEDS: Enoxaparin Sodium 40 MG/0.4 ML SYRINGE SC SCH (08:18)
[2019-05-07] MEDS: Loratadine 10 MG TAB PO SCH (08:18)
[2019-05-07] MEDS: Aspirin 325 MG TAB PO SCH (08:19)
[2019-05-07] MEDS: Fluticasone Propionate Nasal Spray 16 gm Bottle NASAL SCH (08:19)
[2019-05-07 11:15] VITALS: BP 143/69; TEMP 97.8
[2019-05-07] MEDS ORDERED: Cipro 250 MG TAB PO SCH (20:00)
--- NOTE | 2019-05-08 09:48 | DIS ---
DATE OF ADMISSION: 05/04/2019 DATE OF DISCHARGE: 05/07/2019 ATTENDING/PRIMARY CARE PHYSICIAN: Angel Boone MD DISCHARGE PHYSICIAN: Gisela Jacobo MD REASON FOR ADMISSION: Increased confusion, fever. DISPOSITION: Home with family. CONDITION ON DISCHARGE: Stable. FINAL DIAGNOSES: 1. Urinary tract infection, complicated. 2. Reactive confusion, multifactorial. 3. Acute febrile illness. Sepsis was ruled out with negative blood cultures. 4. Alzheimer dementia, late onset with behavioral disturbances. 5. Hypertension. SECONDARY DIAGNOSES: 1. Paroxysmal atrial fib, rate controlled. 2. Chronic kidney disease. 3. Peripheral neuropathy of the lower extremities. 4. History of osteomyelitis of the right toe, status post amputation of the fifth and head of the fifth metatarsal, 12/27/2018, healed. 5. Osteomyelitis of the left great toe and metatarsal head, status post amputation of the left great toe and metatarsal head on 03/11/2019, all healed except for tiny wound in the medial aspect of the distal first metatarsal portion of the foot. 6. Decubitus ulcer of the left heel. 7. Herpes infection with intermittent outbreaks, controlled with long-term use of acyclovir. 8. General weakness with gait abnormality, stabilized with walker. 9. History of pulmonary embolism and deep venous thrombosis of the left leg in 2011, status post placement of inferior vena cava infiltration device in 2014. HOME MEDICATIONS: 1. Cipro 250 mg p.o. b.i.d. 2. Donepezil 5 mg p.o. b.i.d. 3. Diltiazem 120 mg p.o. daily. 4. Cholecalciferol (vitamin D) 5000 oral daily. 5. Omeprazole 20 mg daily. 6. Memantine 5 mg p.o. daily. 7. Aspirin 325 mg daily. 8. Acetaminophen 650 mg p.o. q.6 hours p.r.n. 9. Pepto-Bismol liquid 30 mL three times as needed. 10. Acyclovir 400 mg twice daily. 11. Atorvastatin 20 mg p.o. at bedtime. 12. Fluticasone two sprays each nostril daily. 13. Melatonin 3 mg p.o. at bedtime. 14. Zyrtec 10 mg p.o. daily. DIET: As tolerated. ACTIVITY: To use rolling walker at all times. FOLLOWUP: 1. Followup up with Dr. Boone in 1 week or sooner with concern. 2. Continue Home Health Services for wound care with guardian per family's request. To have PT and OT evaluation and treat once discharge. 3. Follow up with cupola liner as previously scheduled. HISTORY OF THE PRESENT ILLNESS AND HOSPITAL COURSE: Ms. Navarro is a very pleasant 78-year-old female with multiple chronic medical conditions including alzheimer disease, late onset; hypertension, PAD of both legs with chronic slow healing decubitus ulcer of the left heel, with history of osteomyelitis requiring amputations of the right great toe and right fifth toe. The patient was in her usual state of health when she developed increased confusion more than the usual. This was associated with a temperature of 103. Initial evaluation in the ER showed leukocytosis of 14,300 with some left shift. Lactic acid elevated to 2.6. Her urine showed nitrite positive and significant pyuria, greater than 50 and bacteria 3+. Upon presentation in emergency room, she was given IV fluids and IV Levaquin and Zosyn were initiated for complicated UTI, possible sepsis. The patient was subsequently admitted to [facility] and current medications were continued. Her chest x-ray showed stable chronic-type findings, but no acute abnormality noted to explain fever. The patient did well over the hospital course. She has been febrile free since admission. She remained hemodynamically stable. Her white count trended down to 11.4 on 05/05/2019. Lactic acid has trended down to normal level at 1.4 on 05/05/2019 as well. Over the course of hospitalization, the patient has become more awake and alert. She has started walking some with the use of rolling walker per PT. Over the weekend, staff reported significant confusion/agitation in the form of sundowning behaviors. Family requested to be discharged on 05/07/2019, with apparent concern the patient may become more agitated in a new environment, requesting to be discharged back home. The patient's cultures came back with negative blood x2 and negative urine. The patient remained febrile free with no evidence of occult bacteremia noted. She was discharged on 05/07/2019 in a stable condition. Prior to discharge, the patient was transferring on herself with standby assist and walks to the bathroom back and forth to her bed on her own. The patient just required verbal cuing and redirection. Had a lengthy discussion with the family member as represented by her lfxgfspv-mt-xpm, Rosa Navarro prior to discharge. Both nursing staff and family were agreeable that the patient is stable to get back home with / supervision. VITAL SIGNS: Prior to discharge; blood pressure 143/69, temperature 97.8, pulse 86, respirations 16, O2 saturations 95% at room air. Weight 241 pounds and 1 ounce. Height 5 feet 7 inches. TIME SPENT: Time spent in this discharge and examining the patient, coordinating care, and discussion with the family, 32 minutes. Job ID: [id number] MTDD
--- NOTE | 2019-05-09 06:08 | PQF ---
[employer] TITUS Marques ALIYA THRASHER MD [id number] CLINICAL DOCUMENTATION CLARIFICATION FORM: POST DISCHARGE Addendum to original discharge summary date: 05/07/19 Late entry note date: 05/11/19 DATE: 05/09/2019 ATTN: ALIYA THRASHER MD Please exercise your independent, professional judgment in responding to the clarification form. Clinical indicators are provided on the bottom of this form for your review Please check appropriate box(s): I (concur) with the Wound Care findings as stated below. [ X] Pressure Ulcer: (Stage I: Erythema; Stage II: Partial thickness; Stage III : Full thickness; Stage IV: Necrosis to muscle/bone) [ ] Location: ___Left HEEL__POA: [ ] Yes [ ] No[ ] Unable to determine Stage (I to IV): (Left Right Bilateral N/A ) [ ] Other diagnosis [ ] Unable to determine In addition, please specify: Present on Admission (POA): [ X] Yes [ ] No [ ] Unable to determine For continuity of documentation, please document condition throughout progress notes and discharge summary. Thank You. CLINICAL INDICATORS - SIGNS / SYMPTOMS / LABS Left Heel Decubitus ulcer - Documented in H&P on 05/04 by Mely Ortiz MD Status post amputation of toe - Documented in H&P on 05/04 by Mely Ortiz MD Patient with chronic ulcer - Documented in ED report pg#7 1.5*1.5cm shallow ulceration that also clean and try - Documented in ED report pg#8 RISK FACTORS: UTI -Documented in H&P on 05/04 by Mely Ortiz MD HTN - Documented in H&P on 05/04 by Mely Ortiz MD Paroxysmal Afib - Documented in H&P on 05/04 by Mely Ortiz MD TREATMENTS: IV antibiotics dressing were placed - Documented in ED report pg#8 [employer] Reports [employer] (This form is maintained as a part of the permanent medical record) 2014 [employer], [employer]. All Rights Reserved [email or web address] [not provided] MTDD
--- NOTE | 2019-05-09 06:22 | PQF ---
[employer] Crystal Reports TITUS Marques ALIYA THRASHER MD [id number] CLINICAL DOCUMENTATION CLARIFICATION FORM: POST DISCHARGE Addendum to original discharge summary date: 05/07/19 Late entry note date: 05/11/19 DATE: 05/09/2019 ATTN: ALIYA THRASHER MD Please exercise your independent, professional judgment in responding to the clarification form. Clinical indicators are provided on the bottom of this form for your review Please check appropriate box(es): Kindly clarify whether during this admission Sepsis was being treated or Not [ /] Sepsis was being treated this admission [ ] Sepsis was not being treated this admission [ / ] Other diagnosis :____Sepsis was ruled out with negative blood cultures ( )Unable to determine In addition, please specify: Present on Admission (POA): [ ] Yes [ ] No [ ] Unable to determine For continuity of documentation, please document condition throughout progress notes and discharge summary. Thank You. CLINICAL INDICATORS - SIGNS / SYMPTOMS / LABS fever - Documented in H&P on 05/04 by Mely Ortiz intermittent confusion - Documented in H&P on 05/04 by Mely Ortiz WBC-14,300 with 90%segs - Documented in H&P on 05/04 by Mely Ortiz lactic acid 2.6 - Documented in H&P on 05/04 by Mely Ortiz UTI -complicated by possible sepsis , blood cultures had been started & IV abx started -Documented in H&P on 05/04 by Mely Ortiz Probable upper UTI/pyelonephritis that may be complicated by a bacteremia - Documented in H&P on 05/04 by Mely Ortiz Lactic acid has trended down to 1.4 on 05/05 - Documented in DS on 05/08 by ALIYA THRASHER MD RISK FACTORS UTI - Documented in H&P on 05/04 by Mely Ortiz HTN - Documented in H&P on 05/04 by Mely Ortiz Paroxysmal Afib - Documented in H&P on 05/04 by Mely Ortiz Herpes simplex infection - Documented in H&P on 05/04 by Mely Ortiz TREATMENTS: IV antibiotics - Documented in H&P on 05/04 by Mely Ortiz Livaquin 750mg IVPB - Medication report (This form is maintained as a part of the permanent medical record) 2014 [email or web address], [employer]. All Rights Reserved [email or web address] [not provided] MTDD
== END 2019-05-07 14:19 | disposition home health service (06) | DRG 690 ==
LOC: MADERS 11:53 → MADMS 14:20
PROVIDERS: ADMIT Family Medicine; ATTEND Family Medicine
DX: N39.0 Urinary tract infection, site not specified (principal); I12.9 Hypertensive chronic kidney disease with stage 1 through stage 4 chronic kidney disease, or unspecified chronic kidney disease; N18.9 Chronic kidney disease, unspecified; I48.0 Paroxysmal atrial fibrillation; Z89.412 Acquired absence of left great toe; Z96.653 Presence of artificial knee joint, bilateral; Z90.49 Acquired absence of other specified parts of digestive tract; Z79.82 Long term (current) use of aspirin; Z88.5 Allergy status to narcotic agent; G30.9 Alzheimer's disease, unspecified; F02.80 Dementia in other diseases classified elsewhere, unspecified severity, without behavioral disturbance, psychotic disturbance, mood disturbance, and anxiety; G62.9 Polyneuropathy, unspecified; B00.9 Herpesviral infection, unspecified; L89.629 Pressure ulcer of left heel, unspecified stage; E66.9 Obesity, unspecified; R26.9 Unspecified abnormalities of gait and mobility; G30.1 Alzheimer's disease with late onset; M47.9 Spondylosis, unspecified
CPT/HCPCS: 36415; 51701; 71045; 80048; 80053; 81003; 81015; 83036; 83605; 84484; 85025; 87040; 87086; 90471; 90662; 94760; 96365; 96367; 96372; A4353; G0008; J1650; J1956; J2543; J3490

== ENCOUNTER 2019-06-28 23:51 | Emergency (ER) | payer MEDICARE ==
[~2019-06-28 23:51] MED LIST: Sulfameth/Trimethoprim DS 800-160mg TAB ONE
[2019-06-29 00:40] LABS: #Basophils 0.1 thou/uL (0.0-0.2); #Eosinphils 0.1 thou/uL (0.0-0.7); #Lymphocytes 0.8 thou/uL (1.20-3.40); #Monocytes 0.9 thou/uL (0.11-0.59); #Neutrophils 13.6 thou/uL (1.40-6.50); %Basophils 0.5 % (0.0-1.0); %Eosinophils 0.6 % (0.0-10.0); %Monocytes 5.6 % (0.0-10.0); %Neutrophils 88.4 % (42.0-75.0); Hemoglobin 12.7 g/dL (12.0-16.0); Mean Corpuscular HGB CONC 29.6 g/dL (32.0-36.0); Mean Corpuscular Volume 94.6 fL (78.0-98.0); Mean Platelet Volume 8.8 fL (7.4-10.4); Platelet Count 139 thou/uL (130-400); RBC Distribution Width 14.9 % (11.5-14.5); Red Blood Cell (RBC) Count 4.54 mill/uL (4.20-5.40); White Blood Cell (WBC) Count 15.4 thou/uL (4.8-10.8)
[2019-06-29 00:57] LABS: ALT (SGPT) 8 U/L (8-55); AST (SGOT) 13 U/L (5-34); Albumin 3.9 g/dL (3.4-4.8); Alkaline Phosphatase 97 U/L (40-110); Anion Gap 19 mmol/L (10-20); BUN (Urea Nitrogen) 27 mg/dL (9.8-20.1); Bilirubin, Total 0.5 mg/dL (0.2-1.2); Calc. Creatinine Clearance 0 mL/min (70-130); Calcium 9.2 mg/dL (7.8-10.44); Carbon Dioxide 16 mmol/L (23-31); Chloride 112 mmol/L (98-107); Estimated GFR-MDRD 34; Globulin 3.4 g/dL (2.4-3.5); Glucose 136 mg/dL (83-110); Potassium 3.9 mmol/L (3.5-5.1); Protein, Total 7.3 g/dL (6.0-8.3); Sodium 143 mmol/L (136-145)
[2019-06-29 01:13] LABS: Bilirubin Negative (Negative); Blood, Urine Trace (Negative); Clarity Slightly Cloudy (Clear); Glucose, Urine (Dipstick) Negative (Negative); Leukocyte Trace (Negative); Nitrite Negative (Negative); Protein, Urine (Dipstick) 100 mg/dL (Neg-Trace); Urobilinogen 0.2 mg/dL (Less than 2)
[2019-06-29 01:15] LABS: Bacteria/HPF 1+ HPF (None Seen); Squamous Epithelial 0-3 HPF (0-3)
[2019-06-29] MEDS ORDERED: Sulfameth/Trimethoprim DS 800-160mg TAB ONE (01:59)
--- NOTE | 2019-06-29 07:59 | RAD ---
Chest AP view INDICATION: Syncope COMPARISON: May 04, 2019 single view chest radiograph FINDINGS: Lungs:The lungs are clear Cardiac silhouette:Stable mild cardiomegaly Pulmonary vasculature:Normal Pleural spaces:No pleural effusion or pneumothorax is demonstrated. Upper abdomen:No abnormality seen. Osseous structures: Stable postsurgical change of a right rotator cuff repair. No acute fracture or s ubluxation demonstrated. Additional findings:None. IMPRESSION: No acute cardiopulmonary abnormality.
== END 2019-06-29 02:00 | disposition home or self-care (01) ==
LOC: MADERS 23:51
DX: I95.1 Orthostatic hypotension (principal); N39.0 Urinary tract infection, site not specified; N28.9 Disorder of kidney and ureter, unspecified; F03.90 Unspecified dementia, unspecified severity, without behavioral disturbance, psychotic disturbance, mood disturbance, and anxiety; G62.9 Polyneuropathy, unspecified; K21.9 Gastro-esophageal reflux disease without esophagitis; I48.91 Unspecified atrial fibrillation; I49.9 Cardiac arrhythmia, unspecified; Z79.82 Long term (current) use of aspirin; Z79.899 Other long term (current) drug therapy; Z79.01 Long term (current) use of anticoagulants
CPT/HCPCS: 36415; 51701; 71045; 80053; 81003; 81015; 83605; 84484; 85025; 93005; A4353

== ENCOUNTER 2019-07-04 18:35 | Inpatient (IN) | payer MEDICARE ==
[2019-07-04] MEDS ORDERED: Ciprofloxacin 500 MG TAB PO SCH (21:00)
[2019-07-04] MEDS ORDERED: Donepezil HCl 10 MG TAB PO SCH (21:30)
[2019-07-04] MEDS: Atorvastatin Calcium 40 MG TAB PO SCH (21:43)
[2019-07-04] MEDS: Acyclovir 200 mg Capsule PO SCH (21:43)
[2019-07-04] MEDS: Melatonin 3 MG TAB PO SCH (21:45)
[2019-07-05] MEDS: Ciprofloxacin 500 MG TAB PO SCH ×2 (05:50→20:31)
[2019-07-05 05:55] LABS: #Basophils 0.1 thou/uL (0.0-0.2); #Eosinphils 0.2 thou/uL (0.0-0.7); #Lymphocytes 0.6 thou/uL (1.20-3.40); #Monocytes 0.9 thou/uL (0.11-0.59); #Neutrophils 8.9 thou/uL (1.40-6.50); %Basophils 1.1 % (0.0-1.0); %Eosinophils 1.8 % (0.0-10.0); %Lymphocytes 5.8 % (21.0-51.0); %Monocytes 8.2 % (0.0-10.0); %Neutrophils 83.1 % (42.0-75.0); Hemoglobin 10.5 g/dL (12.0-16.0); Mean Corpuscular HGB CONC 30.8 g/dL (32.0-36.0); Mean Corpuscular Hemoglobin 27.6 pg (27.0-31.0); Mean Corpuscular Volume 89.9 fL (78.0-98.0); Mean Platelet Volume 8.6 fL (7.4-10.4); Platelet Count 184 thou/uL (130-400); RBC Distribution Width 14.6 % (11.5-14.5); Red Blood Cell (RBC) Count 3.81 mill/uL (4.20-5.40); White Blood Cell (WBC) Count 10.7 thou/uL (4.8-10.8)
[2019-07-05 06:12] LABS: ALT (SGPT) 10 U/L (8-55); AST (SGOT) 13 U/L (5-34); Albumin 3.7 g/dL (3.4-4.8); Alkaline Phosphatase 89 U/L (40-110); Anion Gap 16 mmol/L (10-20); BUN (Urea Nitrogen) 16 mg/dL (9.8-20.1); Bilirubin, Total 0.8 mg/dL (0.2-1.2); Calc. Creatinine Clearance 80 mL/min (70-130); Calcium 9.5 mg/dL (7.8-10.44); Carbon Dioxide 22 mmol/L (23-31); Chloride 107 mmol/L (98-107); Estimated GFR-MDRD 54; Globulin 3.2 g/dL (2.4-3.5); Glucose 120 mg/dL (83-110); Potassium 4.2 mmol/L (3.5-5.1); Protein, Total 6.9 g/dL (6.0-8.3); Sodium 141 mmol/L (136-145)
[2019-07-05] MEDS: Acyclovir 200 mg Capsule PO SCH ×2 (08:59→20:30)
[2019-07-05] MEDS ORDERED: Prevnar 13-Val Conj/PF 0.5 ML SYRINGE IM ONE (09:00)
[2019-07-05] MEDS: Fluticasone Propionate Nasal Spray 16 gm Bottle NASAL SCH (09:00)
[2019-07-05] MEDS: Loratadine 10 MG TAB PO SCH (09:00)
[2019-07-05] MEDS: Aspirin 325 MG TAB PO SCH (09:00)
[2019-07-05] MEDS: Polyethylene Glycol 3350 17 GM Packet PO SCH (09:00)
[2019-07-05] MEDS: Donepezil HCl 10 MG TAB PO SCH (20:30)
[2019-07-05] MEDS: Melatonin 3 MG TAB PO SCH (20:30)
[2019-07-05] MEDS: Atorvastatin Calcium 40 MG TAB PO SCH (20:31)
[2019-07-06] MEDS: Ciprofloxacin 500 MG TAB PO SCH ×2 (05:37→21:00)
--- NOTE | 2019-07-06 07:29 | HP ---
CHIEF COMPLAINT: Weak following hospitalization for urinary tract infection. HISTORY OF PRESENT ILLNESS: The patient is a 79-year-old white female, who has a history of Alzheimer disease, hypertension, chronic renal disease, peripheral neuropathy of the lower extremity, spondylosis of the LS spine, and paroxysmal atrial fibrillation. She has had a history of osteomyelitis of the left great toe that required amputation and amputation of the metatarsal head with the wound all healing by secondary intention and almost totally healed. She had also had amputation of her right fifth toe that has healed. The patient lives at home, where her family assists her with her ADLs. The patient was hospitalized at [facility] from 06/30 until 07/04/2019 for acute metabolic encephalopathy secondary to urinary tract infection. The patient was brought to the emergency room there because of severe increase in weakness, increased bilateral swelling, and increased confusion. Her blood cultures had no growth. Her urine culture had no growth. The encephalopathy improved. She was treated with IV antibiotics and then switched to Cipro with instructions to stay on this for an additional four days. Her swelling improved in the lower extremities with elevation and oral diuretics. She was still very weak. She had a decubitus that had developed over her left heel. She was referred to [facility] due to the severe weakness such that she could not be managed at home and for wound care of the left heel. The patient arrived to the hospital in the early evening of 07/04/2019. The patient was seen early on the morning of 07/05/2019. The patient was alert and talkative, but was still confused and could not tell me what had occurred or even where she was. She did not have though any particular complaint. PAST MEDICAL HISTORY: Hospitalized at [facility] from 06/30 until 07/04/2019, for acute metabolic encephalopathy with urinary tract infection, increased swelling in the lower extremities, and marked weakness such that she was requiring assistance with all her ADLs. Hospitalized at [facility] from 05/04 until 05/07/2019 for urinary tract infection with reactive confusion. The patient had osteomyelitis of her right fifth toe and head of the fifth metatarsal. She underwent amputation of the right fifth toe and head of the fifth metatarsal on 12/27/2018. The areas all healed by secondary intention. She developed osteomyelitis of the left great toe and metatarsal head requiring amputation on 03/11/2018. The wound has gradually healed with only a small opening by secondary intention. The patient has Alzheimer disease, hypertension, chronic renal disease, peripheral neuropathy of the lower extremities, spondylosis of the LS spine, herpes simplex with intermittent outbreaks, paroxysmal atrial fibrillation, history of DVT of the left leg in 2011 with pulmonary embolism, underwent inferior vena caval filtration device placement in 07/2014. She has had a ventral hernia that is not incarcerated. She has been treated in the past for C diff infection. She has had a right rotator cuff repair in 2002 and in 1998. She has had bariatric surgical procedure with the stomach stapled in 1981, this was later taken down in 1984. The patient has had a VAN, hemorrhoidectomy, cholecystectomy, left heart catheterization in 2013 showed no significant coronary artery disease, venous insufficiency of the lower extremities, hyperlipidemia, macular degeneration, and bilateral total knee replacement. PRESENT MEDICATIONS: 1. Acyclovir 400 mg b.i.d. 2. Aspirin 325 mg daily. 3. Lipitor 20 mg daily. 4. Zyrtec 10 mg daily. 5. Vitamin D3 of 5000 units daily. 6. Cardizem CD 120 mg daily. 7. Fluticasone two sprays in each nostril daily. 8. Melatonin 3 mg at bedtime. 9. Namenda 5 mg daily. 10. Omeprazole 20 mg daily. 11. Cipro 500 mg for 4 additional days, beginning on 07/04. 12. Aricept 5 mg at bedtime. 13. MiraLAX 17 g in 8 ounces of water daily. ALLERGIES: MORPHINE, CODEINE, MELOXICAM UPSETS STOMACH, AND MECLIZINE INCREASES VERTIGINOUS SYMPTOMS. REVIEW OF SYSTEMS: The patient not able to give a good review of system due to her dementia and confusion. The patient requires assistance with her ADLs. The patient has been much weaker than usual. Has not been up walking since her recent hospitalization. HABITS: Alcohol, none. Tobacco, none. SOCIAL HISTORY: The patient is . The patient lives at home with her , who assists with her care. She has son and [id number], who live very close and also assists with her care. PHYSICAL EXAMINATION: GENERAL: Shows a 79-year-old white female, who is lying in bed. She is awake and talkative, but could not understand a lot of what she said. She was disoriented to place and situation. VITAL SIGNS: Show a temperature of 96.9, pulse 80, respirations 18, O2 saturation 98% on room air, blood pressure 179/79. Her weight is 243. HEENT: Head, normocephalic and atraumatic. Eyes, pupils are equal, round, and reactive. Sclerae nonicteric. Nose normal. Mouth and throat normal. NECK: Carotids are equal and strong. No bruits. LUNGS: Clear. HEART: Regular rate. No murmurs. ABDOMEN: Obese with no organomegaly. No areas of tenderness. EXTREMITIES: Trace edema, right foot. The patient has had an amputation of the 5th digit metatarsal head, areas healed, left foot. The patient has had an amputation of the great toe and metatarsal head. This areas all healed except for a small separation of the skin along an old incision. This is no more than 7 mm in diameter. Over the left heel, there is a full-thickness decubitus with some black eschar partially over the wound and some mucoid necrotic tissue on the base. The wound measures about 2 cm in diameter. NEUROLOGIC: The patient has generalized weakness that is nonfocal. She is alert, talkative, but could not understand all of what she says. She is disoriented to time, place, and situation. IMPRESSION: 1. Generalized weakness and deconditioning. a. Following hospitalization for acute metabolic encephalopathy with urinary tract infection. 2. Hospitalized at [facility] from 06/30 to 07/04/2019 for acute metabolic encephalopathy with urinary tract infection. 3. Alzheimer dementia. a. Progressive. b. Complicated by increased confusion and disorientation secondary to recent urinary tract infection. 4. Hypertension. 5. Paroxysmal atrial fibrillation. 6. Chronic kidney disease. 7. Peripheral neuropathy of the lower extremities. 8. History of osteomyelitis of the right fifth toe. a. Status post amputation of the right fifth toe and head of the fifth metatarsal on 12/27/2018. b. Healed. 9. Osteomyelitis of the left great toe and metatarsal head. a. Status post amputation of the left great toe and metatarsal head on 03/11. b. All healed except tiny wound on the medial aspect of the distal first metatarsal portion of the foot. 10. Decubitus ulcer of the left heel. a. Noted on exam on 05/04/2019. b. Not healing. 11. Herpes simplex infection. a. Intermittent outbreaks. 12. History of pulmonary embolism and deep venous thrombosis of the left leg in 2011. a. Status post placement of an inferior vena cava filtration device in 2014. 13. Obesity. PLAN: The patient has been admitted to [facility] for completion of the antibiotics, for PT/OT in an effort to try to improve her strength and deconditioning and general functional capabilities and wound care to the left heel. Hopefully, the increased confusion will continue to improve as she gets more distant from the recent UTI. CODE STATUS: Full code. Job ID: [id number] MTDD
[2019-07-06] MEDS: Polyethylene Glycol 3350 17 GM Packet PO SCH (08:31)
[2019-07-06] MEDS: Aspirin 325 MG TAB PO SCH (08:32)
[2019-07-06] MEDS: Acyclovir 200 mg Capsule PO SCH ×2 (08:32→21:20)
[2019-07-06] MEDS: Fluticasone Propionate Nasal Spray 16 gm Bottle NASAL SCH (08:33)
[2019-07-06] MEDS: Loratadine 10 MG TAB PO SCH (08:33)
--- NOTE | 2019-07-06 09:10 | PRG ---
DATE OF SERVICE: 07/06/2019 SUBJECTIVE: The patient is up in a geriatric chair. She was alert, a little talkative, but still confused, some of this is her baseline from the dementia. OBJECTIVE: VITAL SIGNS: Show a temperature of 97.9, pulse 73, respirations 16 , O2 saturation 97%, and blood pressure 131/72. LUNGS: Clear. HEART: Regular rate. EXTREMITIES: No edema. Dressings are on the left foot. ASSESSMENT: 1. Generalized weakness and deconditioning. a. Following hospitalization for acute metabolic encephalopathy with urinary tract infection. b. Up in a chair. PT/OT working with her as of 07/06. 2. Hospitalized at [facility] from 06/30/2019 to 07/04/2019 for acute metabolic encephalopathy with urinary tract infection. 3. Alzheimer dementia. a. Progressive. b. Complicated by increased confusion and secondary to recent urinary tract infection, improving as of 07/06. 4. Hypertension. 5. Paroxysmal atrial fibrillation. 6. Chronic kidney disease. 7. Peripheral neuropathy of the lower extremities. 8. History of osteoarthritis of the right fifth toe. a. Status post amputation of the right fifth toe and head of the fifth metatarsal on 12/27/2018. b. Healed. 9. Osteomyelitis of the left great toe and metatarsal head. a. Status post amputation of the left great toe and metatarsal head on 2018. b. All healed, but a small area on the medial aspect of the distal first metatarsal portion of the foot. 10. Decubitus ulcer of the left heel. a. Noted on April 2019. b. Very slow healing. 11. Herpes simplex infection. a. Intermittent outbreaks. 12. History of pulmonary embolism and deep venous thrombosis of the left leg, 2011. a. Status post placement of an inferior vena cava filtration device, 2014. 13. Obesity. PLAN: Continue present care. The patient's [id number] asked me to shift the Namenda to bedtime, taking in the morning tends to make her a little sleepy, this will be done. Job ID: [id number] MTDD
[2019-07-06] MEDS: Atorvastatin Calcium 40 MG TAB PO SCH (21:17)
[2019-07-06] MEDS: Acetaminophen 325 MG TAB PO PRN (21:17)
[2019-07-06] MEDS: Donepezil HCl 10 MG TAB PO SCH (21:18)
[2019-07-06] MEDS: Melatonin 3 MG TAB PO SCH (21:19)
[2019-07-07] MEDS: Ciprofloxacin 500 MG TAB PO SCH ×2 (05:38→20:08)
[2019-07-07] MEDS: Aspirin 325 MG TAB PO SCH (08:43)
[2019-07-07] MEDS: Loratadine 10 MG TAB PO SCH (08:43)
[2019-07-07] MEDS: Polyethylene Glycol 3350 17 GM Packet PO SCH (08:43)
[2019-07-07] MEDS: Acyclovir 200 mg Capsule PO SCH ×2 (08:43→20:08)
[2019-07-07] MEDS: Fluticasone Propionate Nasal Spray 16 gm Bottle NASAL SCH (08:44)
[2019-07-07] MEDS: Atorvastatin Calcium 40 MG TAB PO SCH (20:09)
[2019-07-07] MEDS: Donepezil HCl 10 MG TAB PO SCH (20:10)
[2019-07-07] MEDS: Melatonin 3 MG TAB PO SCH (20:11)
[2019-07-08] MEDS: Ciprofloxacin 500 MG TAB PO SCH ×2 (05:34→20:37)
[2019-07-08] MEDS: Polyethylene Glycol 3350 17 GM Packet PO SCH (08:44)
[2019-07-08] MEDS: Acyclovir 200 mg Capsule PO SCH ×2 (08:44→20:37)
[2019-07-08] MEDS: Aspirin 325 MG TAB PO SCH (08:44)
[2019-07-08] MEDS: Fluticasone Propionate Nasal Spray 16 gm Bottle NASAL SCH (08:45)
[2019-07-08] MEDS: Loratadine 10 MG TAB PO SCH (08:45)
[2019-07-08] MEDS: Donepezil HCl 10 MG TAB PO SCH (20:38)
[2019-07-08] MEDS: Atorvastatin Calcium 40 MG TAB PO SCH (20:39)
[2019-07-08] MEDS: Melatonin 3 MG TAB PO SCH (20:40)
[2019-07-09] MEDS: Ciprofloxacin 500 MG TAB PO SCH ×2 (06:18→20:15)
[2019-07-09] MEDS: Acetaminophen 325 MG TAB PO PRN (08:40)
[2019-07-09] MEDS: Acyclovir 200 mg Capsule PO SCH ×2 (08:40→20:24)
[2019-07-09] MEDS: Polyethylene Glycol 3350 17 GM Packet PO SCH (08:40)
[2019-07-09] MEDS: Loratadine 10 MG TAB PO SCH (08:41)
[2019-07-09] MEDS: Aspirin 325 MG TAB PO SCH (08:41)
[2019-07-09] MEDS: Fluticasone Propionate Nasal Spray 16 gm Bottle NASAL SCH (08:41)
[2019-07-09] MEDS: Atorvastatin Calcium 40 MG TAB PO SCH (20:16)
[2019-07-09] MEDS: Donepezil HCl 10 MG TAB PO SCH (20:16)
[2019-07-09] MEDS: Melatonin 3 MG TAB PO SCH (20:17)
[2019-07-10] MEDS: Ciprofloxacin 500 MG TAB PO SCH ×2 (05:09→20:10)
--- NOTE | 2019-07-10 07:38 | PRG ---
DATE OF SERVICE: 07/08/2019 SUBJECTIVE: This morning, the patient was sitting on the side of the bed and she was tearful, could not really understand much of what she was saying due to her confusion. OBJECTIVE: VITAL SIGNS: Show a temperature 97.4, pulse 77, respirations 20, O2 saturation 97% on room air, and blood pressure 134/63. LUNGS: Clear. HEART: Regular rate. ASSESSMENT: 1. Generalized weakness and deconditioning. a. Following hospitalization for acute metabolic encephalopathy with urinary tract infection. b. Strength is improved as of 07/08. 2. Hospitalized at [facility] from 06/30 until 07/04/2019 for acute metabolic encephalopathy with urinary tract infection. 3. Alzheimer's dementia. a. Progressive. b. Complicated by recent increased confusion secondary to urinary tract infection. 4. Hypertension. 5. Paroxysmal atrial fibrillation. 6. Chronic kidney disease. 7. Peripheral neuropathy of the lower extremity. 8. History of osteoarthritis of the right fifth toe. a. Status post amputation of the fifth toe and head of fifth metatarsal on 12/27/2018. b. Healed. 9. Osteomyelitis of the left great toe, metatarsal head. a. Status post amputation of the toe and metatarsal head on 03/11/2019. b. All healed, but a small area on the medial aspect of the distal first metatarsal portion of the foot. 10. Decubitus ulcer on the left heel. a. Noted in April 2019. b. Slowly healing. 11. Herpes simplex infection. a. Intermittent outbreaks. 12. History of pulmonary embolism and venous thrombosis of the left leg in 2011. a. Status post inferior vena cava filtration device in 2014. 13. Obesity. 14. Depression. PLAN: Continue present care. We will start the patient on sertraline 25 mg daily. Job ID: [id number] MTDD
[2019-07-10] MEDS: Polyethylene Glycol 3350 17 GM Packet PO SCH (09:00)
[2019-07-10] MEDS: Acetaminophen 325 MG TAB PO PRN (09:02)
[2019-07-10] MEDS: Loratadine 10 MG TAB PO SCH (09:02)
[2019-07-10] MEDS: Aspirin 325 MG TAB PO SCH (09:02)
[2019-07-10] MEDS: Fluticasone Propionate Nasal Spray 16 gm Bottle NASAL SCH (09:03)
[2019-07-10] MEDS: Acyclovir 200 mg Capsule PO SCH ×2 (09:03→20:10)
--- NOTE | 2019-07-10 11:12 | PRG ---
DATE OF SERVICE: 07/10/2019 SUBJECTIVE: The patient is lying in bed, alert. She tries to talk a little bit to me, can only understand a few words that she says. She looks comfortable, in no distress. OBJECTIVE: VITAL SIGNS: Show a temperature of 96.1, pulse 72, respirations 20 , O2 saturations 98%, and blood pressure 141/72. LUNGS: Clear. HEART: Regular rate. EXTREMITIES: Dressing on the left foot covering the decubitus over the heel. ASSESSMENT: 1. Generalized weakness and deconditioning. a. Following hospitalization for acute metabolic encephalopathy with urinary tract infection. b. Improving as of 07/10. 2. Hospitalized at [facility] from 06/30 until 07/04 for acute metabolic encephalopathy with urinary tract infection. 3. Alzheimer dementia. a. Progressive. b. Complicated by recent increased confusion secondary to the urinary tract infection. 4. Hypertension. 5. Paroxysmal atrial fibrillation. 6. Chronic kidney disease. 7. Peripheral neuropathy of the lower extremities. 8. History of osteomyelitis of the right fifth toe. a. Status post amputation of the fifth toe and head of fifth metatarsal on 12/27/2018. b. Healed. 9. Osteomyelitis of the left great toe and metatarsal head. a. Status post amputation of the toe and metatarsal head on 03/11/2019. b. Healed, but a tiny area on the medial aspect of the distal first metatarsal portion of the foot. 10. Decubitus ulcer of the left heel. a. Slowly improving. 11. Herpes simplex infection. a. Intermittent outbreaks. 12. History of pulmonary embolism and venous thrombosis of the left leg in 2011. a. Status post inferior vena cava filtration device in 2014. 13. Obesity. 14. Depression. PLAN: We will try increasing the Namenda to 10 mg and leave the Aricept 5 mg for now. Continue PT and OT. Job ID: [id number] MTDD
[2019-07-10] MEDS: Melatonin 3 MG TAB PO SCH (20:10)
[2019-07-10] MEDS: Donepezil HCl 10 MG TAB PO SCH (20:10)
[2019-07-10] MEDS: Atorvastatin Calcium 40 MG TAB PO SCH (20:10)
[2019-07-11] MEDS: Ciprofloxacin 500 MG TAB PO SCH ×2 (06:12→20:26)
[2019-07-11] MEDS: Fluticasone Propionate Nasal Spray 16 gm Bottle NASAL SCH (08:40)
[2019-07-11] MEDS: Polyethylene Glycol 3350 17 GM Packet PO SCH (08:40)
[2019-07-11] MEDS: Aspirin 325 MG TAB PO SCH (08:40)
[2019-07-11] MEDS: Loratadine 10 MG TAB PO SCH (08:41)
[2019-07-11] MEDS: Acyclovir 200 mg Capsule PO SCH ×2 (08:41→20:29)
--- NOTE | 2019-07-11 09:25 | PRG ---
DATE OF SERVICE: 07/11/2019 SUBJECTIVE: The patient is sitting up in bed, was a little more talkative this morning, could understand a little bit better what she was saying and she appears comfortable, in no distress. OBJECTIVE: VITAL SIGNS: Her temp is 97.9, pulse 75, respirations 16, O2 saturation 99% on room air, blood pressure 128/59. LUNGS: Clear. HEART: Regular rate. EXTREMITIES: No edema. ASSESSMENT: 1. Generalized weakness and deconditioning. a. Following hospitalization for acute metabolic encephalopathy with urinary tract infection. b. Improved as of 07/11. 2. Hospitalized at [facility] from 06/30 until 07/04 for acute metabolic encephalopathy with urinary tract infection. 3. Alzheimer's dementia. a. Progressive. b. Complicated by recent increased confusion secondary to urinary tract infection. 4. Hypertension. 5. Paroxysmal atrial fibrillation. 6. Chronic kidney disease. 7. History of osteomyelitis of the right fifth toe. a. Status post amputation of the fifth toe and metatarsal head on 2018. b. Healed. 8. Osteomyelitis of the left great toe on metatarsal head. a. Status post amputation of the toe and metatarsal head on 03/11/2019. b. Healed except for tiny area on the medial aspect of the distal first metatarsal. 9. Decubitus of the left heel. 10. Herpes simplex infection, intermittent outbreaks. 11. History of pulmonary embolism and venous thrombosis of the left leg in 2011. a. Status post inferior vena caval device in 2014. 12. Obesity. 13. Depression. PLAN: Continue present wound care. Continue PT and OT. Job ID: [id number] MTDD
[2019-07-11] MEDS: Atorvastatin Calcium 40 MG TAB PO SCH (20:26)
[2019-07-11] MEDS: Melatonin 3 MG TAB PO SCH (20:28)
[2019-07-11] MEDS: Donepezil HCl 10 MG TAB PO SCH (20:28)
[2019-07-12] MEDS: Ciprofloxacin 500 MG TAB PO SCH ×2 (05:50→21:25)
[2019-07-12] MEDS: Aspirin 325 MG TAB PO SCH (08:15)
[2019-07-12] MEDS: Loratadine 10 MG TAB PO SCH (08:15)
[2019-07-12] MEDS: Polyethylene Glycol 3350 17 GM Packet PO SCH (08:16)
[2019-07-12] MEDS: Acyclovir 200 mg Capsule PO SCH ×2 (08:19→21:25)
[2019-07-12] MEDS: Fluticasone Propionate Nasal Spray 16 gm Bottle NASAL SCH (08:24)
[2019-07-12] MEDS: Atorvastatin Calcium 40 MG TAB PO SCH (21:25)
[2019-07-12] MEDS: Donepezil HCl 10 MG TAB PO SCH (21:25)
[2019-07-12] MEDS: Melatonin 3 MG TAB PO SCH (21:25)
[2019-07-13] MEDS: Ciprofloxacin 500 MG TAB PO SCH (05:58)
[2019-07-13] MEDS: Loratadine 10 MG TAB PO SCH (08:23)
[2019-07-13] MEDS: Acyclovir 200 mg Capsule PO SCH ×2 (08:23→21:52)
[2019-07-13] MEDS: Fluticasone Propionate Nasal Spray 16 gm Bottle NASAL SCH (08:24)
[2019-07-13] MEDS: Aspirin 325 MG TAB PO SCH (08:24)
[2019-07-13] MEDS: Polyethylene Glycol 3350 17 GM Packet PO SCH (08:25)
--- NOTE | 2019-07-13 10:13 | PRG ---
DATE OF SERVICE: 07/13/2019 SUBJECTIVE: The patient is a little more interactive today. Can understand a little bit of what she is saying. She is working with Physical Therapy and walking about 25 feet with a rolling walker couple of times a day. She requires maximum assistance going from a sitting to a standing position. OBJECTIVE: GENERAL: The patient is alert, appears in no distress. VITAL SIGNS: Temperature 96, pulse 72, respirations 20, O2 saturations 98% on room air, blood pressure 148/73. LUNGS: Clear. HEART: Regular rate. EXTREMITIES: No edema in left heel. Ulceration has had a yellow brown necrotic tissue at the base. Wound is about 1.5 cm full thickness. ASSESSMENT: 1. Generalized weakness and deconditioning. a. Following hospitalization for acute metabolic encephalopathy with urinary tract infection. b. Improved. Walking up to 25 feet with a rolling walker two times a day as of 07/13. 2. Hospitalized at [facility] from 06/30 to 07/04 for acute metabolic encephalopathy with urinary tract infection. 3. Alzheimer dementia. a. Progressive. b. Complicated by recent increased confusion secondary to urinary tract infection. 4. Hypertension. 5. Paroxysmal atrial fibrillation. 6. Chronic kidney disease. 7. History of osteomyelitis of the right fifth toe. a. Status post amputation of the fifth toe and metatarsal head on 2018. b. Healed. 8. Osteomyelitis of the left great toe and metatarsal head. a. Status post amputation of the toe and metatarsal head, 03/11/2019. b. Healed except for tiny area on the medial aspect of the distal first metatarsal. 9. Decubitus of the left heel. 10. Herpes simplex infection, intermittent outbreaks, controlled. 11. History of pulmonary embolism and deep venous thrombosis of the left leg in 2011. a. Status post IVC filter device in 2014. 12. Obesity. 13. Depression. PLAN: Continue present care. Clean the heel and apply calcium alginate and cover with Mepilex. Continue PT and OT. Job ID: [id number] MTDD
[2019-07-13] MEDS: Atorvastatin Calcium 40 MG TAB PO SCH (21:52)
[2019-07-13] MEDS: Donepezil HCl 10 MG TAB PO SCH (21:53)
[2019-07-13] MEDS: Melatonin 3 MG TAB PO SCH (21:54)
[2019-07-14] MEDS: Polyethylene Glycol 3350 17 GM Packet PO SCH (08:59)
[2019-07-14] MEDS: Acetaminophen 325 MG TAB PO PRN (08:59)
[2019-07-14] MEDS: Fluticasone Propionate Nasal Spray 16 gm Bottle NASAL SCH (08:59)
[2019-07-14] MEDS: Acyclovir 200 mg Capsule PO SCH ×2 (09:00→20:54)
[2019-07-14] MEDS: Loratadine 10 MG TAB PO SCH (09:00)
[2019-07-14] MEDS: Aspirin 325 MG TAB PO SCH (09:00)
--- NOTE | 2019-07-14 12:21 | PRG ---
DATE OF SERVICE: 07/14/2019 SUBJECTIVE: The patient is sitting up in a geriatric chair. She is alert and more talkative, and I can understand more of what she is saying. She looks in no distress. She is working with Physical Therapy. Today, she has only walked a very few feet with her rolling walker less than what she was doing. OBJECTIVE: GENERAL: The patient is sitting up in a geriatric chair. She looks in no distress. She is smiling. VITAL SIGNS: Temperature 96.5, pulse 82, respirations 20, O2 sat 97% on room air, and blood pressure 107/54. LUNGS: Clear. HEART: Regular rate. EXTREMITIES: No edema. Wound on the left foot is slowly improving. ASSESSMENT: 1. Generalized weakness and deconditioning. a. Following hospitalization for acute metabolic encephalopathy with urinary tract infection. b. Improved, walking up to 25 feet with a rolling walker and assistance. 2. Hospitalized at [facility] from 06/30 to 07/04 for acute metabolic encephalopathy with urinary tract infection. 3. Alzheimer dementia. a. Progressive. b. Complicated by recent increased confusion secondary to urinary tract infection, that is improving. 4. Hypertension. 5. Paroxysmal atrial fibrillation. 6. Chronic kidney disease. 7. History of osteomyelitis of the right fifth toe. a. Status post amputation of the right fifth toe and metatarsal head on . b. Healed. 8. Osteomyelitis of the left great toe and metatarsal head. a. Status post amputation of the left great toe and metatarsal head on 03/11. b. Healed except for tiny area on the medial aspect of the distal right metatarsal. 9. Decubitus of the left heel. a. Gradually improving. 10. Herpes simplex infection, intermittent outbreaks controlled. 11. History of pulmonary embolism and deep venous thrombosis of the left leg in 2011. a. Status post inferior vena cava filter device in 2014. 12. Obesity. 13. Depression, improved. PLAN: Continue present care. Continue present wound care. Job ID: [id number] [facility]
[2019-07-14] MEDS: Atorvastatin Calcium 40 MG TAB PO SCH (20:54)
[2019-07-14] MEDS: Donepezil HCl 10 MG TAB PO SCH (20:55)
[2019-07-14] MEDS: Melatonin 3 MG TAB PO SCH (20:56)
[2019-07-15] MEDS: Aspirin 325 MG TAB PO SCH (08:13)
[2019-07-15] MEDS: Acyclovir 200 mg Capsule PO SCH ×2 (08:14→20:57)
[2019-07-15] MEDS: Fluticasone Propionate Nasal Spray 16 gm Bottle NASAL SCH (08:20)
[2019-07-15] MEDS: Loratadine 10 MG TAB PO SCH (08:20)
[2019-07-15] MEDS: Polyethylene Glycol 3350 17 GM Packet PO SCH (08:21)
[2019-07-15] MEDS: Melatonin 3 MG TAB PO SCH (20:54)
[2019-07-15] MEDS: Donepezil HCl 10 MG TAB PO SCH (20:54)
[2019-07-15] MEDS: Atorvastatin Calcium 40 MG TAB PO SCH (20:56)
[2019-07-16] MEDS: Acyclovir 200 mg Capsule PO SCH ×2 (08:36→21:16)
[2019-07-16] MEDS: Aspirin 325 MG TAB PO SCH (08:36)
[2019-07-16] MEDS: Polyethylene Glycol 3350 17 GM Packet PO SCH (08:38)
[2019-07-16] MEDS: Loratadine 10 MG TAB PO SCH (08:38)
[2019-07-16] MEDS: Fluticasone Propionate Nasal Spray 16 gm Bottle NASAL SCH (08:40)
[2019-07-16] MEDS: Atorvastatin Calcium 40 MG TAB PO SCH (21:17)
[2019-07-16] MEDS: Melatonin 3 MG TAB PO SCH (21:18)
[2019-07-16] MEDS: Donepezil HCl 10 MG TAB PO SCH (21:19)
[2019-07-17] MEDS: Fluticasone Propionate Nasal Spray 16 gm Bottle NASAL SCH (08:44)
[2019-07-17] MEDS: Polyethylene Glycol 3350 17 GM Packet PO SCH (08:45)
[2019-07-17] MEDS: Acyclovir 200 mg Capsule PO SCH ×2 (08:45→21:37)
[2019-07-17] MEDS: Aspirin 325 MG TAB PO SCH (08:46)
[2019-07-17] MEDS: Loratadine 10 MG TAB PO SCH (08:46)
--- NOTE | 2019-07-17 11:32 | PRG ---
DATE OF SERVICE: 07/17/2019 SUBJECTIVE: The patient says she is doing okay this morning. She had no complaint. OBJECTIVE: GENERAL: The patient is sitting up in bed, getting ready to get up. VITAL SIGNS: Her temperature is 96.4, pulse 74, respirations 18, O2 saturation 97% on room air, and blood pressure 129/62. LUNGS: Clear. HEART: Regular rate. EXTREMITIES: Left foot, the incision along the medial aspect where the big toe was removed is all healed. There are no open areas. On the heel, there is still a 2 cm decubitus that has no surrounding redness. The area has kind of a jiang dark overlying eschar. ASSESSMENT: 1. Generalized weakness and deconditioning. a. Following hospitalization for acute metabolic encephalopathy with urinary tract infection. b. Improved, intermittently walking up to 25 feet with a rolling walker and assistance. 2. Hospitalized at [facility] from 06/30 to 07/04 for acute metabolic encephalopathy with urinary tract infection. 3. Alzheimer dementia. a. Progressive. b. Complicated by a recent increase in confusion secondary to urinary tract infection that is all improving. 4. Hypertension. 5. Paroxysmal atrial fibrillation. 6. Chronic kidney disease. 7. History of osteomyelitis of the right fifth toe. a. Status post amputation of the right fifth toe and metatarsal head on . b. Healed. 8. Osteomyelitis of the left great toe and metatarsal head. a. Status post amputation of the left great toe and metatarsal head on 04/2019. b. Healed. 9. Decubitus of the left heel. a. Very gradual improvement, still has a jiang dark eschar as of 07/17. 10. Herpes simplex infections. a. Intermittent outbreaks controlled. 11. History of pulmonary embolism and deep venous thrombosis. a. Status post inferior vena cava filtration device in 2014. 12. Obesity. 13. Depression, improved. PLAN: Continue present care. Continue wound care of the left heel. Continue PT and OT. Job ID: [id number] [facility]
[2019-07-17] MEDS: Atorvastatin Calcium 40 MG TAB PO SCH (21:37)
[2019-07-17] MEDS: Donepezil HCl 10 MG TAB PO SCH (21:38)
[2019-07-17] MEDS: Melatonin 3 MG TAB PO SCH (21:38)
[2019-07-18] MEDS: Fluticasone Propionate Nasal Spray 16 gm Bottle NASAL SCH (08:21)
[2019-07-18] MEDS: Polyethylene Glycol 3350 17 GM Packet PO SCH (08:22)
[2019-07-18] MEDS: Loratadine 10 MG TAB PO SCH (08:23)
[2019-07-18] MEDS: Aspirin 325 MG TAB PO SCH (08:23)
[2019-07-18] MEDS: Acyclovir 200 mg Capsule PO SCH ×2 (08:24→21:51)
[2019-07-18] MEDS: Atorvastatin Calcium 40 MG TAB PO SCH (21:52)
[2019-07-18] MEDS: Donepezil HCl 10 MG TAB PO SCH (21:53)
[2019-07-18] MEDS: Melatonin 3 MG TAB PO SCH (21:54)
[2019-07-19] MEDS: Aspirin 325 MG TAB PO SCH (09:20)
[2019-07-19] MEDS: Fluticasone Propionate Nasal Spray 16 gm Bottle NASAL SCH (09:21)
[2019-07-19] MEDS: Loratadine 10 MG TAB PO SCH (09:22)
[2019-07-19] MEDS: Acyclovir 200 mg Capsule PO SCH (09:23)
[2019-07-19] MEDS: Polyethylene Glycol 3350 17 GM Packet PO SCH (09:23)
[2019-07-19] MEDS: Atorvastatin Calcium 40 MG TAB PO SCH (20:46)
[2019-07-19] MEDS: Melatonin 3 MG TAB PO SCH (20:46)
[2019-07-19] MEDS: Donepezil HCl 10 MG TAB PO SCH (20:47)
--- NOTE | 2019-07-20 09:04 | PRG ---
DATE OF SERVICE: 07/20/2019 SUBJECTIVE: The patient says she is feeling better. Therapist says she is making progress. She is walking up to 40 feet with her rolling walker and contact supervision. She is transferring better, but needs assistance with this. OBJECTIVE: GENERAL: The patient is walking back from the bathroom to her chair with her rolling walker and therapist by her side. She goes very slowly and was able to lower herself into her chair. She is alert, appears comfortable, and in no distress. VITAL SIGNS: Show a temperature of 97.5, pulse 66, respirations 18, O2 saturation 99% on room air, and blood pressure 133/62. LUNGS: Clear. HEART: Regular rate. EXTREMITIES: No edema. Sore on the left heel, very gradual improvement. ASSESSMENT: 1. Generalized weakness and deconditioning. a. Following hospitalization for acute metabolic encephalopathy and urinary tract infection. b. Improved. Walking up to 40 feet with a rolling walker and contact assistance. Transferring better with assistance as of 07/20/2019. 2. Hospitalized at [facility] from 06/30 to 07/04 for acute metabolic encephalopathy with urinary tract infection. 3. Alzheimer dementia. a. Progressive. b. Complicated by recent increased confusion secondary to the urinary tract infection that continues to improve as of 07/20. 4. Hypertension. 5. Paroxysmal atrial fibrillation. 6. Chronic kidney disease. 7. History of osteomyelitis of the right fifth toe. a. Status post amputation of the toe and metatarsal head on 12/27. b. Healed. 8. Osteomyelitis of the left great toe and metatarsal head. a. Status post amputation of the left great toe and metatarsal head on 03/11. b. Healed. 9. Decubitus of the left heel, gradual improvement as of 07/20. 10. Herpes simplex infection. a. Intermittent outbreaks, for which she is on chronic preventive treatment. 11. History of pulmonary embolism and deep venous thrombosis. a. Status post inferior vena caval filtration device in 2014. 12. Obesity. 13. Depression, improved. PLAN: Continue present care. Continue present wound care. Continue PT and OT. Job ID: [id number] MTDD
[2019-07-20] MEDS: Polyethylene Glycol 3350 17 GM Packet PO SCH (09:22)
[2019-07-20] MEDS: Fluticasone Propionate Nasal Spray 16 gm Bottle NASAL SCH (09:23)
[2019-07-20] MEDS: Aspirin 325 MG TAB PO SCH (09:23)
[2019-07-20] MEDS: Loratadine 10 MG TAB PO SCH (09:23)
[2019-07-20] MEDS: Acetaminophen 325 MG TAB PO PRN (09:23)
[2019-07-20] MEDS: Melatonin 3 MG TAB PO SCH (20:39)
[2019-07-20] MEDS: Donepezil HCl 10 MG TAB PO SCH (20:39)
[2019-07-20] MEDS: Atorvastatin Calcium 40 MG TAB PO SCH (20:39)
[2019-07-21] MEDS: Fluticasone Propionate Nasal Spray 16 gm Bottle NASAL SCH (09:26)
[2019-07-21] MEDS: Aspirin 325 MG TAB PO SCH (09:26)
[2019-07-21] MEDS: Polyethylene Glycol 3350 17 GM Packet PO SCH (09:27)
[2019-07-21] MEDS: Loratadine 10 MG TAB PO SCH (09:27)
--- NOTE | 2019-07-21 11:56 | PRG ---
DATE OF SERVICE: 07/21/2019 SUBJECTIVE: The patient says she thinks she is doing good. She had no complaint. She continues to work with PT and OT. She today has walked 10 and 30 feet and at times up to 50 feet with a rolling walker and caregiver assist. She requires moderate assistance with transfers. OBJECTIVE: GENERAL: The patient is sitting up in a geriatric chair. She is alert, appears comfortable, in no distress. VITAL SIGNS: Her temperature is 96.8, pulse 63, respirations 18, O2 saturation 94% on room air, blood pressure 149/72. LUNGS: Clear. HEART: Regular rate. EXTREMITIES: Left foot, there is a protective dressing over the amputation site of the big toe and metatarsal head. The incision is well healed. There is no open wound. The heel looks better. The wound is about 2 cm in diameter. The central area has a jiang dark eschar that is a little smaller. The surrounding tissue is developing a little red tissue, but does not look infected. Overall, the wound looks a little better. ASSESSMENT: 1. Generalized weakness and deconditioning. a. Following hospitalization for acute metabolic encephalopathy and urinary tract infection. b. Improved. Walking at times up to 50 feet with a rolling walker and contact assistance. Transferring, but still needing some moderate assistance as of 07/21. 2. Hospitalized at [facility] from 06/30/2019 to 07/04/2019, for acute metabolic encephalopathy with urinary tract infection. 3. Alzheimer dementia. a. Progressive. b. Complicated by recent increased confusion secondary to urinary tract infection. Improving as of 07/21. 4. Hypertension. 5. Paroxysmal atrial fibrillation. 6. Chronic kidney disease. 7. History of osteomyelitis of the right fifth toe. a. Status post amputation of the toe and metatarsal head on 12/27/2018. b. Healed. 8. Osteomyelitis of the left great toe and metatarsal head. a. Status post amputation of the left great toe and metatarsal head on 03/11. b. Healed. 9. Decubitus of the left heel, gradually improving as of 07/21. 10. Herpes simplex. a. Intermittent outbreaks, that is controlled with prophylactic medication. 11. History of pulmonary embolism and deep venous thrombosis. a. Status post inferior vena caval filtration device placement in 2014. 12. Obesity. 13. Depression, improved. PLAN: Overall, the patient is making some gradual improvement. The acute encephalopathy is all resolving. She still has the underlying Alzheimer's. Her wound on her left heel is improving. We will continue present wound care and PT and OT. Job ID: [id number] [facility]OSPITALClemencia
[2019-07-21] MEDS: Donepezil HCl 10 MG TAB PO SCH (20:28)
[2019-07-21] MEDS: Atorvastatin Calcium 40 MG TAB PO SCH (20:28)
[2019-07-21] MEDS: Melatonin 3 MG TAB PO SCH (20:29)
[2019-07-22] MEDS: Aspirin 325 MG TAB PO SCH (09:21)
[2019-07-22] MEDS: Fluticasone Propionate Nasal Spray 16 gm Bottle NASAL SCH (09:22)
[2019-07-22] MEDS: Loratadine 10 MG TAB PO SCH (09:22)
[2019-07-22] MEDS: Polyethylene Glycol 3350 17 GM Packet PO SCH (09:22)
[2019-07-22] MEDS: Atorvastatin Calcium 40 MG TAB PO SCH (21:13)
[2019-07-22] MEDS: Donepezil HCl 10 MG TAB PO SCH (21:13)
[2019-07-22] MEDS: Melatonin 3 MG TAB PO SCH (21:14)
[2019-07-23] MEDS: Aspirin 325 MG TAB PO SCH (09:37)
[2019-07-23] MEDS: Polyethylene Glycol 3350 17 GM Packet PO SCH (09:37)
[2019-07-23] MEDS: Loratadine 10 MG TAB PO SCH (09:37)
[2019-07-23] MEDS: Acetaminophen 325 MG TAB PO PRN (09:38)
[2019-07-23] MEDS: Fluticasone Propionate Nasal Spray 16 gm Bottle NASAL SCH (09:42)
[2019-07-23] MEDS ORDERED: Acyclovir 200 mg Capsule PO SCH (10:45)
[2019-07-23] MEDS: Atorvastatin Calcium 40 MG TAB PO SCH (21:42)
[2019-07-23] MEDS: Acyclovir 200 mg Capsule PO SCH (21:42)
[2019-07-23] MEDS: Donepezil HCl 10 MG TAB PO SCH (21:42)
[2019-07-23] MEDS: Melatonin 3 MG TAB PO SCH (21:43)
[2019-07-24] MEDS: Polyethylene Glycol 3350 17 GM Packet PO SCH (08:41)
[2019-07-24] MEDS: Aspirin 325 MG TAB PO SCH (08:41)
[2019-07-24] MEDS: Loratadine 10 MG TAB PO SCH (08:41)
[2019-07-24] MEDS: Acetaminophen 325 MG TAB PO PRN ×2 (08:41→15:39)
[2019-07-24] MEDS: Fluticasone Propionate Nasal Spray 16 gm Bottle NASAL SCH (08:41)
[2019-07-24] MEDS: Acyclovir 200 mg Capsule PO SCH ×2 (08:42→20:03)
--- NOTE | 2019-07-24 10:41 | PRG ---
DATE OF SERVICE: 07/24/2019 SUBJECTIVE: The patient says she is feeling better. She is walking further with physical therapy. Therapist reports that she is getting up and down easier, and she is walking a little longer distance within the halls with a rolling walker and contact assistance. OBJECTIVE: GENERAL: This morning, the patient is in the hallways, she sat in her wheelchair during exam. She is alert, appears comfortable, in no distress. VITAL SIGNS: Temperature 97.5, pulse 63, respirations 18, O2 saturation 98% on room air, blood pressure 146/67. LUNGS: Clear. HEART: Regular rate. EXTREMITIES: No edema. ASSESSMENT: 1. Generalized weakness and deconditioning. a. Following hospitalization for acute metabolic encephalopathy and urinary tract infection. b. Improved. Walking up to 50 feet with rolling walker and contact assistance. Transferring better as of 07/24. 2. Hospitalized at [facility] from 06/30 to 07/04/2019 for acute metabolic encephalopathy with urinary tract infection. 3. Alzheimer's dementia. a. Progressive. b. Complicated by recent acute confusion secondary to urinary tract infection, improved and approaching her mental status baseline as of 07/24. 4. Hypertension. 5. Paroxysmal atrial fibrillation. 6. Chronic kidney disease. 7. History of osteomyelitis of the right fifth toe. a. Status post amputation of the right fifth toe and metatarsal head on . b. Healed. 8. Osteomyelitis of the left great toe and metatarsal head. a. Status post amputation of the left great toe metatarsal head on 2018. b. Healed. 9. Decubitus on the left heel is slowly improving as of 07/24. 10. Herpes simplex. a. Intermittent outbreaks that are controlled with prophylactic medication. 11. History of pulmonary embolism and deep venous thrombosis. a. Status post inferior vena caval filtration device in 2014. 12. Obesity. 13. Depression, improved. PLAN: Continue present wound care. Continue PT and OT. Job ID: [id number] [facility]
[2019-07-24] MEDS ORDERED: Polyethylene Glycol 3350 17 GM Packet PO PRN (16:40)
[2019-07-24] MEDS: Donepezil HCl 10 MG TAB PO SCH (20:03)
[2019-07-24] MEDS: Atorvastatin Calcium 40 MG TAB PO SCH (20:03)
[2019-07-24] MEDS: Melatonin 3 MG TAB PO SCH (20:04)
[2019-07-25] MEDS: Fluticasone Propionate Nasal Spray 16 gm Bottle NASAL SCH (08:42)
[2019-07-25] MEDS: Aspirin 325 MG TAB PO SCH (08:42)
[2019-07-25] MEDS: Loratadine 10 MG TAB PO SCH (08:42)
[2019-07-25] MEDS: Acyclovir 200 mg Capsule PO SCH ×2 (08:42→20:24)
--- NOTE | 2019-07-25 10:22 | PRG ---
DATE OF SERVICE: 07/25/2019 SUBJECTIVE: The patient says she is feeling better. She continues to work with Physical Therapy and yesterday walked up to 80 feet with a rolling walker and standby assistance. She still requires [id number] assistance with transfers. OBJECTIVE: GENERAL: The patient is sitting up in a geriatric chair, just returning from a walk in the hallway with a rolling walker and caregiver assist. She appears in no distress. VITAL SIGNS: Show a temperature of 97.4, pulse 59, respirations 16, O2 saturation 98% on room air, blood pressure 131/60. LUNGS: Clear. HEART: Regular rate. EXTREMITIES: Lower extremities; trace edema. Left foot; the incision site along the amputation site of the big toe and metatarsal head has healed. The heel appears a little macerated over the ulceration. There was a foam dressing and a calcium alginate present. The wound bed is clean, but the tissue is macerated. ASSESSMENT: 1. Generalized weakness and deconditioning. a. Following hospitalization for acute metabolic encephalopathy and urinary tract infection. b. Improved. Walking now up to 80 feet with a rolling walker and standby assistance and transferring with minimal assistance as of 07/25. 2. Hospitalized at [facility] from 06/30/2019 to 07/04/2019, for acute metabolic encephalopathy with urinary tract infection. 3. Alzheimer dementia. a. Progressive. b. Complicated by the recent acute confusion secondary to the urinary tract infection, that has improved, and is now approaching her mental status baseline as of 07/25. 4. Hypertension. 5. Paroxysmal atrial fibrillation. 6. Chronic kidney disease. 7. History of osteomyelitis of the right fifth toe. a. Status post amputation of the right fifth toe and metatarsal head on . b. Healed. 8. Osteomyelitis of the left great toe and metatarsal head. a. Status post amputation of the left great toe and metatarsal head on 03/11. b. Healed. 9. Decubitus of the left heel. a. Base of the wound is clean, but wound is macerated as of 07/25/2019. 10. Herpes simplex. a. Controlled with prophylactic treatment. 11. History of pulmonary embolism and deep venous thrombosis. a. Status post inferior vena caval umbrella device placement in 2014. PLAN: Continue physical therapy. The patient has made excellent progress. The wound care will be changed to the following: Cleanse the foot daily with saline, blot dry. Apply the calcium alginate to the wound bed only. Cover with dry gauze and then a gauze wrap. Continue to offload the heel. The patient has some loose stools. I have changed the daily MiraLAX to p.r.n. I spoke with her [id number], Rosa, and they plan on trying to take her home in the next few days as a trial and see how it goes. Preparatory to a discharge soon. Job ID: [id number] [facility]TDD
[2019-07-25] MEDS: Atorvastatin Calcium 40 MG TAB PO SCH (20:23)
[2019-07-25] MEDS: Donepezil HCl 10 MG TAB PO SCH (20:24)
[2019-07-25] MEDS: Melatonin 3 MG TAB PO SCH (20:24)
[2019-07-26] MEDS: Loratadine 10 MG TAB PO SCH (08:15)
[2019-07-26] MEDS: Aspirin 325 MG TAB PO SCH (08:15)
[2019-07-26] MEDS: Fluticasone Propionate Nasal Spray 16 gm Bottle NASAL SCH (08:15)
[2019-07-26] MEDS: Acyclovir 200 mg Capsule PO SCH ×2 (08:15→20:12)
--- NOTE | 2019-07-26 12:29 | PRG ---
DATE OF SERVICE: 07/26/2019 SUBJECTIVE: Nurse report the patient is having increase in liquid stools that is malodorous and is concerned about a possibility of C diff. The patient has had no fever. She continues to do well with her therapy. OBJECTIVE: GENERAL: The patient is sitting up in the chair. She is alert, appears comfortable, and in no distress. VITAL SIGNS: Her temp is 97.3, pulse 73, respirations 18, O2 saturation 97% on room air, blood pressure 131/63. LUNGS: Clear. HEART: Regular rate. ASSESSMENT: 1. Generalized weakness and deconditioning. a. Following hospitalization for acute metabolic encephalopathy and urinary tract infection. b. Improved. Walking now up to 80 feet with a rolling walker and standby assistance and transferring with minimal assistance as of 07/26. 2. Hospitalized at [facility] from 06/30/2019 to 07/04/2019 for acute metabolic encephalopathy with urinary tract infection. 3. Alzheimer disease. a. Stable. b. Complicated by recent acute confusion secondary to the urinary tract infection. This has improved and she is getting back to her baseline as of 07/26. 4. Hypertension. 5. Paroxysmal atrial fibrillation. 6. Decubitus ulcer of the left heel gradually improving as of 07/26. 7. Diarrhea. a. Had been on MiraLAX that is stopped, but no change in the diarrhea. b. We will evaluate for C diff as of 07/26/2019. Also order a CBC and CMP. Job ID: [id number] [facility]
[2019-07-26] MEDS: Donepezil HCl 10 MG TAB PO SCH (20:12)
[2019-07-26] MEDS: Atorvastatin Calcium 40 MG TAB PO SCH (20:12)
[2019-07-26] MEDS: Melatonin 3 MG TAB PO SCH (20:12)
[2019-07-27 05:33] LABS: #Basophils 0.1 thou/uL (0.0-0.2); #Eosinphils 0.7 thou/uL (0.0-0.7); #Lymphocytes 1.1 thou/uL (1.20-3.40); #Monocytes 0.7 thou/uL (0.11-0.59); #Neutrophils 3.8 thou/uL (1.40-6.50); %Basophils 1.6 % (0.0-1.0); %Eosinophils 11.3 % (0.0-10.0); %Monocytes 11.3 % (0.0-10.0); %Neutrophils 58.8 % (42.0-75.0); Hemoglobin 9.5 g/dL (12.0-16.0); Mean Corpuscular HGB CONC 30.3 g/dL (32.0-36.0); Mean Corpuscular Hemoglobin 28.3 pg (27.0-31.0); Mean Corpuscular Volume 93.3 fL (78.0-98.0); Mean Platelet Volume 8.3 fL (7.4-10.4); Platelet Count 145 thou/uL (130-400); RBC Distribution Width 15.4 % (11.5-14.5); Red Blood Cell (RBC) Count 3.37 mill/uL (4.20-5.40); White Blood Cell (WBC) Count 6.5 thou/uL (4.8-10.8)
[2019-07-27 05:49] LABS: ALT (SGPT) 9 U/L (8-55); AST (SGOT) 13 U/L (5-34); Albumin 2.9 g/dL (3.4-4.8); Alkaline Phosphatase 65 U/L (40-110); Anion Gap 12 mmol/L (10-20); BUN (Urea Nitrogen) 17 mg/dL (9.8-20.1); Bilirubin, Total 0.3 mg/dL (0.2-1.2); Calc. Creatinine Clearance 58 mL/min (70-130); Calcium 8.2 mg/dL (7.8-10.44); Carbon Dioxide 24 mmol/L (23-31); Chloride 111 mmol/L (98-107); Estimated GFR-MDRD 36; Globulin 2.5 g/dL (2.4-3.5); Glucose 100 mg/dL (83-110); Potassium 3.7 mmol/L (3.5-5.1); Protein, Total 5.4 g/dL (6.0-8.3); Sodium 143 mmol/L (136-145)
[2019-07-27] MEDS: Fluticasone Propionate Nasal Spray 16 gm Bottle NASAL SCH (09:30)
[2019-07-27] MEDS ORDERED: Vancomycin HCl 25 MG/ML Oral PO SCH (09:30)
[2019-07-27] MEDS: Loratadine 10 MG TAB PO SCH (09:31)
[2019-07-27] MEDS: Acyclovir 200 mg Capsule PO SCH ×2 (09:31→20:40)
[2019-07-27] MEDS: Aspirin 325 MG TAB PO SCH (09:32)
--- NOTE | 2019-07-27 14:03 | PRG ---
DATE OF SERVICE: 07/27/2019 SUBJECTIVE: The patient said she is doing good today. She still has the diarrhea, maybe not as bad. Her [id number]-wy-esx feels like that her mental status is back to normal or at least to her baseline. OBJECTIVE: GENERAL: The patient is sitting up in a geriatric chair, smiling, looks very content, is conversant. She appears in no distress. VITAL SIGNS: Show a temperature 97.2, pulse 79, respirations 18, O2 saturation 99% on room air, blood pressure 136/67. LUNGS: Clear. HEART: Regular rate. EXTREMITIES: No edema. LABORATORY DATA: The stools for C diff were positive for the toxin and the antigen. ASSESSMENT: 1. Generalized weakness and deconditioning. a. Following hospitalization for acute metabolic encephalopathy and urinary tract infection. b. Improved. Walking up to 80 feet with a rolling walker and standby assistance. Transferring with minimal assistance as of 07/27. 2. Hospitalized at [facility] from 06/30 until 07/04/2019 for acute metabolic encephalopathy with urinary tract infection. 3. Alzheimer disease. a. Stable. b. Complicated by recent acute confusion secondary to urinary tract infection. c. The patient has returned to her baseline mental status as of 07/27. 4. Hypertension. 5. Paroxysmal atrial fibrillation. 6. Decubitus ulcer of the left heel that is gradually improving as of 07/27. 7. C diff associated diarrhea. a. Stool testing for antigen and toxin, both positive as of 07/27. PLAN: 1. Continue present care. 2. The patient has been put in isolation for the C diff. We will start the patient on vancomycin 125 mg p.o. every 6 hours for 10 days. Enteric contact precautions. Job ID: [id number] [facility]
[2019-07-27] MEDS: Vancomycin HCl 25 MG/ML Oral PO SCH ×2 (14:43→20:41)
[2019-07-27] MEDS: Melatonin 3 MG TAB PO SCH (20:40)
[2019-07-27] MEDS: Atorvastatin Calcium 40 MG TAB PO SCH (20:40)
[2019-07-27] MEDS: Donepezil HCl 10 MG TAB PO SCH (20:40)
[2019-07-28] MEDS: Vancomycin HCl 25 MG/ML Oral PO SCH ×4 (02:25→22:22)
[2019-07-28] MEDS: Fluticasone Propionate Nasal Spray 16 gm Bottle NASAL SCH (09:43)
[2019-07-28] MEDS: Acyclovir 200 mg Capsule PO SCH ×2 (09:44→22:21)
[2019-07-28] MEDS: Aspirin 325 MG TAB PO SCH (09:44)
[2019-07-28] MEDS: Loratadine 10 MG TAB PO SCH (09:45)
--- NOTE | 2019-07-28 14:10 | PRG ---
DATE OF SERVICE: 07/28/2019 SUBJECTIVE: The patient is doing better today. Occupational Therapy is working with her and said she is stronger. She did very well showering herself with standby assistance. The patient's diarrhea is much improved. OBJECTIVE: GENERAL: The patient is sitting up in a geriatric chair. She is alert, talkative, smiling and appears in no distress. VITAL SIGNS: Her temp is 97.9, pulse 74, respirations 18, O2 saturation on room air 99%, and blood pressure 147/63. LUNGS: Clear. HEART: Regular rate. EXTREMITIES: No edema. The left heel, the ulcer looks better. Half of the wound has a good granulation base, the other half has a little bit of a dry eschar. There is no surrounding redness. The surrounding maceration has resolved. ASSESSMENT: 1. Generalized weakness and deconditioning. a. Following hospitalization for acute metabolic encephalopathy and urinary tract infection. b. Improved. Walking up to 80 feet with a rolling walker and standby assistance. Transferring with minimal assistance as of 07/28. 2. Hospitalized at [facility] from 06/30 until 07/04/2019 for acute metabolic encephalopathy and urinary tract infection. 3. Alzheimer's disease. a. Stable. b. Complicated by recent acute confusion secondary to urinary tract infection. c. The patient is back to her baseline mental status as of 07/28. 4. Hypertension. 5. Paroxysmal atrial fibrillation, rate controlled. 6. Decubitus ulcer of the left heel that is improving as of 07/28. 7. Clostridium difficile associated diarrhea. a. Stool check for Clostridium difficile antigen and toxin positive reported on 07/27. b. Vancomycin 125 mg p.o. every 6 hours prescribed for 10 days, initiated on 07/27. c. Diarrhea is much improved as of 07/28. PLAN: Continue present care to complete 10-day course of vancomycin. Continue PT and OT. Job ID: [id number] [facility]
[2019-07-28] MEDS: Donepezil HCl 10 MG TAB PO SCH (22:21)
[2019-07-28] MEDS: Atorvastatin Calcium 40 MG TAB PO SCH (22:21)
[2019-07-28] MEDS: Melatonin 3 MG TAB PO SCH (22:21)
[2019-07-29] MEDS: Vancomycin HCl 25 MG/ML Oral PO SCH ×4 (03:19→20:18)
[2019-07-29] MEDS: Aspirin 325 MG TAB PO SCH (08:05)
[2019-07-29] MEDS: Acyclovir 200 mg Capsule PO SCH ×2 (09:05→20:17)
[2019-07-29] MEDS: Fluticasone Propionate Nasal Spray 16 gm Bottle NASAL SCH (09:07)
[2019-07-29] MEDS: Loratadine 10 MG TAB PO SCH (09:07)
[2019-07-29] MEDS: Melatonin 3 MG TAB PO SCH (20:10)
[2019-07-29] MEDS: Donepezil HCl 10 MG TAB PO SCH (20:17)
[2019-07-29] MEDS: Atorvastatin Calcium 40 MG TAB PO SCH (20:17)
[2019-07-30] MEDS: Vancomycin HCl 25 MG/ML Oral PO SCH ×4 (03:45→21:08)
[2019-07-30] MEDS: Aspirin 325 MG TAB PO SCH (08:34)
[2019-07-30] MEDS: Loratadine 10 MG TAB PO SCH (08:35)
[2019-07-30] MEDS: Acyclovir 200 mg Capsule PO SCH ×2 (08:35→21:11)
[2019-07-30] MEDS: Fluticasone Propionate Nasal Spray 16 gm Bottle NASAL SCH (08:35)
[2019-07-30] MEDS: Melatonin 3 MG TAB PO SCH (21:09)
[2019-07-30] MEDS: Donepezil HCl 10 MG TAB PO SCH (21:10)
[2019-07-30] MEDS: Atorvastatin Calcium 40 MG TAB PO SCH (21:12)
[2019-07-31] MEDS: Vancomycin HCl 25 MG/ML Oral PO SCH ×4 (04:05→20:24)
[2019-07-31] MEDS: Aspirin 325 MG TAB PO SCH (08:46)
[2019-07-31] MEDS: Loratadine 10 MG TAB PO SCH (08:47)
[2019-07-31] MEDS: Fluticasone Propionate Nasal Spray 16 gm Bottle NASAL SCH (08:50)
--- NOTE | 2019-07-31 09:59 | PRG ---
DATE OF SERVICE: 07/31/2019 SUBJECTIVE: The patient is feeling better. Therapist is with her and said she just needs a little mild assistance for transfers. She is walking better. She has not had any diarrhea. OBJECTIVE: GENERAL: The patient is sitting up in a chair, alert, appears very comfortable, in no distress. VITAL SIGNS: Her temperature is 97.9, pulse 58, respirations 18, O2 saturation 99% on room air, blood pressure 159/70. LUNGS: Clear. HEART: Regular rate. EXTREMITIES: No edema. The wound on left foot, very slow improvement. ASSESSMENT: 1. Generalized weakness and deconditioning. a. Following hospitalization for acute metabolic encephalopathy and urinary tract infection. b. Improved walking further. Transferring with minimal assistance as of . 2. Hospitalized at [facility] from 06/30 until 07/04 for acute metabolic encephalopathy and urinary tract infection. 3. Alzheimer disease. a. Stable. b. Complicated by recent acute confusion secondary to urinary tract infection. c. The patient back to her baseline mental status as of 07/28. 4. Hypertension. 5. Paroxysmal atrial fibrillation. Rate controlled. 6. Decubitus ulcer of left hip that is improving. 7. Clostridium difficile associated diarrhea. a. Stools positive for Clostridium difficile antigen and toxin on 07/27. b. Vancomycin 125 mg every 6 hours prescribed for 10 days, initiated on . c. Diarrhea has resolved as of 07/30. PLAN: Continue 10 day course of the vancomycin. Continue PT and OT. Job ID: [id number] [facility]
[2019-07-31 14:18] VITALS: BMI 38.9
[2019-07-31] MEDS: Donepezil HCl 10 MG TAB PO SCH (20:26)
[2019-07-31] MEDS: Atorvastatin Calcium 40 MG TAB PO SCH (20:27)
[2019-07-31] MEDS: Melatonin 3 MG TAB PO SCH (20:28)
[2019-07-31] MEDS: Acyclovir 200 mg Capsule PO SCH (20:28)
[2019-08-01] MEDS: Vancomycin HCl 25 MG/ML Oral PO SCH ×4 (03:58→21:35)
[2019-08-01] MEDS: Aspirin 325 MG TAB PO SCH (08:17)
[2019-08-01] MEDS: Acyclovir 200 mg Capsule PO SCH ×2 (08:17→21:36)
[2019-08-01] MEDS: Loratadine 10 MG TAB PO SCH (08:17)
[2019-08-01] MEDS: Fluticasone Propionate Nasal Spray 16 gm Bottle NASAL SCH (08:18)
[2019-08-01] MEDS: Atorvastatin Calcium 40 MG TAB PO SCH (21:36)
[2019-08-01] MEDS: Donepezil HCl 10 MG TAB PO SCH (21:37)
[2019-08-01] MEDS: Melatonin 3 MG TAB PO SCH (21:37)
[2019-08-02] MEDS: Vancomycin HCl 25 MG/ML Oral PO SCH ×4 (03:28→20:51)
[2019-08-02] MEDS: Acyclovir 200 mg Capsule PO SCH ×2 (08:10→20:52)
[2019-08-02] MEDS: Aspirin 325 MG TAB PO SCH (08:11)
[2019-08-02] MEDS: Fluticasone Propionate Nasal Spray 16 gm Bottle NASAL SCH (08:12)
[2019-08-02] MEDS: Loratadine 10 MG TAB PO SCH (08:12)
--- NOTE | 2019-08-02 09:38 | PRG ---
DATE OF SERVICE: 08/02/2019 SUBJECTIVE: The patient is doing better. She is feeling better. She has not had any diarrhea presently. She has walked in the hallway with physical therapist. Therapist says she is now walking up to 60 feet. Transferring easier. Nurse reports the ulcer on the left heel is about the same. Today, she has had a little more swelling in her legs, left greater than the right, which is chronic. OBJECTIVE: GENERAL: The patient is standing holding onto her walker, having walked in the hallways. LUNGS: Clear. HEART: Regular rate. EXTREMITIES: 1+ edema of the legs, left leg is a little larger than the right. ASSESSMENT: 1. Generalized weakness and deconditioning. a. Following hospitalization for acute metabolic encephalopathy and urinary tract infection. b. Improved, walking up to 60 feet with a rolling walker and minimal assistance with transfers as of 08/01. 2. Hospitalized at [facility] from 06/30 until 07/04 for acute metabolic encephalopathy and urinary tract infection. 3. Alzheimer disease. a. Stable. b. Complicated by recent acute confusion secondary to urinary tract infection. c. The patient remains at her baseline mental status as of 08/01. 4. Hypertension. 5. Paroxysmal atrial fibrillation. 6. Decubitus ulcer of the left heel. 7. Venous insufficiency of the lower extremities, left little greater than the right. 8. Clostridium difficile associated diarrhea. a. Stools positive for Clostridium difficile antigen and toxin on 07/27. b. Vancomycin 125 mg every 6 hours, prescribed for 10 days, initiated on . PLAN: Complete the 10-day course of vancomycin. Continue PT/OT. Continue care to the decubitus on the left heel. Try knee-high support hose and elevate the feet. Job ID: [id number] [facility]
[2019-08-02] MEDS: Melatonin 3 MG TAB PO SCH (20:52)
[2019-08-02] MEDS: Atorvastatin Calcium 40 MG TAB PO SCH (20:52)
[2019-08-02] MEDS: Donepezil HCl 10 MG TAB PO SCH (20:52)
[2019-08-03] MEDS: Vancomycin HCl 25 MG/ML Oral PO SCH ×4 (03:06→20:30)
[2019-08-03] MEDS: Aspirin 325 MG TAB PO SCH (08:43)
[2019-08-03] MEDS: Acyclovir 200 mg Capsule PO SCH ×2 (08:43→20:30)
[2019-08-03] MEDS: Fluticasone Propionate Nasal Spray 16 gm Bottle NASAL SCH (08:44)
[2019-08-03] MEDS: Loratadine 10 MG TAB PO SCH (08:44)
--- NOTE | 2019-08-03 11:38 | PRG ---
DATE OF SERVICE: 08/03/2019 SUBJECTIVE: The patient is doing better. She is walking further, transferring independently other than just standby assistance. Preparations are being made for her to be discharged tomorrow. The patient has had no diarrhea. OBJECTIVE: GENERAL: The patient is resting in a chair after walking a long distance. She is alert and appears very comfortable, in no distress. VITAL SIGNS: Temperature 96.3, pulse 64, respirations 18, O2 saturation 98% on room air, and blood pressure 141/72. LUNGS: Clear. HEART: Regular rate. EXTREMITIES: Trace edema. ASSESSMENT: 1. Generalized weakness and deconditioning. a. Following hospitalization for acute metabolic encephalopathy and urinary tract infection. b. Continued improvement. Walking further with a rolling walker and transferring independent with just standby assistance as of 08/03/2019. 2. Hospitalized at [facility] from 06/30 until 07/04 for acute metabolic encephalopathy and urinary tract infection. 3. Alzheimer disease. a. Stable. b. Complicated by recent confusion secondary to urinary tract infection. c. The patient remains at her baseline mental status as of 08/03/2019. 4. Hypertension. 5. Paroxysmal atrial fibrillation. 6. Decubitus ulcer of the left heel. 7. Venous insufficiency of the lower extremities, left greater than right. 8. Clostridium difficile associated diarrhea. a. Stools positive for Clostridium difficile antigen and toxin on 07/27. b. Vancomycin 125 mg ever 6 hours p.o., prescribed for 10 days, initiated on 07/27. c. Diarrhea has resolved. The patient is on her 8th day of the vancomycin. PLAN: Continue present care. Complete the 10-day course of vancomycin. Plan discharge in the morning. Job ID: [id number] [facility]
[2019-08-03 19:54] VITALS: TEMP 97.3
[2019-08-03] MEDS: Atorvastatin Calcium 40 MG TAB PO SCH (20:29)
[2019-08-03] MEDS: Donepezil HCl 10 MG TAB PO SCH (20:30)
[2019-08-03] MEDS: Melatonin 3 MG TAB PO SCH (20:30)
[2019-08-04] MEDS: Vancomycin HCl 25 MG/ML Oral PO SCH ×2 (03:16→08:39)
[2019-08-04] MEDS: Fluticasone Propionate Nasal Spray 16 gm Bottle NASAL SCH (08:39)
[2019-08-04] MEDS: Aspirin 325 MG TAB PO SCH (08:40)
[2019-08-04] MEDS: Loratadine 10 MG TAB PO SCH (08:41)
[2019-08-04] MEDS: Acyclovir 200 mg Capsule PO SCH (08:41)
[2019-08-04 08:43] VITALS: BP 166/73
--- NOTE | 2019-08-05 08:03 | DIS ---
DATE OF ADMISSION: 07/04/2019 DATE OF DISCHARGE: 08/04/2019 FINAL DIAGNOSES: 1. Generalized weakness and deconditioning. a. Following hospitalization for acute metabolic encephalopathy and urinary tract infection. b. Continued improvement. Walking further with a rolling walker and transferring independent with standby assistance as of . 2. Hospitalized at [facility] from 06/30 until 07/04/2019 for acute metabolic encephalopathy and urinary tract infection. 3. Alzheimer disease. a. Stable. b. Complicated by recent confusion secondary to urinary tract infection. c. The patient continues to remain at her baseline mental status as of . 4. Hypertension. 5. Paroxysmal atrial fibrillation. 6. Venous insufficiency of the lower extremities, left greater than the right. 7. Clostridium difficile associated diarrhea. a. Stool was positive for Clostridium difficile antigen and toxin on 07/27. b. Started on vancomycin 125 mg every 6 hours on 07/27 for a 10-day course. c. Diarrhea has resolved. 8. Stage III decubitus of the left heel. a. Improving. 9. Herpes simplex infection, controlled with acyclovir. 10. History of pulmonary embolism and deep vein thrombosis. a. Status post inferior vena cava filtration device in 2014. 11. Depression controlled. 12. Osteomyelitis of the left great toe and metatarsal head. a. Status post amputation of the left great toe and metatarsal head on 03/11. b. Healed. 13. History of osteomyelitis of the right fifth toe. a. Status post amputation of the toe and metatarsal head on 12/27/2018. b. Healed. SUMMARY: The patient is a 79-year-old white female, who lives at home with her and has a primary caregiver and family that lives close assisting. Home Health also sees her. She has a history of hypertension, paroxysmal atrial fibrillation, venous insufficiency of the lower extremity, and depression that is controlled. She has had an amputation of the left great toe and also of the metatarsal head and also an amputation of the right fifth toe and metatarsal head in 2019. These have healed other than a tiny spot on the incision of the left foot. She has Alzheimer disease. She was hospitalized at [facility] from until 07/04/2019 for acute metabolic encephalopathy from urinary tract infection. She was left much weaker than usual and consequently was transferred to [facility] on 07/04/2019. She had a stage III decubitus over her left heel with overlying eschar and a tiny wound on the incision where the left toe was amputated. She is very weak and still encephalopathic. During her hospitalization, the wound on the incision of the left foot healed. The ulceration on the heel improved, where it was down to about 3 cm in diameter. Half of the wound still has a little brownish eschar and the other half had good granulation tissue. The patient while hospitalized was started on sertraline for depression and also her Namenda was increased to 10 mg daily. She was continued on the Aricept 5 mg daily. Gradually the metabolic encephalopathy from the recent infection resolved and she returned to her mental status baseline. Gradually, her strength improved and she began working very well with Physical Therapy. At the time of her discharge on 08/04/2019, she was walking up to 90 feet several times a day with a rolling walker and the caregiver's minimal assistance. She was transferring with minimal assistance. During her hospitalization, she developed diarrhea. Her MiraLAX was stopped, but the diarrhea persisted. The stools were analyzed for Clostridium difficile and were positive for the toxin and the antigen, this was reported back on 07/27. She was started on vancomycin 125 mg p.o. every 6 hours and prescribed for 10-day course. At her discharge, she was getting her 9th day of a 10-day course. These last two days will be continued at home. Her diarrhea had resolved. Her condition had improved such that the family felt like they could manage her at home along with Home Health. There, Home Health will continue to see her, dress the wound and the family will also dress the wound the days the home health nurses are not there. She will receive home physical therapy. DISPOSITION DIET: Regular diet, no added salt. ACTIVITIES: Ambulate with the use of a walker. Fall precaution. Wound care. Wound on the left heel should be cleaned daily with saline, blotted dry, applied calcium alginate pad and an overlying Mepilex. When the patient is lying down, this heel should be offloaded. MEDICATIONS: 1. Acetaminophen 650 mg every 6 hours as needed. 2. Acyclovir 400 mg b.i.d. 3. Aspirin 325 mg daily. 4. Atorvastatin 20 mg at bedtime. 5. Vitamin D3 of 5000 units daily. 6. Diltiazem extended release 120 mg daily. 7. Donepezil 5 mg nightly. 8. Fluticasone nasal spray two sprays each nostril daily. 9. Loratadine 10 mg daily as needed. 10. Melatonin 3 mg at bedtime. 11. Namenda 10 mg at bedtime. 12. Omeprazole 20 mg daily. 13. MiraLAX 17 g 8 ounces water p.r.n. 14. Sertraline 25 mg one daily. 15. Vancomycin 125 mg p.o. every 6 hours x2 days, that is eight doses. Home Health to see the patient for wound care and in-home physical therapy. The patient will be seen by myself and follow up in 2 to 3 weeks with CBC and CMP. CODE STATUS: Full code. Job ID: [id number] [facility]
== END 2019-08-04 13:10 | disposition home or self-care (01) | DRG 689 ==
LOC: MADMS 18:35
PROVIDERS: ADMIT Family Medicine; ATTEND Family Medicine
DX: N39.0 Urinary tract infection, site not specified (principal); G93.41 Metabolic encephalopathy; L89.623 Pressure ulcer of left heel, stage 3; A04.72 Enterocolitis due to Clostridium difficile, not specified as recurrent; R53.81 Other malaise; G30.9 Alzheimer's disease, unspecified; F02.80 Dementia in other diseases classified elsewhere, unspecified severity, without behavioral disturbance, psychotic disturbance, mood disturbance, and anxiety; I48.0 Paroxysmal atrial fibrillation; I87.2 Venous insufficiency (chronic) (peripheral); I12.9 Hypertensive chronic kidney disease with stage 1 through stage 4 chronic kidney disease, or unspecified chronic kidney disease; E78.5 Hyperlipidemia, unspecified; H35.30 Unspecified macular degeneration; E66.9 Obesity, unspecified; B00.9 Herpesviral infection, unspecified; N18.9 Chronic kidney disease, unspecified; F32.9 Major depressive disorder, single episode, unspecified; G62.9 Polyneuropathy, unspecified; M47.897 Other spondylosis, lumbosacral region; Z96.653 Presence of artificial knee joint, bilateral; Z79.01 Long term (current) use of anticoagulants; Z86.718 Personal history of other venous thrombosis and embolism; Z86.711 Personal history of pulmonary embolism; Z88.6 Allergy status to analgesic agent; Z88.8 Allergy status to other drugs, medicaments and biological substances; Z68.39 Body mass index [BMI] 39.0-39.9, adult; Z90.49 Acquired absence of other specified parts of digestive tract; Z90.710 Acquired absence of both cervix and uterus
CPT/HCPCS: 80053; 85025; 87324; 87449; 90471; 90670; G0009

== ENCOUNTER 2019-08-11 15:36 | Outpatient (CLI) | payer MEDICARE ==
[2019-08-11 16:11] LABS: #Basophils 0.1 thou/uL (0.0-0.2); #Eosinphils 0.2 thou/uL (0.0-0.7); #Lymphocytes 0.7 thou/uL (1.20-3.40); #Monocytes 0.7 thou/uL (0.11-0.59); %Basophils 1.6 % (0.0-1.0); %Eosinophils 2.6 % (0.0-10.0); %Lymphocytes 8.8 % (21.0-51.0); %Monocytes 8.8 % (0.0-10.0); %Neutrophils 78.1 % (42.0-75.0); Mean Corpuscular HGB CONC 30.5 g/dL (32.0-36.0); Mean Corpuscular Hemoglobin 28.5 pg (27.0-31.0); Mean Corpuscular Volume 93.5 fL (78.0-98.0); Mean Platelet Volume 8.9 fL (7.4-10.4); Platelet Count 196 thou/uL (130-400); RBC Distribution Width 16.5 % (11.5-14.5); White Blood Cell (WBC) Count 7.7 thou/uL (4.8-10.8)
[2019-08-11 16:19] LABS: ALT (SGPT) 10 U/L (8-55); AST (SGOT) 12 U/L (5-34); Albumin 3.2 g/dL (3.4-4.8); Alkaline Phosphatase 80 U/L (40-110); Bilirubin, Direct 0.3 mg/dL (0.1-0.3); Bilirubin, Total 0.5 mg/dL (0.2-1.2); Cardiac Risk 3.2 (Less than 4.5); Cholesterol 102 mg/dl (< 200 Desired); HDL Cholesterol 32 mg/dL (>60 Neg Risk); LDL Cholesterol, Calculated 49 mg/dL; Protein, Total 5.3 g/dL (6.0-8.3); Triglycerides 105 mg/dL (Less than 150)
== END 2019-08-11 15:37 | disposition home or self-care (01) ==
LOC: MADLABBHPM 15:36
PROVIDERS: ATTEND Family Medicine
DX: N18.9 Chronic kidney disease, unspecified (principal); G93.41 Metabolic encephalopathy; G20 Parkinson's disease; R60.9 Edema, unspecified; N39.0 Urinary tract infection, site not specified
CPT/HCPCS: 80061; 80076; 85025

== ENCOUNTER 2019-08-14 13:48 | Emergency (ER) | payer MEDICARE ==
[~2019-08-14 13:48] MED LIST changes: +Sodium Chloride 0.9% 500 ML BAG ONE; -Sulfameth/Trimethoprim DS 800-160mg TAB ONE
[2019-08-14] MEDS ORDERED: Sodium Chloride 0.9% 1,000 ML ONE (14:40)
[2019-08-14] MEDS ORDERED: cefTRIAXone\\ROCEPHIN 2 GM VIAL ONE (14:40)
[2019-08-14] MEDS ORDERED: Acetaminophen 500 MG TAB ONE (14:40)
[2019-08-14] MEDS ORDERED: Sodium Chloride 0.9% 100 ML ONE (14:40)
--- NOTE | 2019-08-14 14:47 | RAD ---
SINGLE VIEW OF THE CHEST: COMPARISON: 06/30/2019. COMPARISON: Fever. FINDINGS: A single view of the chest shows a normal-size cardiomediastinal silhouette. There is stable elevati on of the right hemidiaphragm. There is no evidence of consolidation, mass, or pleural effusion. Michaud rdware is seen in the right shoulder. IMPRESSION: No evidence of acute cardiopulmonary disease. POS: [facility]
[2019-08-14 14:51] LABS: #Basophils 0.1 thou/uL (0.0-0.2); #Lymphocytes 0.1 thou/uL (1.20-3.40); #Monocytes 0.4 thou/uL (0.11-0.59); #Neutrophils 16.2 thou/uL (1.40-6.50); %Basophils 0.5 % (0.0-1.0); %Lymphocytes 0.8 % (21.0-51.0); %Monocytes 2.6 % (0.0-10.0); %Neutrophils 96.1 % (42.0-75.0); Mean Corpuscular HGB CONC 29.7 g/dL (32.0-36.0); Mean Corpuscular Hemoglobin 28.1 pg (27.0-31.0); Mean Corpuscular Volume 94.6 fL (78.0-98.0); Mean Platelet Volume 7.1 fL (7.4-10.4); Platelet Count 220 thou/uL (130-400); RBC Distribution Width 16.3 % (11.5-14.5); Red Blood Cell (RBC) Count 3.92 mill/uL (4.20-5.40); White Blood Cell (WBC) Count 16.9 thou/uL (4.8-10.8)
[2019-08-14 15:06] LABS: Bilirubin Negative (Negative); Blood, Urine Negative (Negative); Clarity Clear (Clear); Glucose, Urine (Dipstick) Negative (Negative); Leukocyte Negative (Negative); Nitrite Negative (Negative); Protein, Urine (Dipstick) 30 mg/dL (Neg-Trace); Urobilinogen 0.2 mg/dL (Less than 2)
[2019-08-14 15:07] LABS: ALT (SGPT) 11 U/L (8-55); AST (SGOT) 13 U/L (5-34); Albumin 3.6 g/dL (3.4-4.8); Alkaline Phosphatase 97 U/L (40-110); Anion Gap 17 mmol/L (10-20); BUN (Urea Nitrogen) 13 mg/dL (9.8-20.1); Calc. Creatinine Clearance 0 mL/min (70-130); Calcium 8.7 mg/dL (7.8-10.44); Carbon Dioxide 22 mmol/L (23-31); Chloride 107 mmol/L (98-107); Estimated GFR-MDRD 52; Globulin 2.8 g/dL (2.4-3.5); Glucose 143 mg/dL (83-110); Potassium 3.5 mmol/L (3.5-5.1); Protein, Total 6.4 g/dL (6.0-8.3); Sodium 142 mmol/L (136-145)
[2019-08-14 15:22] LABS: Bacteria/HPF Rare-Few HPF (None Seen); Mucous/LPF Rare LPF (<2+); RBC/HPF None Seen HPF (0-3); Squamous Epithelial 0-3 HPF (0-3); WBC/HPF 0-3 HPF (0-3)
--- NOTE | 2019-08-14 16:19 | RAD ---
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 There is partial amputation involving the small digit metatarsal through the metatarsal neck. No acute fracture is evident. 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 Lisfranc alignment: Lisfranc alignment appears within normal limits. Soft tissues: There is an ulcer involving the heel of the left foot that appears slightly more pronou nced than prior exam and measures approximately 2.8 cm in its greatest AP dimension. No radiopaque foreign body is evident. IMPRESSION: No definite radiographic evidence of osteomyelitis. Soft tissue ulceration along the plan tar aspect of the left heel.
== END 2019-08-14 17:50 | disposition short-term general hospital (02) ==
LOC: MADERS 13:48
DX: R50.9 Fever, unspecified (principal); G30.9 Alzheimer's disease, unspecified; F02.80 Dementia in other diseases classified elsewhere, unspecified severity, without behavioral disturbance, psychotic disturbance, mood disturbance, and anxiety; I48.91 Unspecified atrial fibrillation; K21.9 Gastro-esophageal reflux disease without esophagitis; G62.9 Polyneuropathy, unspecified; R19.7 Diarrhea, unspecified; R60.0 Localized edema; Z79.82 Long term (current) use of aspirin; Z79.899 Other long term (current) drug therapy
CPT/HCPCS: 36415; 51701; 71045; 80053; 81003; 81015; 83605; 85025; 87040; 87086; 96361; 96365; 96367; A4353; J0696; J3370; J3490; J7050

== ENCOUNTER 2019-10-25 12:47 | Outpatient (CLI) | payer MEDICARE ==
[2019-10-25 13:05] LABS: #Basophils 0.1 thou/uL (0.0-0.2); #Eosinphils 0.6 thou/uL (0.0-0.7); #Lymphocytes 0.8 thou/uL (1.20-3.40); #Monocytes 0.5 thou/uL (0.11-0.59); #Neutrophils 5.9 thou/uL (1.40-6.50); %Basophils 1.4 % (0.0-1.0); %Eosinophils 7.2 % (0.0-10.0); %Lymphocytes 9.6 % (21.0-51.0); %Monocytes 6.6 % (0.0-10.0); %Neutrophils 75.2 % (42.0-75.0); Hemoglobin 10.7 g/dL (12.0-16.0); Mean Corpuscular HGB CONC 30.8 g/dL (32.0-36.0); Mean Corpuscular Hemoglobin 26.8 pg (27.0-31.0); Mean Corpuscular Volume 87.1 fL (78.0-98.0); Mean Platelet Volume 8.6 fL (7.4-10.4); Platelet Count 285 thou/uL (130-400); RBC Distribution Width 15.8 % (11.5-14.5); Red Blood Cell (RBC) Count 3.97 mill/uL (4.20-5.40); White Blood Cell (WBC) Count 7.9 thou/uL (4.8-10.8)
[2019-10-25 13:14] LABS: Anion Gap 18 mmol/L (10-20); BUN (Urea Nitrogen) 19 mg/dL (9.8-20.1); Calc. Creatinine Clearance 0 mL/min (70-130); Calcium 8.8 mg/dL (7.8-10.44); Carbon Dioxide 21 mmol/L (23-31); Chloride 107 mmol/L (98-107); Estimated GFR-MDRD 57; Glucose 111 mg/dL (83-110); Potassium 4.5 mmol/L (3.5-5.1); Sodium 141 mmol/L (136-145)
== END 2019-10-25 12:48 | disposition home or self-care (01) ==
LOC: MADLABSP 12:47
PROVIDERS: ATTEND Family Medicine
DX: I12.9 Hypertensive chronic kidney disease with stage 1 through stage 4 chronic kidney disease, or unspecified chronic kidney disease (principal); N18.9 Chronic kidney disease, unspecified; L89.622 Pressure ulcer of left heel, stage 2
CPT/HCPCS: 80048; 85025

== ENCOUNTER 2019-10-26 18:35 | Outpatient (CLI) | payer MEDICARE ==
[2019-10-26 18:57] LABS: Bilirubin Negative (Negative); Blood, Urine Negative (Negative); Clarity Slightly Cloudy (Clear); Glucose, Urine (Dipstick) Negative (Negative); Leukocyte Trace (Negative); Nitrite Positive (Negative); Protein, Urine (Dipstick) Negative (Neg-Trace); Urobilinogen 0.2 mg/dL (Less than 2)
[2019-10-26 19:02] LABS: Bacteria/HPF 3+ HPF (None Seen); RBC/HPF 0-3 HPF (0-3)
== END 2019-10-26 18:36 | disposition home or self-care (01) ==
LOC: MADLAB 18:35
PROVIDERS: ATTEND Family Medicine
DX: I12.9 Hypertensive chronic kidney disease with stage 1 through stage 4 chronic kidney disease, or unspecified chronic kidney disease (principal); N18.9 Chronic kidney disease, unspecified; D63.1 Anemia in chronic kidney disease; R30.0 Dysuria; Z87.440 Personal history of urinary (tract) infections
CPT/HCPCS: 81001; 87077; 87086; 87186

== ENCOUNTER 2019-11-28 13:43 | Outpatient (CLI) | payer MEDICARE ==
[2019-11-28 14:09] LABS: Bilirubin Negative (Negative); Blood, Urine Trace (Negative); Clarity Cloudy (Clear); Glucose, Urine (Dipstick) Negative (Negative); Leukocyte Small (Negative); Nitrite Positive (Negative); Protein, Urine (Dipstick) 100 mg/dL (Neg-Trace); Urobilinogen 0.2 mg/dL (Less than 2)
[2019-11-28 14:21] LABS: Bacteria/HPF 3+ HPF (None Seen); WBC/HPF Greater Than 50 HPF (0-3)
[2019-11-28 14:22] LABS: Calcium Oxalate Crystals 1+ HPF (None Seen)
[2019-11-28 21:41] LABS: Hemoglobin A1c 5.8 % (4.0-6.0)
== END 2019-11-28 13:44 | disposition home or self-care (01) ==
LOC: MADLAB 13:43
PROVIDERS: ATTEND Family Medicine
DX: E11.51 Type 2 diabetes mellitus with diabetic peripheral angiopathy without gangrene (principal); E11.22 Type 2 diabetes mellitus with diabetic chronic kidney disease; N18.9 Chronic kidney disease, unspecified
CPT/HCPCS: 81001; 83036; 87077; 87086; 87186

== ENCOUNTER 2020-05-26 12:28 | Emergency (ER) | payer MEDICARE ==
[2020-05-26 12:52] LABS: #Basophils 0.1 thou/uL (0.0-0.2); #Eosinphils 0.2 thou/uL (0.0-0.7); #Lymphocytes 0.5 thou/uL (1.20-3.40); #Monocytes 0.5 thou/uL (0.11-0.59); #Neutrophils 8.6 thou/uL (1.40-6.50); %Basophils 0.9 % (0.0-1.0); %Eosinophils 1.8 % (0.0-10.0); %Lymphocytes 4.8 % (21.0-51.0); %Neutrophils 87.5 % (42.0-75.0); Hemoglobin 12.5 g/dL (12.0-16.0); Mean Corpuscular HGB CONC 31.7 g/dL (32.0-36.0); Mean Corpuscular Hemoglobin 28.6 pg (27.0-31.0); Mean Corpuscular Volume 90.4 fL (78.0-98.0); Mean Platelet Volume 7.9 fL (7.4-10.4); Platelet Count 216 thou/uL (130-400); RBC Distribution Width 13.5 % (11.5-14.5); Red Blood Cell (RBC) Count 4.37 mill/uL (4.20-5.40); White Blood Cell (WBC) Count 9.8 thou/uL (4.8-10.8)
--- NOTE | 2020-05-26 13:05 | RAD ---
Chest AP view INDICATION: Altered mental status COMPARISON: August 14, 2019 FINDINGS: Lungs: Right basilar atelectasis is stable. Cardiac silhouette: Mild cardiac megaly is stable. Pulmonary vasculature: Normal Pleural spaces: There is stable elevation the right hemidiaphragm. No pleural effusion or pneumothor ax is evident. Upper abdomen: Surgical clips within upper abdomen are present. Osseous structures: No acute osseous abnormality. Additional findings: None. IMPRESSION: No acute cardiopulmonary abnormality.
--- NOTE | 2020-05-26 13:15 | CT ---
CT Brain WO Con: 05/26/2020 12:40 PM CLINICAL HISTORY: Altered mental status. IMAGING TECHNIQUE: Multiple CT images were obtained of the brain without IV contrast. COMPARISON: Prior CT the brain dated June 01, 2018 FINDINGS: BRAIN: Evidence of acute infarct: None. 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 There is worsening moderate to severe chronic small vessel white matter ischemic change. Evidence of intracranial hemorrhage: None. Evidence of brain volume loss:There is diffuse generalized cerebral and cerebellar atrophy. Evidence of midline shift: Third ventricle and septum pellucidum are midline. Ventricles: Normal. No hydrocephalus. SKULL: Intact. VISUALIZED PARANASAL SINUSES: Clear. MASTOID AIR CELLS: Clear. EXTRACRANIAL SOFT TISSUES: Normal. IMPRESSION: 1. No acute intracranial abnormality. 2. Chronic ischemic changes above
[2020-05-26] MEDS ORDERED: Sodium Chloride 0.9% 500 ML ONE (13:20)
[2020-05-26] MEDS ORDERED: Aspirin Chewable 81 MG TAB ONE (13:24)
[2020-05-26 13:29] LABS: Bilirubin Negative (Negative); Blood, Urine Negative (Negative); Clarity Clear (Clear); Glucose, Urine (Dipstick) Negative (Negative); Ketone, Urine Negative (Negative); Leukocyte Negative (Negative); Nitrite Negative (Negative); Protein, Urine (Dipstick) 100 mg/dL (Neg-Trace); Specific Gravity, Urine 1.025 (1.005-1.030); Urobilinogen 0.2 mg/dL (Less than 2); pH, Urine 5.5 (5.0-9.0)
[2020-05-26 13:31] LABS: CKMB 1.7 ng/mL (0-6.6)
[2020-05-26 13:40] LABS: Bacteria/HPF Rare-Few HPF (None Seen); RBC/HPF 0-3 HPF (0-3); WBC/HPF 0-3 HPF (0-3)
[2020-05-26 13:42] LABS: Mucous/LPF Few LPF (<2+)
[2020-05-26 14:01] LABS: ALT (SGPT) 7 U/L (8-55); AST (SGOT) 14 U/L (5-34); Albumin 3.5 g/dL (3.4-4.8); Alkaline Phosphatase 88 U/L (40-110); Anion Gap 17 mmol/L (10-20); BUN (Urea Nitrogen) 19 mg/dL (9.8-20.1); Bilirubin, Total 0.4 mg/dL (0.2-1.2); CK (CPK) 50 U/L (29-168); Calc. Creatinine Clearance 0 mL/min (70-130); Calcium 8.9 mg/dL (7.8-10.44); Carbon Dioxide 22 mmol/L (23-31); Chloride 107 mmol/L (98-107); Globulin 2.9 g/dL (2.4-3.5); Glucose 127 mg/dL (83-110); Potassium 3.6 mmol/L (3.5-5.1); Protein, Total 6.4 g/dL (6.0-8.3); Sodium 142 mmol/L (136-145)
== END 2020-05-26 17:15 | disposition short-term general hospital (02) ==
LOC: MADERS 12:28
DX: R53.1 Weakness (principal); R79.89 Other specified abnormal findings of blood chemistry; I48.91 Unspecified atrial fibrillation; K21.9 Gastro-esophageal reflux disease without esophagitis; G62.9 Polyneuropathy, unspecified; Z79.82 Long term (current) use of aspirin; Z79.899 Other long term (current) drug therapy
CPT/HCPCS: 51701; 70450; 71045; 80053; 81003; 81015; 82550; 82553; 83605; 83880; 84484; 85025; 87086; 93005; J7030

== ENCOUNTER 2020-07-19 11:05 | Outpatient (CLI) | payer MEDICARE ==
[2020-07-19 13:14] LABS: Bilirubin Negative (Negative); Blood, Urine Large (Negative); Clarity Cloudy (Clear); Glucose, Urine (Dipstick) Negative (Negative); Ketone, Urine Negative (Negative); Leukocyte Trace (Negative); Nitrite Positive (Negative); Protein, Urine (Dipstick) 30 mg/dL (Neg-Trace); Specific Gravity, Urine 1.025 (1.005-1.030); Urobilinogen 0.2 mg/dL (Less than 2)
[2020-07-19 14:03] LABS: Bacteria/HPF 4+ HPF (None Seen); RBC/HPF Greater than 50 HPF (0-3); WBC/HPF 21-50 HPF (0-3)
== END 2020-07-19 11:06 | disposition home or self-care (01) ==
LOC: MADLABSP 11:05
PROVIDERS: ATTEND Family Medicine
DX: A41.9 Sepsis, unspecified organism (principal)
CPT/HCPCS: 81001; 87077; 87086; 87186